=== PATIENT | male | born 1950 | race Caucasian/White ===

== ENCOUNTER → 2016-02-24 | Outpatient (CLI) | payer OTHER, MEDICARE ==
[~2016-02-24] MED LIST: AMOX500T3 PO; ATOR-22 PO; CITA10TA4 PO; CITA20TA9 PO; FLUC200T PO; GLC/500 PO; LEVO50TA PO; LVMI SC; LVMI SQ; METF500T5 PO; METR-163 PO; PIPE1INJ11 IV; PROB1TAB16 PO; SULF800T23 PO; VANC5CAP PO
[2016-02-24 13:21] LABS: HEMATOCRIT 28.7 % (42-52); MEAN CELL VOLUME 76.7 fL (80-100); MEAN CORPUSCULAR HEMOGLOBIN 24.9 pg (25-34); MEAN CORPUSCULAR HGB CONC 32.4 g/dl (32-36); MEAN PLATELET VOLUME 10.1 fL (7.4-10.4); PLATELET COUNT 347 K/uL (130-400); RED BLOOD COUNT 3.74 M/uL (4.7-6.1); WHITE BLOOD COUNT 8.27 K/uL (4.8-10.8)
[2016-02-24 13:32] LABS: ALT/SGPT 38 U/L (12-78); AST/SGOT 21 U/L (15-37); BLOOD UREA NITROGEN 15 mg/dl (7-18); BUN/CREATININE RATIO 14.6 (10-20); CALCIUM 8.5 mg/dl (8.5-10.1); CARBON DIOXIDE 28 mmol/L (21-32); CHLORIDE 103 mmol/L (98-107); GLUCOSE 215 mg/dl (70-99); POTASSIUM 4.1 mmol/L (3.5-5.1); SODIUM 137 mmol/L (136-145)
[2016-02-24 13:35] LABS: ALB/GLOB RATIO 0.6 (0.9-2); ALKALINE PHOSPHATASE 85 U/L (45-117); C-REACTIVE PROTEIN 0.83 mg/dl (0-0.29)
== END | disposition home or self-care (01) ==
LOC: C.LABSPEC 11:15
PROVIDERS: ATTEND Internal Medicine Infectious Disease
DX: L03.90 Cellulitis, unspecified (principal)

== ENCOUNTER → 2016-03-04 | Outpatient (CLI) | payer OTHER ==
[2016-03-04 20:02] LABS: HEMATOCRIT 31.3 % (42-52); MEAN CELL VOLUME 77.3 fL (80-100); MEAN CORPUSCULAR HEMOGLOBIN 24.9 pg (25-34); MEAN CORPUSCULAR HGB CONC 32.3 g/dl (32-36); MEAN PLATELET VOLUME 10.2 fL (7.4-10.4); PLATELET COUNT 357 K/uL (130-400); RED BLOOD COUNT 4.05 M/uL (4.7-6.1); WHITE BLOOD COUNT 7.49 K/uL (4.8-10.8)
[2016-03-04 20:19] LABS: ALT/SGPT 25 U/L (12-78); BLOOD UREA NITROGEN 24 mg/dl (7-18); BUN/CREATININE RATIO 27.6 (10-20); C-REACTIVE PROTEIN < 0.29 mg/dl (0-0.29); CALCIUM 9.1 mg/dl (8.5-10.1); CARBON DIOXIDE 27 mmol/L (21-32); CHLORIDE 102 mmol/L (98-107); CREATININE 0.86 mg/dl (0.60-1.40); GLUCOSE 161 mg/dl (70-99); POTASSIUM 3.9 mmol/L (3.5-5.1); SODIUM 140 mmol/L (136-145)
[2016-03-04 20:22] LABS: ALB/GLOB RATIO 0.7 (0.9-2); ALKALINE PHOSPHATASE 88 U/L (45-117); AST/SGOT 19 U/L (15-37)
== END | disposition home or self-care (01) ==
LOC: C.LABSPEC 10:50
PROVIDERS: ATTEND Internal Medicine Infectious Disease
DX: Z51.81 Encounter for therapeutic drug level monitoring (principal); Z79.2 Long term (current) use of antibiotics

== ENCOUNTER → 2016-03-12 | Outpatient (CLI) | payer OTHER ==
[~2016-03-12] MED LIST changes: -FLUC200T PO; -METR-163 PO; -PIPE1INJ11 IV
== END | disposition home or self-care (01) ==
LOC: C.LABSPEC 09:13
PROVIDERS: ATTEND Internal Medicine
DX: B96.89 Other specified bacterial agents as the cause of diseases classified elsewhere (principal)

== ENCOUNTER 2016-03-20 12:35 | Day surgery (SDC) | payer OTHER, MEDICARE ==
[~2016-03-20] VITALS: Ht 177.8 cm; Wt 81.0 kg
[~2016-03-20 12:35] MED LIST changes: -AMOX500T3 PO; -CITA20TA9 PO; -LEVO50TA PO; -METF500T5 PO; -VANC5CAP PO
[2016-03-20 12:58] VITALS: BP 122/82; PULSE 95; TEMP 36.8; O2SAT 96; Ht 177.8 cm; Wt 81.0 kg
[2016-03-20] MEDS ORDERED: VANC5CAP PO (12:58)
[2016-04-09] MEDS ORDERED: VANC5CAP PO (14:50)
[2016-05-14] MEDS ORDERED: LEVO50TA PO (15:06)
== END 2016-03-30 13:51 | disposition home or self-care (01) ==
LOC: C.MTU 12:35
PROVIDERS: ATTEND Internal Medicine Infectious Disease
DX: L89.153 Pressure ulcer of sacral region, stage 3 (principal); B96.89 Other specified bacterial agents as the cause of diseases classified elsewhere; E11.9 Type 2 diabetes mellitus without complications; L89.612 Pressure ulcer of right heel, stage 2; L89.152 Pressure ulcer of sacral region, stage 2; L89.620 Pressure ulcer of left heel, unstageable; B96.5 Pseudomonas (aeruginosa) (mallei) (pseudomallei) as the cause of diseases classified elsewhere; B95.62 Methicillin resistant Staphylococcus aureus infection as the cause of diseases classified elsewhere; Z79.4 Long term (current) use of insulin

== ENCOUNTER → 2016-04-24 | Outpatient (CLI) | payer OTHER, MEDICARE ==
[~2016-04-24] MED LIST changes: +AMOX500T PO; +AMOX500T3 PO; +CITA20TA9 PO; +LEVO50TA PO; +METF500T5 PO; +VANC5CAP PO
[2016-04-24 17:07] LABS: ALT/SGPT 213 U/L (12-78); AST/SGOT 96 U/L (15-37); BLOOD UREA NITROGEN 28 mg/dl (7-18); CALCIUM 8.9 mg/dl (8.5-10.1); CARBON DIOXIDE 28 mmol/L (21-32); CHLORIDE 101 mmol/L (98-107); CREATININE 0.99 mg/dl (0.60-1.40); GLUCOSE 186 mg/dl (70-99); POTASSIUM 4.3 mmol/L (3.5-5.1); SODIUM 138 mmol/L (136-145)
[2016-04-24 17:10] LABS: HEMATOCRIT 35.6 % (42-52); MEAN CELL VOLUME 79.3 fL (80-100); MEAN CORPUSCULAR HEMOGLOBIN 26.3 pg (25-34); MEAN CORPUSCULAR HGB CONC 33.1 g/dl (32-36); MEAN PLATELET VOLUME 10.6 fL (7.4-10.4); PLATELET COUNT 313 K/uL (130-400); RED BLOOD COUNT 4.49 M/uL (4.7-6.1); WHITE BLOOD COUNT 8.24 K/uL (4.8-10.8)
[2016-04-24 17:18] LABS: ALB/GLOB RATIO 0.7 (0.9-2); ALKALINE PHOSPHATASE 188 U/L (45-117); CHOLESTEROL 110 mg/dl (0-200); CHOLESTEROL/HDL RATIO 3.8; HDL CHOLESTEROL 29 mg/dl; LDL CHOLESTEROL CALCULATED 59 mg/dl; TRIGLYCERIDES 109 mg/dl (0-150); VERY LOW DENSITY LIPOPROT CALC 22 mg/dl
[2016-04-25 06:03] LABS: ESTIMATED AVERAGE GLUCOSE 134 mg/dl; HA1C FLAG Normal (Normal)
== END | disposition home or self-care (01) ==
LOC: C.LABBFT 13:34
PROVIDERS: ATTEND Internal Medicine
DX: E11.65 Type 2 diabetes mellitus with hyperglycemia (principal)

== ENCOUNTER → 2016-04-27 | Outpatient (CLI) | payer OTHER, MEDICARE ==
[~2016-04-27] MED LIST changes: -AMOX500T PO
== END | disposition home or self-care (01) ==
LOC: C.LABSPEC 10:46
PROVIDERS: ATTEND Internal Medicine
DX: B96.89 Other specified bacterial agents as the cause of diseases classified elsewhere (principal)

== ENCOUNTER → 2016-05-14 | Outpatient (CLI) | payer OTHER, MEDICARE ==
[~2016-05-14] MED LIST changes: +AMOX500T PO
[2016-05-14 17:43] LABS: ALKALINE PHOSPHATASE 188 U/L (45-117); ALT/SGPT 71 U/L (12-78); AST/SGOT 24 U/L (15-37)
== END | disposition home or self-care (01) ==
LOC: C.LABBFT 13:45
PROVIDERS: ATTEND Internal Medicine
DX: R74.8 Abnormal levels of other serum enzymes (principal)

== ENCOUNTER → 2016-05-18 | Outpatient (CLI) | payer OTHER, MEDICARE ==
[~2016-05-18] MED LIST changes: -AMOX500T PO; -ATOR-22 PO
[2016-05-18 18:57] LABS: URINE APPEARANCE CLOUDY (CLEAR); URINE BILIRUBIN NEG (NEG); URINE COLOR YELLOW; URINE EPITHELIAL CELL AUTO >30 /lpf (0-5); URINE NITRITE NEG (NEG); URINE SPECIFIC GRAVITY 1.017 (1.000-1.030); UROBILINOGEN NEG (NEG)
[2016-05-18 18:59] LABS: MANUAL MICROSCOPIC REQUIRED? NO; REVIEW REQ? YES
== END | disposition home or self-care (01) ==
LOC: C.LABSPEC 17:23
PROVIDERS: ATTEND Urology
DX: R31.9 Hematuria, unspecified (principal)

== ENCOUNTER 2016-05-20 09:19 | Emergency (ER) | payer OTHER, MEDICARE ==
[~2016-05-20 09:19] MED LIST changes: -AMOX500T3 PO; -CITA20TA9 PO; -METF500T5 PO
[2016-05-20 09:26] VITALS: Ht 177.8 cm
[2016-05-20] MEDS ORDERED: CITA20TA9 PO (09:44)
[2016-05-20] MEDS ORDERED: METF500T5 PO (09:44)
[2016-05-20] MEDS ORDERED: VANC5CAP PO (09:44)
[2016-05-20] MEDS ORDERED: SULF800T23 PO (09:44)
[2016-05-20] MEDS ORDERED: CEFTRIAXONE SOD INJ 1 GM ADDVIAL IV STA (09:55)
[2016-05-20] MEDS ORDERED: SODIUM CHLORIDE 0.9% 1000ML 1,000 ML IV STA (09:55)
[2016-05-20] MEDS ORDERED: CEFAZOLIN SOD 1000MG/55 ML D5W IV STA (10:07)
[2016-05-20 10:19] LABS: MANUAL MICROSCOPIC REQUIRED? NO; REVIEW REQ? YES; URINE APPEARANCE TURBID (CLEAR); URINE BILIRUBIN NEG (NEG); URINE COLOR DK YELLOW; URINE EPITHELIAL CELL AUTO 20-30 /lpf (0-5); URINE NITRITE NEG (NEG); URINE SPECIFIC GRAVITY 1.017 (1.000-1.030); UROBILINOGEN NEG (NEG); ZZURINE CULT IF INDIC CATH YES
[2016-05-20 10:44] LABS: URINE PATH CASTS 1-5 GRANULAR CASTS /lpf (0)
[2016-05-20 10:51] LABS: BASO % 0.1 %; BASO ABS # 0.01 K/uL (0-0.2); EOS % 0.2 %; HEMATOCRIT 29.2 % (42-52); IG% 0.2 %; LYMPH % 3.1 %; LYMPH ABS # 0.37 K/uL (1.2-3.4); MEAN CELL VOLUME 80.9 fL (80-100); MEAN CORPUSCULAR HEMOGLOBIN 27.4 pg (25-34); MEAN CORPUSCULAR HGB CONC 33.9 g/dl (32-36); MEAN PLATELET VOLUME 10.9 fL (7.4-10.4); MONO % 3.7 %; NEUT % 92.7 %; PLATELET COUNT 256 K/uL (130-400); RED BLOOD COUNT 3.61 M/uL (4.7-6.1); WHITE BLOOD COUNT 12.01 K/uL (4.8-10.8)
[2016-05-20] MEDS ORDERED: AMPICILLIN IV 1 GM in SODIUM CHLOR 0.9% AD-VAN 50ML 50 ML IV ONE (11:15)
[2016-05-20 11:21] LABS: ANISOCYTOSIS PRESENT; COMPLETE YES
[2016-05-20 11:25] LABS: ALT/SGPT 79 U/L (12-78); BLOOD UREA NITROGEN 39 mg/dl (7-18); CALCIUM 8.9 mg/dl (8.5-10.1); CARBON DIOXIDE 24 mmol/L (21-32); CHLORIDE 99 mmol/L (98-107); GLUCOSE 68 mg/dl (70-99); POTASSIUM 4.3 mmol/L (3.5-5.1); SODIUM 133 mmol/L (136-145)
[2016-05-20 11:28] LABS: ALB/GLOB RATIO 0.7 (0.9-2); ALKALINE PHOSPHATASE 220 U/L (45-117); AST/SGOT 59 U/L (15-37)
[2016-05-20] MEDS ORDERED: AMOX500T3 PO (12:17)
--- NOTE | 2016-05-20 12:19 | EMERGENCY ROOM VISIT NOTE ---
History Report prepared by Rubio: Emilie Lux Under the Supervision of: Dr. Jatinder Alejandro D.O. First contact with patient: 09:49 Chief Complaint: URINARY SYMPTOMS Stated Complaint: UTI History of Present Illness The patient is a paraplegic 66 year old male who presents to the Emergency Room with complaints of a persistent fever since this morning. 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 3 days ago, the patient's suspects that his catheter became clogged because the following day his abdomen was very distended. The home nurse came 2 days ago in the morning to change his catheter. His states that he drained a large volume of urine at that time. His urine was dark and malodorous with sediment, so it was sent to the lab for testing. They have not heard back with results. Yesterday, his notes that the patient was not acting himself and did not want to eat. This morning, his took his temperature as she does every morning, and it was elevated. His blood sugar was 62 so she gave him some orange juice to drink. His has noticed that his testicles appear red and swollen compared to baseline. Currently, the patient does not have any specific complaints and states that he is feeling alright. He had blood work a week ago and was informed that his liver enzymes were elevated so he needs a liver scan. Denies cold symptoms, sore throat, runny nose, cough, shortness of breath, chest pain, nausea, or other complaints. The patient is chronically on Bactrim and is also on Vancomycin to prevent C. diff. He does not have a history of MRSA. Source of History: patient, spouse/significant other Onset: this morning Position: other (global) Quality: other (fever) Timing: other (persistent) Associated Symptoms: + urinary symptoms (dark, malodorous urine with sediment), No SOB, No chest pain, No cough, No nausea, No sorethroat Review of Systems See HPI for pertinent positives & negatives. A total of 10 systems reviewed and were otherwise negative. Past Medical & Surgical Medical Problems: (1) Diabetes (2) Paraplegia (3) Pneumonia Family History Cancer Social History Smoking Status: Never Smoker Alcohol Use: occasionally Drug Use: none Marital Status: Occupation Status: disabled Current/Historical Medications Scheduled Citalopram Hydrobromide (Celexa), 20 MG PO DAILY Insulin Detemir (Levemir), 10 UNITS SC DAILY Insulin Detemir (Levemir), 15 UNITS SQ QPM Metformin Hcl Er (Glucophage Er), 500 MG PO QPM Probiotic Product (Probiotic), 1 TAB PO QPM Sulfa/Trimethoprim (Bactrim Ds 800MG/160MG), 1 TAB PO BID Vancomycin Hcl (Vancomycin), 125 MG PO DAILY Allergies Coded Allergies: No Known Allergies (Unverified , 05/20/16) Physical Exam Vital Signs Date Time Temp Pulse Resp B/P Pulse Ox O2 Delivery O2 Flow Rate FiO2 05/20/16 11:15 85 18 122/67 05/20/16 09:26 38.2 86 20 116/70 95 Room Air Physical Exam CONSTITUTIONAL/VITAL SIGNS: Reviewed / noted above. GENERAL: Non-toxic in appearance. INTEGUMENTARY: Warm, dry, and [place]. HEAD: Normocephalic. EYES: without scleral icterus or trauma. ENT/OROPHARYNX: clear and moist. LYMPHADENOPATHY/NECK: Is supple without lymphadenopathy or meningismus. RESPIRATORY: Lungs clear and equal. CARDIOVASCULAR: Regular rate and rhythm. GI/ABDOMEN: Soft and nontender. No organomegaly or pulsatile mass. No rebound or guarding. Normal bowel sounds. EXTREMITIES: Warm and well perfused. BACK: No CVA tenderness. NEUROLOGICAL: Chronic quadriplegia. PSYCHIATRIC: normal affect. MUSCULOSKELETAL: Normally developed with good muscle tone. Medical Decision & Procedures Laboratory Results 05/20/16 10:20 Red Blood Count 3.61, Mean Corpuscular Volume 80.9, Mean Corpuscular Hemoglobin 27.4, Mean Corpuscular Hemoglobin Concent 33.9, Mean Platelet Volume 10.9, Neutrophils (%) (Auto) 92.7, Lymphocytes (%) (Auto) 3.1, Monocytes (%) (Auto) 3.7, Eosinophils (%) (Auto) 0.2, Basophils (%) (Auto) 0.1, Neutrophils # (Auto) 11.14, Lymphocytes # (Auto) 0.37, Monocytes # (Auto) 0.45, Eosinophils # (Auto) 0.02, Basophils # (Auto) 0.01 05/20/16 10:20 Test 05/20/16 00:00 05/20/16 10:20 Urine Color DK YELLOW Urine Appearance TURBID (CLEAR) Urine pH 5.0 (4.5-7.5) Urine Specific [place] 1.017 (1.000-1.030) Urine Protein 1+ (NEG) Urine Glucose (UA) NEG (NEG) Urine Ketones NEG (NEG) Urine Occult Blood 2+ (NEG) Urine Nitrite NEG (NEG) Urine Bilirubin NEG (NEG) Urine Urobilinogen NEG (NEG) Urine Leukocyte Esterase LARGE (NEG) Urine WBC (Auto) >30 /hpf (0-5) Urine RBC (Auto) >30 /hpf (0-4) Urine Hyaline Casts (Auto) 1-5 /lpf (0-5) Urine Epithelial Cells (Auto) 20-30 /lpf (0-5) Urine Bacteria (Auto) NEG (NEG) Urine Crystals URIC ACID (NONE PRSENT) Urine Pathogenic Casts 1-5 GRANULAR CASTS /lpf (0) Urine Yeast (Auto) BUD W/ HYPHAE (NONE PRSENT) White Blood Count 12.01 K/uL (4.8-10.8) Red Blood Count 3.61 M/uL (4.7-6.1) Hemoglobin 9.9 g/dL (14.0-18.0) Hematocrit 29.2 % (42-52) Mean Corpuscular Volume 80.9 fL (80-100) Mean Corpuscular Hemoglobin 27.4 pg (25-34) Mean Corpuscular Hemoglobin Concent 33.9 g/dl (32-36) Platelet Count 256 K/uL (130-400) Mean Platelet Volume 10.9 fL (7.4-10.4) Neutrophils (%) (Auto) 92.7 % Lymphocytes (%) (Auto) 3.1 % Monocytes (%) (Auto) 3.7 % Eosinophils (%) (Auto) 0.2 % Basophils (%) (Auto) 0.1 % Neutrophils # (Auto) 11.14 K/uL (1.4-6.5) Lymphocytes # (Auto) 0.37 K/uL (1.2-3.4) Monocytes # (Auto) 0.45 K/uL (0.11-0.59) Eosinophils # (Auto) 0.02 K/uL (0-0.5) Basophils # (Auto) 0.01 K/uL (0-0.2) RDW Standard Deviation 64.1 fL (36.4-46.3) RDW Coefficient of Variation 21.8 % (11.5-14.5) Immature Granulocyte % (Auto) 0.2 % Immature Granulocyte # (Auto) 0.02 K/uL (0.00-0.02) Anisocytosis PRESENT Anion Gap 10.0 mmol/L (3-11) Estimated GFR () 55.8 Estimated GFR (Non- 48.2 BUN/Creatinine Ratio 26.0 (10-20) Calcium Level 8.9 mg/dl (8.5-10.1) Total Bilirubin 0.7 mg/dl (0.2-1) Aspartate Amino Transf (AST/SGOT) 59 U/L (15-37) Alanine Aminotransferase (ALT/SGPT) 79 U/L (12-78) Alkaline Phosphatase 220 U/L (45-117) Total Protein 6.6 gm/dl (6.4-8.2) Albumin 2.7 gm/dl (3.4-5.0) Globulin 3.9 gm/dl (2.5-4.0) Albumin/Globulin Ratio 0.7 (0.9-2) Laboratory results as stated above per my review. Medications Administered Medications (Trade) Dose Ordered Sig/Abby Route Start Time Stop Time Status Last Admin Dose Admin Ceftriaxone Sodium 1 gm 1 gm NOW STAT IV 05/20/16 09:55 05/20/16 09:58 DC 05/20/16 10:41 1 GM Sodium Chloride (Nss 1000ml) 1,000 ml @ 999 mls/hr Q1H1M STAT IV 05/20/16 09:55 05/20/16 10:55 DC 05/20/16 10:40 999 MLS/HR Cefazolin Sodium 1000 mg 1,000 mg NOW STAT IV 05/20/16 10:07 05/20/16 10:10 DC 05/20/16 11:02 1,000 MG Ampicillin Sodium/ Sodium Chloride (Ampicillin Iv/ Nss Ad-Van 50ml) 50 ml @ 100 mls/hr ONE ONCE IV 05/20/16 11:15 05/20/16 11:44 DC 05/20/16 11:46 100 MLS/HR ED Course 0951: Previous medical records were reviewed. The patient was evaluated in room B7. A complete history and physical examination was performed. 0955: Ordered NSS 1000 ml @ 999 mls/hr IV, Rocephin Inj 1 gm IV. 1007: Ordered Cefazolin Sodium 1000 mg IV. 1115: Ordered Ampicillin Sodium 1 gm/NSS 50 ml @ 100 mls/hr IV. 1205: On reevaluation, the patient is resting comfortably. I discussed the results and findings with the patient and his family. They verbalized agreement of the treatment plan. The patient was discharged home. Medical Decision Differential includes viral illness, influenza, streptococcal pharyngitis, meningitis, pneumonia, sinusitis, UTI, pyelonephritis, otitis media. . This is a 66-year-old male who presents to the ED with a chief complaint of urinary symptoms and fever. The patient had a urinalysis a few days ago after his Brown catheter was clogged. This was changed by the home health nurse. A urine culture initially was not back when he came in but then returned during his ED evaluation. Reveals enterococcus faecalis with sensitivities. The patient's exam was relatively unremarkable. He denies any specific complaints. White blood count was 12. Hemoglobin is 9.9. Urine suggest UTI. Urine culture was sensitive to ampicillin. The patient was initially given some Rocephin and Ancef as well as a liter of IV fluids. He was then given ampicillin IV. The BUN was 39 and creatinine was 1.5. AST and ALT are slightly elevated. The patient is comfortable going home. He was felt to be stable for discharge. He was discharged on amoxicillin. Impression Primary Impression: Urinary tract infection Scribe Attestation The scribe's documentation has been prepared under my direction and personally reviewed by me in its entirety. I confirm that the note above accurately reflects all work, treatment, procedures, and medical decision making performed by me. Departure Information Dispostion Home / Self-Care Prescriptions Amoxicillin (AMOXIL) 500 Mg Tab 1 TAB PO BID for 7 Days, #14 TAB Prov: Jatinder Alejandro D.O. 05/20/16 Referrals Luis Enrique Weinstein M.D. (PCP) Patient Instructions My [facility], UTI, UTI Catheter Associated Additional Instructions Amoxicillin as prescribed. Follow-up with your doctor for further care and evaluation in 1-2 days. Return to the emergency department for worsening or new symptoms or any concerns. You have been examined and treated today on an emergency basis only. This is not a substitute for, or an effort to provide, complete comprehensive medical care. It is impossible to recognize and treat all injuries or illnesses in a single emergency department visit. It is therefore important that you follow up closely with your doctor. Call as soon as possible for an appointment.
[2016-05-20 12:25] VITALS: BP 129/62; PULSE 82; TEMP 37.7; O2SAT 96
== END 2016-05-20 12:26 | disposition home or self-care (01) ==
LOC: C.EDB 09:20
DX: N39.0 Urinary tract infection, site not specified (principal); G82.20 Paraplegia, unspecified; E11.9 Type 2 diabetes mellitus without complications; Z96.0 Presence of urogenital implants; Z79.2 Long term (current) use of antibiotics; Z79.4 Long term (current) use of insulin

== ENCOUNTER → 2016-05-27 | Outpatient (CLI) | payer OTHER, MEDICARE ==
[~2016-05-27] MED LIST changes: +AMOX500T PO; +AMOX500T3 PO; -CITA10TA4 PO; +CITA20TA9 PO; -GLC/500 PO; -LEVO50TA PO; +METF500T5 PO
--- NOTE | 2016-05-27 09:38 | DIAGNOSTIC IMAGING REPORT ---
ABDOMINAL ULTRASOUND, RIGHT UPPER QUADRANT HISTORY: R74.8 Elevated liver enzymes Nothing to eat or drink after midnig. COMPARISON: None. FINDINGS: Pancreas: The pancreatic head and tail are obscured by overlying bowel gas. The remaining portions of the pancreas are within normal limits. Liver: Unremarkable. Gallbladder: No gallbladder wall thickening. No gallstones. CBD: 4 mm. Right kidney: Not well visualized due to overlying bowel gas. However, there appears to be mild right hydronephrosis. IMPRESSION: 1. The right kidney is partially obscured by overlying bowel gas. However, there appears to be mild right hydronephrosis. 2. Normal gallbladder. No gallstones. Electronically signed by: Chay Mancini M.D. 05/27/2016 9:37 AM Dictated Date/Time: 05/27/2016 9:35 AM
== END | disposition home or self-care (01) ==
LOC: C.ULTR 08:57
PROVIDERS: ATTEND Internal Medicine
DX: R74.8 Abnormal levels of other serum enzymes (principal)

== ENCOUNTER → 2016-09-03 | Outpatient (CLI) | payer OTHER, MEDICARE ==
[~2016-09-03] MED LIST changes: -AMOX500T PO; -AMOX500T3 PO; -SULF800T23 PO
[2016-09-03 17:20] LABS: BASO % 0.6 %; BASO ABS # 0.05 K/uL (0-0.2); COMPLETE YES; EOS % 11.6 %; HEMATOCRIT 35.2 % (42-52); IG% 0.2 %; LYMPH % 21.3 %; LYMPH ABS # 1.89 K/uL (1.2-3.4); MEAN CELL VOLUME 84.4 fL (80-100); MEAN CORPUSCULAR HEMOGLOBIN 28.8 pg (25-34); MEAN CORPUSCULAR HGB CONC 34.1 g/dl (32-36); MEAN PLATELET VOLUME 10.4 fL (7.4-10.4); MONO % 7.6 %; NEUT % 58.7 %; PLATELET COUNT 329 K/uL (130-400); RED BLOOD COUNT 4.17 M/uL (4.7-6.1); WHITE BLOOD COUNT 8.89 K/uL (4.8-10.8)
[2016-09-03 17:38] LABS: ALT/SGPT 32 U/L (12-78); AST/SGOT 10 U/L (15-37); BLOOD UREA NITROGEN 26 mg/dl (7-18); BUN/CREATININE RATIO 29.3 (10-20); CALCIUM 9.3 mg/dl (8.5-10.1); CARBON DIOXIDE 27 mmol/L (21-32); CHLORIDE 103 mmol/L (98-107); GLUCOSE 179 mg/dl (70-99); POTASSIUM 4.1 mmol/L (3.5-5.1); SODIUM 138 mmol/L (136-145)
[2016-09-03 17:49] LABS: ALB/GLOB RATIO 0.8 (0.9-2); ALKALINE PHOSPHATASE 121 U/L (45-117); CHOLESTEROL 204 mg/dl (0-200); CHOLESTEROL/HDL RATIO 6.8; HDL CHOLESTEROL 30 mg/dl; LDL CHOLESTEROL CALCULATED 136 mg/dl; TRIGLYCERIDES 188 mg/dl (0-150); VERY LOW DENSITY LIPOPROT CALC 38 mg/dl
[2016-09-03 18:48] LABS: ESTIMATED AVERAGE GLUCOSE 123 mg/dl; HA1C FLAG Normal (Normal)
== END | disposition home or self-care (01) ==
LOC: C.LABBFT 10:02
PROVIDERS: ATTEND Internal Medicine
DX: E03.9 Hypothyroidism, unspecified (principal); E11.9 Type 2 diabetes mellitus without complications

== ENCOUNTER → 2017-04-16 | Outpatient (CLI) | payer OTHER, MEDICARE ==
[~2017-04-16] MED LIST changes: -VANC5CAP PO
[2017-04-16 16:46] LABS: BASO % 0.2 %; BASO ABS # 0.03 K/uL (0-0.2); EOS % 6.5 %; EOS ABS # 0.78 K/uL (0-0.5); HEMATOCRIT 35.5 % (42-52); HEMOGLOBIN 11.8 g/dL (14.0-18.0); IG# 0.07 K/uL (0.00-0.02); LYMPH % 17.9 %; LYMPH ABS # 2.17 K/uL (1.2-3.4); MEAN CORPUSCULAR HEMOGLOBIN 27.3 pg (25-34); MEAN CORPUSCULAR HGB CONC 33.2 g/dl (32-36); MEAN PLATELET VOLUME 10.5 fL (7.4-10.4); MONO ABS # 0.85 K/uL (0.11-0.59); NEUT % 67.8 %; NEUT ABS # 8.19 K/uL (1.4-6.5); PLATELET COUNT 474 K/uL (130-400); RED CELL DISTRIBUTION WIDTH SD 60.4 fL (36.4-46.3); WHITE BLOOD COUNT 12.09 K/uL (4.8-10.8)
[2017-04-16 17:00] LABS: ALBUMIN 3.1 gm/dl (3.4-5.0); ALT/SGPT 23 U/L (12-78); BLOOD UREA NITROGEN 25 mg/dl (7-18); CALCIUM 9.3 mg/dl (8.5-10.1); CARBON DIOXIDE 26 mmol/L (21-32); CHOLESTEROL 196 mg/dl (0-200); CREATININE 0.98 mg/dl (0.60-1.40); GLUCOSE 188 mg/dl (70-99); POTASSIUM 4.1 mmol/L (3.5-5.1); SODIUM 135 mmol/L (136-145)
[2017-04-16 17:10] LABS: ALKALINE PHOSPHATASE 100 U/L (45-117); AST/SGOT 11 U/L (15-37); LDL CHOLESTEROL CALCULATED 131 mg/dl; TOTAL PROTEIN 7.8 gm/dl (6.4-8.2)
[2017-04-17 06:58] LABS: HEMOGLOBIN A1C 7.5 % (4.5-5.6)
== END | disposition home or self-care (01) ==
LOC: C.LABBFT 13:39
PROVIDERS: ATTEND Internal Medicine
DX: E78.00 Pure hypercholesterolemia, unspecified (principal); E03.9 Hypothyroidism, unspecified; E11.9 Type 2 diabetes mellitus without complications; Z12.5 Encounter for screening for malignant neoplasm of prostate

== ENCOUNTER → 2017-04-30 | Outpatient (CLI) | payer OTHER, MEDICARE ==
[~2017-04-30] MED LIST changes: +NITR1CAP32 PO; +SULF800T23 PO
== END | disposition home or self-care (01) ==
LOC: C.LABSPEC 10:03
PROVIDERS: ATTEND Internal Medicine
DX: R82.90 Unspecified abnormal findings in urine (principal)

== ENCOUNTER → 2017-07-07 | Outpatient (CLI) | payer OTHER, MEDICARE ==
[~2017-07-07] MED LIST changes: +LEVO50TA PO
== END | disposition home or self-care (01) ==
LOC: C.LABSPEC 11:02
PROVIDERS: ATTEND Nurse Practitioner
DX: R39.9 Unspecified symptoms and signs involving the genitourinary system (principal)

== ENCOUNTER → 2017-07-26 | Outpatient (CLI) | payer OTHER, MEDICARE ==
[~2017-07-26] MED LIST changes: +AMX500 PO; +CEFE1INJ3 IV; +CEFE2INJ2 IV; +CLS1 PO; +CMD3 PO; +DFC200 PO; +LVMIPEN SQ; +MCTP EXT; -METF500T5 PO; +NVLGIPEN SC; +SODI650T8 PO; -SULF800T23 PO; +TRMCR180 EXT; +VANC1CAP19 PO
[2017-07-26 12:18] LABS: HEMATOCRIT 24.9 % (42-52); HEMOGLOBIN 8.2 g/dL (14.0-18.0); MEAN CELL VOLUME 84.4 fL (80-100); MEAN CORPUSCULAR HEMOGLOBIN 27.8 pg (25-34); MEAN CORPUSCULAR HGB CONC 32.9 g/dl (32-36); MEAN PLATELET VOLUME 10.7 fL (7.4-10.4); PLATELET COUNT 246 K/uL (130-400); RED CELL DISTRIBUTION WIDTH CV 21.2 % (11.5-14.5); WHITE BLOOD COUNT 26.69 K/uL (4.8-10.8)
[2017-07-26 12:47] LABS: ALBUMIN 1.9 gm/dl (3.4-5.0); ALKALINE PHOSPHATASE 124 U/L (45-117); ALT/SGPT 16 U/L (12-78); AST/SGOT 10 U/L (15-37); BLOOD UREA NITROGEN 43 mg/dl (7-18); CALCIUM 8.6 mg/dl (8.5-10.1); CARBON DIOXIDE 18 mmol/L (21-32); CREATININE 2.74 mg/dl (0.60-1.40); GLUCOSE 239 mg/dl (70-99); POTASSIUM 3.8 mmol/L (3.5-5.1); SODIUM 133 mmol/L (136-145); TOTAL PROTEIN 6.7 gm/dl (6.4-8.2)
== END | disposition home or self-care (01) ==
LOC: C.LABSPEC 10:00
PROVIDERS: ATTEND Internal Medicine Infectious Disease
DX: Z01.89 Encounter for other specified special examinations (principal)

== ENCOUNTER → 2017-09-06 | Outpatient (CLI) | payer OTHER, MEDICARE ==
[~2017-09-06] MED LIST changes: -CEFE2INJ2 IV; -LVMI SC; -LVMI SQ; -NITR1CAP32 PO; -PROB1TAB16 PO
[2017-09-06 12:25] LABS: BASO % 0.2 %; BASO ABS # 0.03 K/uL (0-0.2); EOS % 10.8 %; EOS ABS # 1.56 K/uL (0-0.5); HEMATOCRIT 25.6 % (42-52); IG# 0.14 K/uL (0.00-0.02); LYMPH % 15.8 %; LYMPH ABS # 2.27 K/uL (1.2-3.4); MEAN CELL VOLUME 86.2 fL (80-100); MEAN CORPUSCULAR HEMOGLOBIN 26.9 pg (25-34); MEAN CORPUSCULAR HGB CONC 31.3 g/dl (32-36); MEAN PLATELET VOLUME 10.7 fL (7.4-10.4); MONO ABS # 1.01 K/uL (0.11-0.59); NEUT % 65.2 %; NEUT ABS # 9.39 K/uL (1.4-6.5); PLATELET COUNT 354 K/uL (130-400); RED CELL DISTRIBUTION WIDTH CV 20.4 % (11.5-14.5); RED CELL DISTRIBUTION WIDTH SD 65.1 fL (36.4-46.3)
[2017-09-06 12:32] LABS: INR 1.2 (0.9-1.1)
[2017-09-06 17:32] LABS: ALKALINE PHOSPHATASE 80 U/L (45-117); ALT/SGPT 25 U/L (12-78); AST/SGOT 17 U/L (15-37); BLOOD UREA NITROGEN 57 mg/dl (7-18); CALCIUM 8.4 mg/dl (8.5-10.1); CARBON DIOXIDE 23 mmol/L (21-32); CREATININE 3.07 mg/dl (0.60-1.40); GLUCOSE 164 mg/dl (70-99); POTASSIUM 4.5 mmol/L (3.5-5.1); SODIUM 139 mmol/L (136-145); TOTAL PROTEIN 6.6 gm/dl (6.4-8.2)
== END | disposition home or self-care (01) ==
LOC: C.LABSPEC 17:18
PROVIDERS: ATTEND Internal Medicine
DX: N39.0 Urinary tract infection, site not specified (principal); I82.409 Acute embolism and thrombosis of unspecified deep veins of unspecified lower extremity; Z79.2 Long term (current) use of antibiotics

== ENCOUNTER → 2017-09-10 | Outpatient (CLI) | payer OTHER, MEDICARE ==
[2017-09-10 17:38] LABS: BASO % 0.1 %; BASO ABS # 0.02 K/uL (0-0.2); EOS % 13.7 %; EOS ABS # 2.06 K/uL (0-0.5); HEMATOCRIT 24.5 % (42-52); HEMOGLOBIN 7.8 g/dL (14.0-18.0); IG# 0.07 K/uL (0.00-0.02); MEAN CELL VOLUME 85.4 fL (80-100); MEAN CORPUSCULAR HEMOGLOBIN 27.2 pg (25-34); MEAN CORPUSCULAR HGB CONC 31.8 g/dl (32-36); MEAN PLATELET VOLUME 10.6 fL (7.4-10.4); MONO % 7.7 %; MONO ABS # 1.15 K/uL (0.11-0.59); NEUT ABS # 9.03 K/uL (1.4-6.5); PLATELET COUNT 346 K/uL (130-400); RED CELL DISTRIBUTION WIDTH CV 19.8 % (11.5-14.5); RED CELL DISTRIBUTION WIDTH SD 63.1 fL (36.4-46.3); WHITE BLOOD COUNT 15.03 K/uL (4.8-10.8)
[2017-09-10 18:01] LABS: ALBUMIN 2.1 gm/dl (3.4-5.0); ALKALINE PHOSPHATASE 87 U/L (45-117); ALT/SGPT 21 U/L (12-78); AST/SGOT 17 U/L (15-37); BLOOD UREA NITROGEN 51 mg/dl (7-18); CALCIUM 8.5 mg/dl (8.5-10.1); CARBON DIOXIDE 28 mmol/L (21-32); CREATININE 3.31 mg/dl (0.60-1.40); GLUCOSE 160 mg/dl (70-99); POTASSIUM 4.5 mmol/L (3.5-5.1); SODIUM 137 mmol/L (136-145); TOTAL PROTEIN 6.7 gm/dl (6.4-8.2)
== END | disposition home or self-care (01) ==
LOC: C.LABSPEC 15:50
PROVIDERS: ATTEND Internal Medicine Infectious Disease
DX: N39.0 Urinary tract infection, site not specified (principal)

== ENCOUNTER → 2017-09-13 | Outpatient (CLI) | payer OTHER, MEDICARE ==
[2017-09-13 12:28] LABS: BASO % 0.3 %; BASO ABS # 0.04 K/uL (0-0.2); EOS % 11.2 %; EOS ABS # 1.48 K/uL (0-0.5); IG# 0.05 K/uL (0.00-0.02); LYMPH % 17.2 %; LYMPH ABS # 2.27 K/uL (1.2-3.4); MEAN CELL VOLUME 86.7 fL (80-100); MEAN CORPUSCULAR HEMOGLOBIN 26.7 pg (25-34); MEAN CORPUSCULAR HGB CONC 30.8 g/dl (32-36); MEAN PLATELET VOLUME 10.6 fL (7.4-10.4); MONO % 9.1 %; NEUT % 61.8 %; NEUT ABS # 8.14 K/uL (1.4-6.5); PLATELET COUNT 400 K/uL (130-400); RED CELL DISTRIBUTION WIDTH SD 64.9 fL (36.4-46.3); WHITE BLOOD COUNT 13.18 K/uL (4.8-10.8)
[2017-09-13 18:02] LABS: ALBUMIN 2.2 gm/dl (3.4-5.0); ALKALINE PHOSPHATASE 90 U/L (45-117); ALT/SGPT 23 U/L (12-78); AST/SGOT 17 U/L (15-37); BLOOD UREA NITROGEN 50 mg/dl (7-18); CALCIUM 8.4 mg/dl (8.5-10.1); CARBON DIOXIDE 27 mmol/L (21-32); CREATININE 3.23 mg/dl (0.60-1.40); GLUCOSE 67 mg/dl (70-99); POTASSIUM 5.2 mmol/L (3.5-5.1); SODIUM 137 mmol/L (136-145); TOTAL PROTEIN 7.1 gm/dl (6.4-8.2)
== END | disposition home or self-care (01) ==
LOC: C.LABSPEC 08:55
PROVIDERS: ATTEND Internal Medicine
DX: N39.0 Urinary tract infection, site not specified (principal)

== ENCOUNTER → 2017-09-20 | Outpatient (CLI) | payer OTHER, MEDICARE ==
[2017-09-20 13:16] LABS: BLOOD UREA NITROGEN 56 mg/dl (7-18); CREATININE 3.21 mg/dl (0.60-1.40); GLUCOSE 73 mg/dl (70-99)
[2017-09-20 13:17] LABS: ALBUMIN 2.4 gm/dl (3.4-5.0); ALKALINE PHOSPHATASE 111 U/L (45-117); ALT/SGPT 25 U/L (12-78); AST/SGOT 14 U/L (15-37); CALCIUM 8.4 mg/dl (8.5-10.1); CARBON DIOXIDE 24 mmol/L (21-32); POTASSIUM 5.4 mmol/L (3.5-5.1); SODIUM 137 mmol/L (136-145); TOTAL PROTEIN 7.3 gm/dl (6.4-8.2)
[2017-09-20 13:51] LABS: HEMATOCRIT 20.4 % (42-52); HEMOGLOBIN 6.4 g/dL (14.0-18.0); MEAN CELL VOLUME 86.4 fL (80-100); MEAN CORPUSCULAR HEMOGLOBIN 27.1 pg (25-34); MEAN CORPUSCULAR HGB CONC 31.4 g/dl (32-36); PLATELET COUNT 435 K/uL (130-400); RED CELL DISTRIBUTION WIDTH CV 19.7 % (11.5-14.5); RED CELL DISTRIBUTION WIDTH SD 62.8 fL (36.4-46.3); WHITE BLOOD COUNT 13.61 K/uL (4.8-10.8)
== END | disposition home or self-care (01) ==
LOC: C.LABSPEC 09:05
PROVIDERS: ATTEND Internal Medicine Infectious Disease
DX: Z01.89 Encounter for other specified special examinations (principal)

== ENCOUNTER → 2017-09-27 | Outpatient (CLI) | payer OTHER, MEDICARE ==
[2017-09-27 12:33] LABS: HEMATOCRIT 22.7 % (42-52); HEMOGLOBIN 7.2 g/dL (14.0-18.0); MEAN CELL VOLUME 85.3 fL (80-100); MEAN CORPUSCULAR HEMOGLOBIN 27.1 pg (25-34); MEAN CORPUSCULAR HGB CONC 31.7 g/dl (32-36); MEAN PLATELET VOLUME 10.4 fL (7.4-10.4); PLATELET COUNT 327 K/uL (130-400); RED CELL DISTRIBUTION WIDTH CV 20.3 % (11.5-14.5); RED CELL DISTRIBUTION WIDTH SD 64.2 fL (36.4-46.3); WHITE BLOOD COUNT 15.26 K/uL (4.8-10.8)
[2017-09-27 12:56] LABS: ALBUMIN 2.3 gm/dl (3.4-5.0); ALKALINE PHOSPHATASE 97 U/L (45-117); ALT/SGPT 21 U/L (12-78); AST/SGOT 13 U/L (15-37); BLOOD UREA NITROGEN 59 mg/dl (7-18); CALCIUM 8.5 mg/dl (8.5-10.1); CARBON DIOXIDE 27 mmol/L (21-32); CREATININE 3.36 mg/dl (0.60-1.40); GLUCOSE 189 mg/dl (70-99); POTASSIUM 4.2 mmol/L (3.5-5.1); SODIUM 135 mmol/L (136-145); TOTAL PROTEIN 6.8 gm/dl (6.4-8.2)
== END | disposition home or self-care (01) ==
LOC: C.LABSPEC 10:15
PROVIDERS: ATTEND Internal Medicine Infectious Disease
DX: Z01.89 Encounter for other specified special examinations (principal)

== ENCOUNTER → 2017-10-13 | Outpatient (CLI) | payer OTHER, MEDICARE ==
[2017-10-13 17:12] LABS: HEMATOCRIT 24.5 % (42-52); HEMOGLOBIN 7.7 g/dL (14.0-18.0); MEAN CELL VOLUME 86.6 fL (80-100); MEAN CORPUSCULAR HEMOGLOBIN 27.2 pg (25-34); MEAN CORPUSCULAR HGB CONC 31.4 g/dl (32-36); MEAN PLATELET VOLUME 10.4 fL (7.4-10.4); PLATELET COUNT 310 K/uL (130-400); RED CELL DISTRIBUTION WIDTH CV 20.9 % (11.5-14.5); WHITE BLOOD COUNT 9.62 K/uL (4.8-10.8)
== END | disposition home or self-care (01) ==
LOC: C.LABBFT 13:34
PROVIDERS: ATTEND Internal Medicine Nephrology
DX: D64.9 Anemia, unspecified (principal)

== ENCOUNTER 2018-09-07 15:38 | Inpatient (IN) ==
[2018-09-07] MEDS ORDERED: PHYTONADIONE 10 MG in SODIUM CHLORIDE 0.9% 50 ML IV ONE (15:49)
[2018-09-07] MEDS ORDERED: SODIUM CHLORIDE 0.9% 250 ML IV PRN ×2 (15:49→21:26)
[2018-09-07] MEDS ORDERED: SODIUM CHLORIDE 0.9% 500 ML IV SCH (16:00)
--- NOTE | 2018-09-07 17:33 | Emergency Department Note ---
Entered by Opal Rodas acting as a scribe for Susan Rios MD History of Present Illness General Chief complaint: Abnormal Labs/Diagnostic Testing Stated complaint: ABNORMAL BLOOD WORK Time Seen by Provider: 09/07/18 15:45 Source: patient History of Present Illness Provider complaint: doctor referral Onset (ago): hour(s) (today) Location: left and right Pain Consistency: + constant Quality: + other (abnormal labs) Associated symptoms: no chest pain and no shortness of breath The patient is a 68 year old male who presents to the Emergency Department with complaints of a doctor referral today. He states that his hemoglobin was 5.4 and his INR was greater than 10. The patient states that he had this blood work done as he had a nosebleed this weekend that lasted for over 6 hours. Per family, the patient also has wounds on his legs that bleed every time his dressing is changed. The patient states that he has been having normal bowel movements. He states that he has had a blood transfusion in the past. The patient denies having chest pain and shortness of breath. The patient reports a history of a spinal injury and is a paraplegic. He also reports a history of diabetes and CKD. He states that he is on Coumadin for a history of DVTs. Home Medications Home Medications Medication Instructions Recorded Confirmed Type citalopram 40 mg tablet 40 mg PO DAILY tab 07/26/18 09/07/18 History collagenase clostridium 1 applic TOP DAILY 30 Days #90 gm 07/26/18 09/07/18 Rx histolyticum 250 unit/gram topical ointment darbepoetin lupe 60 mcg/mL in 60 mcg SUBCUT .q 3 months ml 07/26/18 09/07/18 History polysorbate injection ferrous gluconate 240 mg (27 mg 240 mg PO DAILY tab 07/26/18 09/07/18 History iron) tablet insulin detemir (U- 100) 100 10 units SQ QAM ml 07/26/18 09/07/18 History unit/mL subcutaneous solution insulin detemir (U- 100) 100 25 units SQ QPM 07/26/18 09/07/18 History unit/mL subcutaneous solution lactobacillus combination no.8 3 3,000 mmu cells PO DAILY 07/26/18 09/07/18 History billion cell capsule levothyroxine 50 mcg capsule 50 mcg PO DAILY 07/26/18 09/07/18 History multivitamin capsule 1 cap PO DAILY 07/26/18 09/07/18 History sodium bicarbonate 650 mg tablet 650 mg PO QID tab 07/26/18 09/07/18 History warfarin 6 mg tablet 3 mg PO DAILY 07/26/18 09/07/18 History miscellaneous medical supply misc #1 ea 08/03/18 08/03/18 Rx miscellaneous medical supply misc #1 ea 08/03/18 08/03/18 Rx doxycycline hyclate 100 mg capsule 100 mg PO BID 08/08/18 09/07/18 History levofloxacin 500 mg tablet 500 mg PO .qod tab 08/08/18 09/07/18 History Allergies Allergy/AdvReac Type Severity Reaction Status Date / Time No Known Allergies Allergy Unverified 08/12/18 08:33 Past Med/Surg History Medical History Acute complete quadriplegia (Chronic) Chronic kidney disease (Chronic) Diabetes (Chronic) H/O deep venous thrombosis (Chronic) H/O renal calculi (Chronic) Hypothyroidism (Chronic) History of stent insertion of renal artery (Resolved) Surgical History H/O Spinal surgery (Resolved) S/P appendectomy (Resolved) Social History Preferred Language: [place] Communication Ability: Effective Visual Impairment: No Limitations Hearing Ability: Normal 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 and A total of 10 systems reviewed and were otherwise negative Physical Exam Vital Signs Vital Signs - 24 hr 09/07/18 15:42 09/07/18 16:51 09/07/18 17:00 Temperature 36.5 C Temperature Source Oral Sepsis Recent Fever Within 48 Hours No Sepsis New/Unexplained Change in Mental Status No Sepsis Action Taken by Nursing No Action Required Pulse Rate 92 H 85 Pulse Rate [Apical] 82 Pulse Rhythm Regular Pulse Strength Normal Respiratory Rate 20 22 21 Respiratory Effort / Characteristics Non-Labored Spontaneous Respiratory Depth Normal Respiratory Pattern Agonal Blood Pressure 117/70 122/69 Blood Pressure [Left Arm] 141/86 H Blood Pressure Mean 85 86 Blood Pressure Mean [Left Arm] 104 Blood Pressure Position Sitting Pulse Oximetry 97 100 100 Oxygen Delivery Method Room Air Room Air Room Air 09/07/18 17:30 09/07/18 18:00 09/07/18 18:30 Temperature Temperature Source Sepsis Recent Fever Within 48 Hours Sepsis New/Unexplained Change in Mental Status Sepsis Action Taken by Nursing Pulse Rate 78 86 83 Pulse Rate [Apical] Pulse Rhythm Pulse Strength Respiratory Rate 17 22 19 Respiratory Effort / Characteristics Respiratory Depth Respiratory Pattern Blood Pressure 131/65 123/66 116/67 Blood Pressure [Left Arm] Blood Pressure Mean 87 85 83 Blood Pressure Mean [Left Arm] Blood Pressure Position Pulse Oximetry Oxygen Delivery Method Vital signs reviewed. General: Chronically ill-appearing male, in no significant distress. HEENT: No scleral icterus, pale conjunctiva, PERRLA, neck supple. Atraumatic. Cardiovascular: Regular rate and rhythm, no extra sounds. Pulmonary: Clear to auscultation bilaterally, normal work of breathing. Abdomen: Soft, nontender, nondistended, positive bowel sounds. Musculoskeletal: Atraumatic. Atrophy of the bilateral lower extremities with carito ssings in place over the distal legs bilaterally. Neurologic: Patient awake alert and oriented, he answers questions appropriately. He follows commands. He has limited strength in the bilateral upper extremities and no strength in the bilateral lower extremities. Skin: Warm, dry, no rash Rectal: Guaiac positive melanotic stool. Normal mucosa. Course 1555: The patient was evaluated by Dr. Sandoval-Resident. She consented the patient for blood. 1613: The patient was evaluated in room B10. A history and physical were performed. The patient verbalized agreement and understanding of the treatment plan. 1658: Dr. Sandoval discussed the patient's case with Dr. Paul Holland who will evaluate the patient for further management. Reevaluation(s) Reevaluation #1: Dr. Paul Holland Time: 16:58 Administered Medications Citalopram Hydrobromide (Celexa) 40 mg PO DAILY [facility] Stop: 10/08/18 08:59 Last Admin: 09/08/18 08:45 Dose: 40 mg Documented by: [id number] Insulin Aspart (Novolog Flexpen) 0 units SC ACHS [facility] Stop: 10/07/18 20:59 Last Admin: 09/08/18 08:43 Dose: 1 units Documented by: [id number] Cosigned by: [id number] Admin: 09/07/18 21:32 Dose: 2 units Documented by: [id number] Cosigned by: [id number] Lactobacillus Acidophilus (Floranex) 1 tab PO DAILY [facility] Stop: 10/08/18 08:59 Last Admin: 09/08/18 08:45 Dose: 1 tab Documented by: [id number] Levothyroxine Sodium (Synthroid) 50 mcg PO DAILYBB [facility] Stop: 10/08/18 06:29 Last Admin: 09/08/18 05:45 Dose: 50 mcg Documented by: [id number] Pantoprazole Sodium (Protonix) 40 mg PO QAM [facility] Stop: 10/07/18 20:23 Last Admin: 09/08/18 08:45 Dose: 40 mg Documented by: [id number] Admin: 09/07/18 21:30 Dose: 40 mg Documented by: [id number] Polysaccharide Iron Complex (Niferex-150 W/Vit C Cap) 150 mg PO DAILY@0800 [facility] Stop: 10/08/18 07:59 Last Admin: 09/08/18 08:44 Dose: 150 mg Documented by: [id number] Sodium Bicarbonate (Sodium Bicarbonate) 650 mg PO QID [facility] Stop: 10/07/18 20:59 Last Admin: 09/08/18 08:45 Dose: 650 mg Documented by: [id number] Admin: 09/07/18 21:33 Dose: 650 mg Documented by: [id number] Discontinued Medications Acetaminophen (Tylenol) Confirm Administered Dose 650 mg .ROUTE .STK-MED ONE Stop: 09/07/18 22:35 Last Admin: 09/07/18 22:36 Dose: 650 mg Documented by: [id number] Doxycycline Hyclate (Vibramycin) 100 mg PO BID [facility] Stop: 09/17/18 20:59 Last Admin: 09/08/18 08:46 Dose: 100 mg Documented by: [id number] Admin: 09/07/18 21:33 Dose: 100 mg Documented by: [id number] Phytonadione 10 mg/ Sodium (Chloride) 51 mls @ 102 mls/hr IV ONE ONE Stop: 09/07/18 16:18 Last Infusion: 09/07/18 17:25 Dose: 0 mls/hr Documented by: [id number] Admin: 09/07/18 16:55 Dose: 102 mls/hr Documented by: [id number] Sodium Chloride (Nss) 500 mls @ 999 mls/hr IV .Q31M [facility] Stop: 09/07/18 16:30 Last Infusion: 09/07/18 17:26 Dose: 0 mls/hr Documented by: [id number] Admin: 09/07/18 16:55 Dose: 999 mls/hr Documented by: [id number] Medical Decision Making Differential Diagnosis Differential diagnosis: Etiologies such as epistaxis, supratherapeutic INR, esophagitis, variceal bleed, Boerhaaves, Abiquiu-Huang tear, gastritis, peptic ulcer disease, AVM, inflammatory bowel disease, ischemia, diverticulosis, colitis, malignancy, coagulopathy, thrombocytopenia, fissure, hemorrhoid, epistaxis , as well as others were entertained. Medical Records Attestation: I reviewed the patient's medical records. Home Medications Current Medication List: was personally reviewed by me Laboratory Data Attestation: I reviewed the patient's lab results. Result diagrams: 09/08/18 09:02 09/08/18 07:36 Lab Results 09/07/18 09/07/18 Range/Units 16:34 18:05 Urine Color Yellow Urine Appearance Cloudy A (Clear) Urine pH 6.0 (4.5-7.5) Ur Specific [place] 1.017 (1.000-1.030) Urine Protein Trace H (Negative) Urine Glucose (UA) 2+ H (Negative) Urine Ketones Negative (Negative) Urine Blood 2+ H (Negative) Urine Nitrite Positive A (Negative) Urine Bilirubin Negative (Negative) Urine Urobilinogen Negative (Negative) Ur Leukocyte Esterase 3+ H (Negative) Urine WBC (Auto) >30 H (0-5) /hpf Urine RBC (Auto) 5-10 H (0-4) /hpf U Hyaline Cast (Auto) 10-30 H (0-5) /lpf U Epithel Cells (Auto) 0-5 (0-5) /lpf Urine Bacteria (Auto) 4+ H (Negative) Blood Type A Positive Antibody Screen NEGATIVE Crossmatch See Detail ECG Data Attestation: I personally reviewed and interpreted this ECG as follows: Indication: other (abnormal labs) Rate (beats per minute): 90 Rhythm: sinus rhythm Findings: + other (low voltage, previous inferior infarct, likely previous anterior infarct) and + left axis deviation; no PAC, no PVC, no ST depression, no ST elevation, no acute ischemic change and no ectopy Blood Pressure Blood Pressure Findings: Normal blood pressure MDM Narrative This patient was evaluated and appeared to be in no significant distress. IV access was obtained and laboratory work was drawn. Patient's laboratory results were reviewed from the outpatient setting. It appears that he has an INR greater than 10 as well as significant anemia. He did have a prolonged epistaxis episode several days ago. He is guaiac positive from the rectum today. It is difficult to ascertain if this is posterior oropharyngeal blood that he has swallowed or if this is a GI bleed. Patient was given vitamin K 10 mg IV and 2 units PRBCs to be transfused. Patient is aware of the findings and plan. He will be evaluated by the hospitalist service for further management. Impression & Plan Supratherapeutic INR, Anemia, Severe epistaxis, Stool guaiac positive Critical Care Time Critical Care Time: Yes Total Critical Care Time: 35 I have personally spent 35 minutes of critical care time in the direct management of this patient. This includes bedside care, interpretation of diagnostic studies, and testing, discussion with consultants, patient, and family members, and other required patient management activities. This 35 minutes is in excess of all separately billable procedures. Discharge Plan Visit Data *Final* Discharge Date/Time: 09/07/18 20:06 Chief Complaint: Abnormal Labs/Diagnostic Testing Stated Complaint: ABNORMAL BLOOD WORK ED Provider: Susan Rios ED Midlevel Provider: Mike Sandoval Discharge Problem: Supratherapeutic INR, Anemia, Severe epistaxis, Stool guaiac positive Patient Disposition: Admitted As Inpatient Discharge Instructions Interventions: ED Discharge Assessment Last Done: 09/07/18 20:06 Discharge Problem: Anemia Qualifiers: Anemia type: unspecified type Qualified Code(s): D64.9 - Anemia, unspecified The scribe's documentation has been prepared under my direction and personally reviewed by me in its entirety. I confirm that the note above accurately reflects all work, treatment, procedures, and medical decision making performed by me.
--- NOTE | 2018-09-07 17:39 | Emergency Department Note ---
ED Visit Note I saw and assisted in the care of this patient with Dr. Rios. Please see her note for further details. . Resident Activity Tracking Resident Involvement: Resident Care Provided Care Provided: Adult ED : Anemia Qualifiers: Anemia type: unspecified type Qualified Code(s): D64.9 - Anemia, unspecified
--- NOTE | 2018-09-07 18:51 | History & Physical Report ---
Date of Service September 07, 2018 Assessment & Plan (1) Severe epistaxis: Luis is a 68-year-old male with a past medical history of paraplegia, type 2 diabetes mellitus on insulin, diabetic foot ulcers, chronic kidney disease, left DVT, and autonomic dysreflexia who presents to the hospital with epistaxis and was found to have a hemoglobin of 5.4 with a supratherapeutic INR of 10.5. Epistaxis 2/2 supratherapeutic INR INR 10.5 and admission. Recently started Levaquin as below for grade 2 ulcer which likely contributed to rise in INR. S/P 2 units packed red blood cells. 1 unit on hold. Hemoglobin 5.4 from a baseline of approximately 9 Asymptomatic, hemodynamically stable No active bleed at time of visit, plaque adherent to Hesselbach's plexus noted Finish white blood cell transfusion then IV FM with D5/LR 100 cc/h Occult stool positive, may be due to swallowing blood (no history of ulcer/GI bleed) GI consulted, continue to follow and consult per evaluation by primary team ID consulted for antibiotic evaluation given that Levaquin likely increased his INR. His wound cultures showed MSSA with Pseudomonas, Levaquin effect on INR is related to gut caio disruption so antibiotics may still elevated INR. Levaquin held pending further evaluation by ID. Chronic anemia, normocytic Epistaxis management as above Continue iron polysaccharide tomorrow evening, held temporarily Normocytic, although with a high INR. Consider B12/folate levels Type II DM Glucose checks AC/at bedtime Insulin SSI BMP daily Pressure ulcers, diabetic toe ulcer Clean, well-dressed Routine wound care Continue doxycycline twice daily, Levaquin held. Antibiotic adjustment per ID recommendations, consulted as above. CKD Creatinine elevated from baseline of approximately 2.4-2.7 Renally adjust medications as appropriate BMP daily Hypothyroidism Synthroid 50 mcg Depression Continue citalopram 40 mg daily Paraplegia Chronic, At risk for autonomic dysreflexia, which he has developed once before. No signs of dysreflexia at time of admission. CODE STATUS: DNR/DNI DVT prophylaxis: Pharmacologic prophylaxis contraindicated in the setting of bleeding with supratherapeutic INR. Mechanical prophylaxis contraindicated in the setting of known DVT and pressure ulcers. Diet: N.p.o. plus meds. IVF M D5/LR 100 cc/h (2) Pressure ulcer of left leg, stage 2: (3) Pressure ulcer of both heels, unstageable: (4) Pressure ulcer of right leg, stage 2: (5) Supratherapeutic INR: (6) Anemia: (7) Stool guaiac positive: (8) On anticoagulant therapy: (9) Diabetic ulcer of right great toe: History of Present Illness Chief Complaint: Nosebleed Primary Care Provider: Luis Enrique Weinstein MD Luis is a 68-year-old male with a past medical history of paraplegia, type 2 diabetes mellitus on insulin, diabetic foot ulcers, chronic kidney disease, left DVT, and autonomic dysreflexia who presents to the hospital with epistaxis and was found to have a hemoglobin of 5.4 with a supratherapeutic INR of 10.5. Luis is seen at the bedside with his family. They report that his nosebleed began around 7 PM Wednesday night and was going down the back of his throat. Luis is paraplegic and lays on his back in bed, the nosebleed was going to his throat but he had minimal drainage through his nose. When he was rolled over to his side his family noted that he would cough up some blood and have some anterior epistaxis. He is no proceed continued intermittently until time of admission. He reports he can feel it going down the back of his throat, but cannot cough well due to his paraplegia. Luis denies any lightheadedness, dizziness, chest pain, chest pressure, shortness of breath, nausea, vomiting (cannot vomited baseline), diarrhea, constipation, abdominal pain, or headache. Reports he has a history of type 2 diabetes mellitus on insulin detemir 25 units every afternoon and 10 units every morning, he no longer take short acting insulin. He has bilateral lower extremity poorly healing ulcers for which she is seeing Dr. Mchugh. He has been placed on daily doxycycline 100 mg twice a day and every other day levofloxacin for these ulcers. They continue to heal very slowly, evaluation of his vasculature has showed decreased but present flow. His ulcers were cultured and show MSSA with Pseudomonas. He endorses intermittent darker bowel movements but without blood or black appearance. He had an occult positive test on admission to the ED. He reports he was evaluated for bleeding 1 year ago in the emergency department at the same time that he had a kidney stone, but denies any endoscopy procedure despite receiving a unit of blood. He reports that one year ago he had kidney stone removal with stent placement, and developed autonomic dysreflexia due to the stones. He DVT in his left leg was noted about 1 year ago and he has been placed on Coumadin. Provoking factor was unknown. He has a history of paraplegia secondary to a fall from a roof in 2016. He has no sensation from T4 inferiorly. He has limited use of his arms bilaterally and intact sensation above T4. No sensation or strength in his feet/legs. Surgical history: Cystoscopy with ureteral stent placement. Appendectomy. Medications: Citalopram, doxycycline, ferrous gluconate, insulin detemir, levofloxacin, warfarin, Synthroid. PMHx: As above Family history: Endorses primary biliary cirrhosis in his mother. Denies other family history including heart disease, cancer, stroke, bleeding disorder, cancer, hypertension, and diabetes. Social: He lives in [place] with his . No tobacco use. No alcohol use. No recreational drug use. CODE STATUS: DNR/DNI Allergies Allergy/AdvReac Type Severity Reaction Status Date / Time No Known Allergies Allergy Unverified 08/12/18 08:33 Home Medications Home Medications Medication Instructions Recorded Confirmed Type citalopram 40 mg tablet 40 mg PO DAILY tab 07/26/18 09/07/18 History collagenase clostridium 1 applic TOP DAILY 30 Days #90 gm 07/26/18 09/07/18 Rx histolyticum 250 unit/gram topical ointment darbepoetin lupe 60 mcg/mL in 60 mcg SUBCUT .q 3 months ml 07/26/18 09/07/18 History polysorbate injection ferrous gluconate 240 mg (27 mg 240 mg PO DAILY tab 07/26/18 09/07/18 History iron) tablet insulin detemir (U- 100) 100 10 units SQ QAM ml 07/26/18 09/07/18 History unit/mL subcutaneous solution insulin detemir (U- 100) 100 25 units SQ QPM 07/26/18 09/07/18 History unit/mL subcutaneous solution lactobacillus combination no.8 3 3,000 mmu cells PO DAILY 07/26/18 09/07/18 History billion cell capsule levothyroxine 50 mcg capsule 50 mcg PO DAILY 07/26/18 09/07/18 History multivitamin capsule 1 cap PO DAILY 07/26/18 09/07/18 History sodium bicarbonate 650 mg tablet 650 mg PO QID tab 07/26/18 09/07/18 History warfarin 6 mg tablet 3 mg PO DAILY 07/26/18 09/07/18 History miscellaneous medical supply misc #1 ea 08/03/18 08/03/18 Rx miscellaneous medical supply misc #1 ea 08/03/18 08/03/18 Rx doxycycline hyclate 100 mg capsule 100 mg PO BID 08/08/18 09/07/18 History levofloxacin 500 mg tablet 500 mg PO .qod tab 08/08/18 09/07/18 History Past Med/Surg History Medical History Acute complete quadriplegia (Chronic) Chronic kidney disease (Chronic) Diabetes (Chronic) H/O deep venous thrombosis (Chronic) H/O renal calculi (Chronic) Hypothyroidism (Chronic) History of stent insertion of renal artery (Resolved) Surgical History H/O Spinal surgery (Resolved) S/P appendectomy (Resolved) Social History Preferred Language: Maltese Communication Ability: Effective Visual Impairment: No Limitations Hearing Ability: Normal Fourth Mate Required: No Beliefs That Will Affect Care: None marital status: Current Living Situation: Spouse current occupational status: retired Other Information That Helps Us Care for You: No Feels Safe at Home: Yes Safety Concerns: Feels Safe At This Time Smoking Status: Never smoker Hx Alcohol Use: No Hx Substance Use: No Review of Systems Review of Systems: 10 point review of systems was performed and was negative except as noted in HPI Physical Exam Physical Exam: General: A&Ox3. NAD. Cooperative. Lying in bed. Answers questions appropriately. HEENT: Atraumatic, normocephalic. No facial asymmetry. Sensation intact in all distributions. Facial strength intact. Mucous membranes pale, pallor present. Pupils equal and reactive to light and accommodation. Scab adherent to Hesselbach's plexus bilaterally. No active bleed/epistaxis at time of visit. No signs of deep posterior bleed. Posterior pharynx without erythema, blood, lesions. Pulm: CTAB A&P. -wheezes, -rales, -rhonchi. Symmetrical chest rise. No increase work of breathing. No respiratory distress. Cardiac: RRR, -mrg. Radial pulses intact and symmetrical. Abdominal: Nontender, nondistended, soft. BS present. Extremities: Lower extremities with gauze dressing covering ulcerative wounds, C/D/I without saturation or drainage. No sensation bilaterally in distal feet. 1+ edema to the midcalf. Posterior tibial pulses intact bilaterally. Moves upper arms equally, some limitation to finger flexion. Results & Data Vital Signs (Past 12 Hours) Vital Signs Temp Pulse Pulse Resp BP BP Pulse Ox 09/07/18 18:40 36.9 C 94 H 19 111/63 99 09/07/18 17:30 78 17 131/65 09/07/18 17:00 85 21 122/69 100 09/07/18 16:51 82 22 141/86 H 100 09/07/18 15:42 36.5 C 92 H 20 117/70 97 Supervising Physician Co-Signing Physician Notes Patient seen and examined, chart reviewed, case discussed with Dr. Workman and I agree with his assessment and plan as documented above. Briefly, patient is a 68yo C male with paraplegia presenting with symptomatic anemia after epistaxis and supratherapeutic INR. Patient has been on Coumadin x 1 year for LE DVT. He reports that it has been fairly stable dose for the last 6-7 months. He was recently started on Doxy and Levaquin for bilateral LE wounds. Patient with severe epistaxis, Hg of 5.4, INR > 10.4. He was administered Vitamin K in the ER and is presently being transfused with PRBCs. On exam he is afebrile, HD stable, nontoxic in appearance Skin: no rash HEENT: MMM, no lesion noted in nares, no bleeding in posterior pharynx Heart: +BS, soft, NT/ND Lungs: CTA Abd: +BS, soft, NT/ND Ext: dressings in place Labs and images reviewed Assessment/Plan: -?if quinolone + coumadin contributed to supratherapeutic INR and subsequent bleeding. Patient HD stable, does not appear to be actively bleeding. Melena most likely secondary to swallowing of blood rather than true GI bleed, doubt further workup is needed, however, will defer to GI. Hold Coumadin and monitor daily INR. Will discuss with ID if antibiotics can be changed - Psuedomonas and MSSA from LE cultures -Remainder of plan as above PG Care Time/CCT Total # of Minutes Spent Total Time Spent with Patient: Total time spent is greater than 50% in coordination of care (as documented) at patient's floor/unit and/or counseling patient: (1) Anemia Anemia type: unspecified type Qualified Code(s): D64.9 - Anemia, unspecified
[2018-09-07 19:03] LABS: Appearance Urine Cloudy (Clear); Bacteria Urine Automated 4+ (Negative); Bilirubin Urine Negative (Negative); Blood Urine 2+ (Negative); Color Urine Yellow; Epithelial Cell Urine Auto 0-5 /lpf (0-5); Glucose Urine UA 2+ (Negative); Ketones Urine Negative (Negative); Leukocyte Esterase Urine 3+ (Negative); Nitrite Urine Positive (Negative); Protein Urine Trace (Negative); Specific Gravity Urine 1.017 (1.000-1.030); Urobilinogen Urine Negative (Negative); WBC Urine Automated >30 /hpf (0-5)
[2018-09-07] MEDS ORDERED: DEXTROSE 50% 50 ML SYRINGE IV PRN (20:24)
[2018-09-07] MEDS ORDERED: GLUCOSE 10 TABS/TUBE PO PRN (20:24)
[2018-09-07] MEDS ORDERED: CARBOHYDRATES FOR HYPOGLYCEMIA PO PRN (20:24)
[2018-09-07] MEDS ORDERED: GLUCOSE 40% GEL 15 GM TUBE PO PRN (20:24)
[2018-09-07] MEDS ORDERED: GLUCAGON FOR INJ 1 MG VIAL SQ PRN (20:24)
[2018-09-07] MEDS: PANTOprazole 40 MG TAB PO SCH (21:30)
[2018-09-07] MEDS: INSULIN ASPART 100 UNITS/ML 3 ML PEN SC SCH (21:32)
[2018-09-07] MEDS: SODIUM BICARBONATE 650 MG TAB PO SCH (21:33)
[2018-09-07] MEDS: DOXYCYCLINE HYCLATE 100 MG CAP PO SCH (21:33)
[2018-09-07] MEDS ORDERED: ACETAMINOPHEN 325 MG TAB PO PRN (22:06)
[2018-09-07] MEDS ORDERED: ACETAMINOPHEN 325 MG TAB ONE (22:34)
[2018-09-08] MEDS: LEVOTHYROXINE SODIUM 50 MCG TABLET PO SCH (05:45)
[2018-09-08] MEDS: INSULIN ASPART 100 UNITS/ML 3 ML PEN SC SCH ×4 (08:43→21:06)
[2018-09-08] MEDS: IRON POLYSACCHARIDE COMPLEX 150 MG CAPSULE PO SCH (08:44)
[2018-09-08] MEDS: LACTOBACILLUS ACIDOPHILUS (FLORANEX) TAB PO SCH (08:45)
[2018-09-08] MEDS: PANTOprazole 40 MG TAB PO SCH (08:45)
[2018-09-08] MEDS: SODIUM BICARBONATE 650 MG TAB PO SCH ×4 (08:45→21:07)
[2018-09-08] MEDS: CITALOPRAM 40 MG TAB PO SCH (08:45)
[2018-09-08] MEDS: DOXYCYCLINE HYCLATE 100 MG CAP PO SCH (08:46)
[2018-09-08 09:03] LABS: BUN Creatinine Ratio 23.4 (10-20); Calcium 8.4 mg/dl (8.5-10.1); Creatinine Clr Calc Pharmacy 32.8 ml/min; Est GFR (African American) 28.3; Est GFR (Non-African American) 24.4; Potassium 3.8 mmol/L (3.5-5.1)
[2018-09-08 09:13] LABS: Basophils # (auto) 0.01 K/uL (0-0.2); Basophils % (auto) 0.1 %; Eosinophils # (auto) 0.71 K/uL (0-0.5); Eosinophils % (auto) 7.6 %; Hematocrit (blood only) 23.2 % (42-52); Hemoglobin 7.6 g/dL (14.0-18.0); Immature Granulocytes # (auto) 0.05 K/uL (0.00-0.02); Immature Granulocytes % (auto) 0.5 %; Lymphocytes # (auto) 1.84 K/uL (1.2-3.4); Lymphocytes % (auto) 19.7 %; Mean Corpuscular Volume 81.1 fL (80-100); Mean Platelet Volume 10.4 fL (7.4-10.4); Monocytes # (auto) 0.75 K/uL (0.11-0.59); Neutrophils # (auto) 5.97 K/uL (1.4-6.5); Neutrophils % (auto) 64.1 %; Platelet Count 229 K/uL (130-400); RDW Coefficient of Variation 19.2 % (11.5-14.5); RDW Standard Deviation 56.8 fL (36.4-46.3); Red Blood Count 2.86 M/uL (4.7-6.1); White Blood Count 9.33 K/uL (4.8-10.8)
[2018-09-08 09:23] LABS: Mean Corpuscular Hgb Conc 32.8 g/dL (32-36)
--- NOTE | 2018-09-08 09:24 | Infectious Disease Consult ---
Date of Consultation September 08, 2018 Assessment & Plan (1) Pressure ulcer of left leg, stage 2: will hold all abx at this point, was planning to d/c at next wound center visit. will follow in wound center post d/c from hospital nad follow off of abx in the interim. hopefully INR will improve with disconitnuation of levaquin. all other abx would need to be IV - will reassess in wound center. (2) Pressure ulcer of right leg, stage 2: History of Present Illness Attending Physician: Camelia Huertas MD pt admitted with nosebleed. has been on levo every other day and doxy for infected heel ulcer growing MSSA and pseudomonas, has been on abx for 4 weeks. was to follow in wound center this last Wednesday to discuss stopping abx but was unable to make appt. He states his ulcerations are much improved. no f/c. tolerating abx. no abd pain, no n/v/d. bleeding stopped, hbg was 5.4 in ER, received 2 units prbcs. feeling much better today. no complaints. He is also on coumadin and INR in ER was >10. He states he was having home health check INR every week or 2 weeks and INR was theraputic but new home nursing now involved in his care and he states he has not had INR checked in some time, I was unaware that INR was not being regularly followed. He remains on doxy but levaquin held due to DDI, ID consulted for alternatie abx agents. Allergies Allergy/AdvReac Type Severity Reaction Status Date / Time No Known Allergies Allergy Unverified 08/12/18 08:33 Home Medications Home Medications Medication Instructions Recorded Confirmed Type citalopram 40 mg tablet 40 mg PO DAILY tab 07/26/18 09/07/18 History collagenase clostridium 1 applic TOP DAILY 30 Days #90 gm 07/26/18 09/07/18 Rx histolyticum 250 unit/gram topical ointment darbepoetin lupe 60 mcg/mL in 60 mcg SUBCUT .q 3 months ml 07/26/18 09/07/18 History polysorbate injection ferrous gluconate 240 mg (27 mg 240 mg PO DAILY tab 07/26/18 09/07/18 History iron) tablet insulin detemir (U- 100) 100 10 units SQ QAM ml 07/26/18 09/07/18 History unit/mL subcutaneous solution insulin detemir (U- 100) 100 25 units SQ QPM 07/26/18 09/07/18 History unit/mL subcutaneous solution lactobacillus combination no.8 3 3,000 mmu cells PO DAILY 07/26/18 09/07/18 History billion cell capsule levothyroxine 50 mcg capsule 50 mcg PO DAILY 07/26/18 09/07/18 History multivitamin capsule 1 cap PO DAILY 07/26/18 09/07/18 History sodium bicarbonate 650 mg tablet 650 mg PO QID tab 07/26/18 09/07/18 History warfarin 6 mg tablet 3 mg PO DAILY 07/26/18 09/07/18 History miscellaneous medical supply misc #1 ea 08/03/18 08/03/18 Rx miscellaneous medical supply misc #1 ea 08/03/18 08/03/18 Rx doxycycline hyclate 100 mg capsule 100 mg PO BID 08/08/18 09/07/18 History levofloxacin 500 mg tablet 500 mg PO .qod tab 08/08/18 09/07/18 History Patient History Medical History Acute complete quadriplegia (Chronic) Chronic kidney disease (Chronic) Diabetes (Chronic) H/O deep venous thrombosis (Chronic) H/O renal calculi (Chronic) Hypothyroidism (Chronic) History of stent insertion of renal artery (Resolved) Surgical History H/O Spinal surgery (Resolved) S/P appendectomy (Resolved) Social History Preferred Language: Yoruba Communication Ability: Effective Visual Impairment: No Limitations Hearing Ability: Normal 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: No Beliefs That Will Affect Care: None marital status: Current Living Situation: Spouse current occupational status: retired Other Information That Helps Us Care for You: No Feels Safe at Home: Yes Safety Concerns: Feels Safe At This Time Smoking Status: Never smoker Hx Alcohol Use: No Hx Substance Use: No Review of Systems Review of Systems: All systems reviewed & are unremarkable except as noted in HPI & below Physical Exam Constitutional: WD/WN, vitals as above Eyes: PERRL, conjunctivae normal, anicteric sclerae ENMT: external ear and nose normal, oropharynx normal Neck: normal visual inspection Respiratory: normal respiratory effort, lungs clear to auscultation Cardiovascular: RRR, no murmur, no edema Gastrointestinal (Abdomen): normal bowel sounds, soft, nontender, no hepatosplenomegaly Musculoskeletal: Head/Neck/Chest: normocephalic and head atraumatic Skin: no rashes, warm and dry Psychiatric: A+Ox3, euthymic affect Results & Data Vital Signs (Past 12 Hours) Vital Signs Temp Pulse Pulse Resp BP BP Pulse Ox 09/08/18 07:36 36.9 C 74 18 122/71 96 09/08/18 00:02 37 C 70 20 129/71 98 09/07/18 23:05 37.1 C 83 20 118/69 99 09/07/18 22:17 36.6 C 81 16 120/69 98 09/07/18 22:02 36.9 C 82 18 129/71 99 09/07/18 21:45 37.3 C 91 H 18 127/72 99
[2018-09-08 09:27] LABS: INR 1.4 (0.9-1.1); Prothrombin Time 13.8 Seconds (9.0-12.0)
[2018-09-08 09:46] LABS: Anisocytosis Present; Microcytosis Present
[2018-09-08] MEDS ORDERED: SODIUM CHLORIDE 0.9% 250 ML IV PRN (10:26)
--- NOTE | 2018-09-08 19:21 | Hospitalist Progress Note ---
Date of Service September 08, 2018 Assessment & Plan (1) Severe epistaxis: Luis is a 68-year-old male with a past medical history of paraplegia, type 2 diabetes mellitus on insulin, diabetic foot ulcers, chronic kidney disease, left DVT, and autonomic dysreflexia who presents to the hospital with epistaxis and was found to have a hemoglobin of 5.4 with a supratherapeutic INR of 10.5. Epistaxis 2/2 supratherapeutic INR INR 10.5 on admission. Recently started Levaquin as below for grade 2 ulcer which likely contributed to rise in INR. Hgb 5.4 on admission, now S/P 2 units packed red blood cells. Hgb was only 7.6 this AM--> transfused 1 more unit and now hgb 8.6 -no further epistaxis (2) Anemia: Acute blood loss anemia in setting of anemia of CKD Hgb 5.4 on arrival secondary to epistaxis as above now s/p 3 units PRBCs and improved appropriately to 8.3 Chronic anemia, normocytic Continue iron tabs-restart tomorrow -follow CBC in AM (3) Pressure ulcer of left leg, stage 2: Pressure ulcers legs, diabetic toe ulcer Clean, well-dressed Routine wound care continued appreciate ID consult--> all wounds healing nicely, will dc all further abx at this time and follow clinically (4) Pressure ulcer of both heels, unstageable: (5) Pressure ulcer of right leg, stage 2: (6) Supratherapeutic INR: Coumadin induced Coagulopathy with epistaxis Was given Vit K 10mg IV on day of admission INR now down to 1.2 -ok to restart coumadin slowly (7) Stool guaiac positive: possibly from swallowing blood as he reports none of the blood from his epistaxis came down his face, but rather all dripped into his throat and he swallowed it No GI consult necessary (8) On anticoagulant therapy: For h/o extensive RLE DVT On coumadin Did not have INR checked he reports for a month since getting new visiting RNs -will need to ensure this is being done routinely after discharge (9) Diabetic ulcer of right great toe: as above (10) Paraplegia: secondary to spinal cord injury after a fall from a ladder -continue supportive care (11) Diabetes: HgbA1C 8.4% in 07/2018 Needs improved control -continue SSI here -holding home basal insulin upon admission but will restart AM dose tomorrow (12) History of DVT (deep vein thrombosis): h/o extensive DVT RLE, on chronic coumadin which is now on hold as above (13) Autonomic dysreflexia: at risk for this but no evidence so far (14) Chronic indwelling Brown catheter: for neurogenic bladder UA abnormal but no signs/symptoms of infection Discussed with ID--> no need for treatment with abx (15) Hypothyroidism: TSH normal in 11/2017 -continue home LT4 (16) Depression: stable -continue home celexa (17) CKD (chronic kidney disease) stage 4, GFR 15-29 ml/min: 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 No further epistaxis. Denies SOARES or lightheadedness, denies CP or SOB, no abd pain. Review of Systems Review of Systems: All systems reviewed & are unremarkable except as noted in HPI & below Physical Exam Constitutional: WD/WN, vitals as above Eyes: PERRL, conjunctivae normal, anicteric sclerae ENMT: external ear and nose normal, oropharynx normal (no epistaxis) Neck: trachea midline, no thyromegaly Respiratory: normal respiratory effort, lungs clear to auscultation Cardiovascular: RRR, no murmur, no edema Gastrointestinal (Abdomen): normal bowel sounds, soft, nontender, no hepatosplenomegaly Inspection/Auscultation: + abdomen distended (mild, chronic for him) Musculoskeletal: Extremities: extremities normal to inspection; no cyanosis and no clubbing Skin: + ulcer (bilateral posterior calves and right toe but dressings not removed) Neurologic: + focal motor deficit (flaccid LEs) and awake Psychiatric: A+Ox3, euthymic affect Results & Data Vital Signs (Past 12 Hours) Vital Signs Temp Pulse Pulse Resp BP BP Pulse Ox 09/08/18 16:27 36.6 C 61 18 142/78 H 99 09/08/18 14:15 36.8 C 65 14 137/77 99 09/08/18 12:15 36.8 C 70 18 127/70 99 09/08/18 11:45 36.7 C 88 19 111/63 98 09/08/18 11:30 36.6 C 67 18 112/63 99 09/08/18 11:10 36.9 C 64 16 124/63 09/08/18 07:36 36.9 C 74 18 122/71 96 Laboratory Results 09/08/18 09/08/18 09/08/18 Range/Units 20:33 19:43 19:43 WBC 11.48 H (4.8-10.8) K/uL RBC 3.16 L (4.7-6.1) M/uL Hgb 8.6 L (14.0-18.0) g/dL Hct 26.1 L (42-52) % MCV 82.6 (80-100) fL MCH 27.2 (25-34) pg MCHC 33.0 (32-36) g/dL RDW Std Deviation 55.9 H (36.4-46.3) fL RDW Coeff of Marvin 18.8 H (11.5-14.5) % Plt Count 238 (130-400) K/uL MPV 10.0 (7.4-10.4) fL Immature Gran % (Auto) 0.8 % Neut % (Auto) 64.0 % Lymph % (Auto) 19.6 % Faulkner % (Auto) 7.8 % Eos % (Auto) 7.6 % Baso % (Auto) 0.2 % Immature Gran # (Auto) 0.09 H (0.00-0.02) K/uL Neut # (Auto) 7.36 H (1.4-6.5) K/uL Lymph # (Auto) 2.25 (1.2-3.4) K/uL Faulkner # (Auto) 0.89 H (0.11-0.59) K/uL Eos # (Auto) 0.87 H (0-0.5) K/uL Baso # (Auto) 0.02 (0-0.2) K/uL Anisocytosis Microcytosis PT 12.2 H (9.0-12.0) Seconds INR 1.2 H (0.9-1.1) Sodium (136-145) mmol/L Potassium (3.5-5.1) mmol/L Chloride (98-107) mmol/L Carbon Dioxide (21-32) mmol/L Anion Gap (3-11) BUN (7-18) mg/dl Creatinine (0.6-1.4) mg/dl Est Cr Clr Drug Dosing ml/min Est GFR ( Amer) Est GFR (Non-Af Amer) BUN/Creatinine Ratio (10-20) Glucose (70-99) mg/dl POC Glucose 161 H (70-99) Calcium (8.5-10.1) mg/dl Blood Type Antibody Screen Crossmatch 09/08/18 09/08/18 09/08/18 Range/Units 17:04 11:50 09:02 WBC (4.8-10.8) K/uL RBC (4.7-6.1) M/uL Hgb (14.0-18.0) g/dL Hct (42-52) % MCV (80-100) fL MCH (25-34) pg MCHC (32-36) g/dL RDW Std Deviation (36.4-46.3) fL RDW Coeff of Marvin (11.5-14.5) % Plt Count (130-400) K/uL MPV (7.4-10.4) fL Immature Gran % (Auto) % Neut % (Auto) % Lymph % (Auto) % Faulkner % (Auto) % Eos % (Auto) % Baso % (Auto) % Immature Gran # (Auto) (0.00-0.02) K/uL Neut # (Auto) (1.4-6.5) K/uL Lymph # (Auto) (1.2-3.4) K/uL Faulkner # (Auto) (0.11-0.59) K/uL Eos # (Auto) (0-0.5) K/uL Baso # (Auto) (0-0.2) K/uL Anisocytosis Microcytosis PT 13.8 H (9.0-12.0) Seconds INR 1.4 H (0.9-1.1) Sodium (136-145) mmol/L Potassium (3.5-5.1) mmol/L Chloride (98-107) mmol/L Carbon Dioxide (21-32) mmol/L Anion Gap (3-11) BUN (7-18) mg/dl Creatinine (0.6-1.4) mg/dl Est Cr Clr Drug Dosing ml/min Est GFR ( Amer) Est GFR (Non-Af Amer) BUN/Creatinine Ratio (10-20) Glucose (70-99) mg/dl POC Glucose 130 H 136 H (70-99) Calcium (8.5-10.1) mg/dl Blood Type Antibody Screen Crossmatch 09/08/18 09/08/18 09/08/18 Range/Units 09:02 07:36 05:56 WBC 9.33 (4.8-10.8) K/uL RBC 2.86 L (4.7-6.1) M/uL Hgb 7.6 L (14.0-18.0) g/dL Hct 23.2 L (42-52) % MCV 81.1 (80-100) fL MCH 26.6 (25-34) pg MCHC 32.8 (32-36) g/dL RDW Std Deviation 56.8 H (36.4-46.3) fL RDW Coeff of Marvin 19.2 H (11.5-14.5) % Plt Count 229 (130-400) K/uL MPV 10.4 (7.4-10.4) fL Immature Gran % (Auto) 0.5 % Neut % (Auto) 64.1 % Lymph % (Auto) 19.7 % Faulkner % (Auto) 8.0 % Eos % (Auto) 7.6 % Baso % (Auto) 0.1 % Immature Gran # (Auto) 0.05 H (0.00-0.02) K/uL Neut # (Auto) 5.97 (1.4-6.5) K/uL Lymph # (Auto) 1.84 (1.2-3.4) K/uL Faulkner # (Auto) 0.75 H (0.11-0.59) K/uL Eos # (Auto) 0.71 H (0-0.5) K/uL Baso # (Auto) 0.01 (0-0.2) K/uL Anisocytosis Present Microcytosis Present PT (9.0-12.0) Seconds INR (0.9-1.1) Sodium 138 (136-145) mmol/L Potassium 3.8 (3.5-5.1) mmol/L Chloride 109 H (98-107) mmol/L Carbon Dioxide 23 (21-32) mmol/L Anion Gap 6.0 (3-11) BUN 61 H (7-18) mg/dl Creatinine 2.60 H (0.6-1.4) mg/dl Est Cr Clr Drug Dosing 32.8 ml/min Est GFR ( Amer) 28.3 Est GFR (Non-Af Amer) 24.4 BUN/Creatinine Ratio 23.4 H (10-20) Glucose 143 H (70-99) mg/dl POC Glucose 169 H (70-99) Calcium 8.4 L (8.5-10.1) mg/dl Blood Type Antibody Screen Crossmatch 09/08/18 09/07/18 Range/Units 00:01 16:34 WBC (4.8-10.8) K/uL RBC (4.7-6.1) M/uL Hgb (14.0-18.0) g/dL Hct (42-52) % MCV (80-100) fL MCH (25-34) pg MCHC (32-36) g/dL RDW Std Deviation (36.4-46.3) fL RDW Coeff of Marvin (11.5-14.5) % Plt Count (130-400) K/uL MPV (7.4-10.4) fL Immature Gran % (Auto) % Neut % (Auto) % Lymph % (Auto) % Faulkner % (Auto) % Eos % (Auto) % Baso % (Auto) % Immature Gran # (Auto) (0.00-0.02) K/uL Neut # (Auto) (1.4-6.5) K/uL Lymph # (Auto) (1.2-3.4) K/uL Faulkner # (Auto) (0.11-0.59) K/uL Eos # (Auto) (0-0.5) K/uL Baso # (Auto) (0-0.2) K/uL Anisocytosis Microcytosis PT (9.0-12.0) Seconds INR (0.9-1.1) Sodium (136-145) mmol/L Potassium (3.5-5.1) mmol/L Chloride (98-107) mmol/L Carbon Dioxide (21-32) mmol/L Anion Gap (3-11) BUN (7-18) mg/dl Creatinine (0.6-1.4) mg/dl Est Cr Clr Drug Dosing ml/min Est GFR ( Amer) Est GFR (Non-Af Amer) BUN/Creatinine Ratio (10-20) Glucose (70-99) mg/dl POC Glucose 174 H (70-99) Calcium (8.5-10.1) mg/dl Blood Type A Positive Antibody Screen NEGATIVE Crossmatch See Detail PG Care Time/CCT Total # of Minutes Spent Total Time Spent with Patient: Total time spent is greater than 50% in co ordination of care (as documented) at patient's floor/unit and/or counseling patient: (1) Anemia Anemia type: unspecified type Qualified Code(s): D64.9 - Anemia, unspecified
[2018-09-08 19:55] LABS: Basophils # (auto) 0.02 K/uL (0-0.2); Basophils % (auto) 0.2 %; Eosinophils # (auto) 0.87 K/uL (0-0.5); Eosinophils % (auto) 7.6 %; Hematocrit (blood only) 26.1 % (42-52); Hemoglobin 8.6 g/dL (14.0-18.0); Immature Granulocytes # (auto) 0.09 K/uL (0.00-0.02); Immature Granulocytes % (auto) 0.8 %; Lymphocytes # (auto) 2.25 K/uL (1.2-3.4); Lymphocytes % (auto) 19.6 %; Mean Corpuscular Volume 82.6 fL (80-100); Monocytes # (auto) 0.89 K/uL (0.11-0.59); Monocytes % (auto) 7.8 %; Neutrophils # (auto) 7.36 K/uL (1.4-6.5); Platelet Count 238 K/uL (130-400); RDW Coefficient of Variation 18.8 % (11.5-14.5); RDW Standard Deviation 55.9 fL (36.4-46.3); Red Blood Count 3.16 M/uL (4.7-6.1); White Blood Count 11.48 K/uL (4.8-10.8)
[2018-09-08 20:04] LABS: INR 1.2 (0.9-1.1); Prothrombin Time 12.2 Seconds (9.0-12.0)
[2018-09-08] MEDS: HEPARIN SOD 5,000 UNIT/0.5 ML VIAL SQ SCH (21:06)
[2018-09-09] MEDS: LEVOTHYROXINE SODIUM 50 MCG TABLET PO SCH (06:08)
[2018-09-09 07:52] LABS: Basophils # (auto) 0.02 K/uL (0-0.2); Basophils % (auto) 0.2 %; Eosinophils # (auto) 0.77 K/uL (0-0.5); Eosinophils % (auto) 8.1 %; Hematocrit (blood only) 27.1 % (42-52); Hemoglobin 8.7 g/dL (14.0-18.0); Immature Granulocytes # (auto) 0.05 K/uL (0.00-0.02); Immature Granulocytes % (auto) 0.5 %; Lymphocytes # (auto) 1.64 K/uL (1.2-3.4); Lymphocytes % (auto) 17.2 %; Mean Corpuscular Hgb Conc 32.1 g/dL (32-36); Mean Corpuscular Volume 82.9 fL (80-100); Mean Platelet Volume 9.4 fL (7.4-10.4); Monocytes # (auto) 0.87 K/uL (0.11-0.59); Monocytes % (auto) 9.1 %; Neutrophils # (auto) 6.21 K/uL (1.4-6.5); Neutrophils % (auto) 64.9 %; Platelet Count 239 K/uL (130-400); RDW Coefficient of Variation 19.1 % (11.5-14.5); RDW Standard Deviation 57.4 fL (36.4-46.3); Red Blood Count 3.27 M/uL (4.7-6.1); White Blood Count 9.56 K/uL (4.8-10.8)
[2018-09-09 07:58] LABS: INR 1.1 (0.9-1.1); Prothrombin Time 11.4 Seconds (9.0-12.0)
[2018-09-09] MEDS: INSULIN ASPART 100 UNITS/ML 3 ML PEN SC SCH ×2 (08:04→13:46)
[2018-09-09] MEDS: CITALOPRAM 40 MG TAB PO SCH (08:06)
[2018-09-09] MEDS: LACTOBACILLUS ACIDOPHILUS (FLORANEX) TAB PO SCH (08:07)
[2018-09-09] MEDS: PANTOprazole 40 MG TAB PO SCH (08:07)
[2018-09-09] MEDS: IRON POLYSACCHARIDE COMPLEX 150 MG CAPSULE PO SCH (08:07)
[2018-09-09] MEDS: SODIUM BICARBONATE 650 MG TAB PO SCH ×2 (08:07→13:47)
[2018-09-09] MEDS: HEPARIN SOD 5,000 UNIT/0.5 ML VIAL SQ SCH (08:08)
[2018-09-09 08:17] LABS: BUN Creatinine Ratio 17.8 (10-20); Calcium 8.6 mg/dl (8.5-10.1); Est GFR (African American) 24.4; Est GFR (Non-African American) 21.1; Potassium 3.9 mmol/L (3.5-5.1)
[2018-09-09] MEDS ORDERED: FERROUS GLUCONATE 324 MG TAB PO SCH (09:00)
[2018-09-09] MEDS ORDERED: INSULIN DETEMIR FLEXPEN/FLEX TOUCH 100 UNITS/ML 3ML SC SCH (09:00)
--- NOTE | 2018-09-09 14:18 | Discharge Summary ---
Date of Service September 09, 2018 Admission HPI Per Admitting Provider Luis is a 68-year-old male with a past medical history of paraplegia, type 2 diabetes mellitus on insulin, diabetic foot ulcers, chronic kidney disease, left DVT, and autonomic dysreflexia who presents to the hospital with epistaxis and was found to have a hemoglobin of 5.4 with a supratherapeutic INR of 10.5. Luis is seen at the bedside with his family. They report that his nosebleed began around 7 PM Wednesday and was going down the back of his throat. Luis is paraplegic and lays on his back in bed, the nosebleed was going to his throat but he had minimal drainage through his nose. When he was rolled over to his side his family noted that he would cough up some blood and have some anterior epistaxis. He is no proceed continued intermittently until time of admission. He reports he can feel it going down the back of his throat, but cannot cough well due to his paraplegia. Luis denies any lightheadedness, dizziness, chest pain, chest pressure, shortness of breath, nausea, vomiting (cannot vomited baseline), diarrhea, constipation, abdominal pain, or headache. Reports he has a history of type 2 diabetes mellitus on insulin detemir 25 units every afternoon and 10 units every morning, he no longer take short acting insulin. He has bilateral lower extremity poorly healing ulcers for which she is seeing Dr. Mchugh. He has been placed on daily doxycycline 100 mg twice a day and every other day levofloxacin for these ulcers. They continue to heal very slowly, evaluation of his vasculature has showed decreased but present flow. His ulcers were cultured and show MSSA with Pseudomonas. He endorses intermittent darker bowel movements but without blood or black appearance. He had an occult positive test on admission to the ED. He reports he was evaluated for bleeding 1 year ago in the emergency department at the same time that he had a kidney stone, but denies any endoscopy procedure despite receiving a unit of blood. He reports that one year ago he had kidney stone removal with stent placement, and developed autonomic dysreflexia due to the stones. He DVT in his left leg was noted about 1 year ago and he has been placed on Coumadin. Provoking factor was unknown. He has a history of paraplegia secondary to a fall from a roof in 2016. He has no sensation from T4 inferiorly. He has limited use of his arms bilaterally and intact sensation above T4. No sensation or strength in his feet/legs. Surgical history: Cystoscopy with ureteral stent placement. Appendectomy. Medications: Citalopram, doxycycline, ferrous gluconate, insulin detemir, levofloxacin, warfarin, Synthroid. PMHx: As above Family history: Endorses primary biliary cirrhosis in his mother. Denies other family history including heart disease, cancer, stroke, bleeding disorder, cancer, hypertension, and diabetes. Social: He lives in [place] with his . No tobacco use. No alcohol use. No recreational drug use. CODE STATUS: DNR/DNI Principal Diagnosis Acute blood loss anemia, Epistaxis Discharge Exam Constitutional WD/WN, vitals as above Eyes PERRL, conjunctivae normal, anicteric sclerae ENMT external ear and nose normal, oropharynx normal (no epistaxis) Neck trachea midline, no thyromegaly Respiratory normal respiratory effort, lungs clear to auscultation Cardiovascular RRR, no murmur, no edema Gastrointestinal (Abdomen) normal bowel sounds, soft, nontender, no hepatosplenomegaly Inspection/Auscultation: + abdomen distended (mild, chronic for him) Musculoskeletal Extremities: extremities normal to inspection; no cyanosis and no clubbing Skin + ulcer (bilateral posterior calves and right toe but dressings not removed) Neurologic + focal motor deficit (flaccid LEs) and awake Psychiatric A+Ox3, euthymic affect Discharge Data Allergies Allergy/AdvReac Type Severity Reaction Status Date / Time No Known Allergies Allergy Unverified 09/12/18 16:06 Consultations 09/07/18 18:38 Consult Infectious Diseases Routine Hospital Course (1) Severe epistaxis: Luis is a 68-year-old male with a past medical history of paraplegia, type 2 diabetes mellitus on insulin, diabetic foot ulcers, chronic kidney disease, left DVT, and autonomic dysreflexia who presents to the hospital with epistaxis and was found to have a hemoglobin of 5.4 with a supratherapeutic INR of 10.5. Epistaxis 2/2 supratherapeutic INR-resolved INR 10.5 on admission. Recently started Levaquin as below for grade 2 ulcer which likely contributed to rise in INR. Hgb 5.4 on admission, now S/P 2 units packed red blood cells. Hgb was then only 7.6 --> transfused 1 more unit and now hgb 8.7 -no further epistaxis (2) Anemia: Acute blood loss anemia in setting of anemia of CKD Hgb 5.4 on arrival secondary to epistaxis as above now s/p 3 units PRBCs and improved appropriately to 8.7 Chronic anemia, normocytic Continue iron tabs -follow CBC as outpt with home RN (3) Pressure ulcer of left leg, stage 2: Pressure ulcers legs, diabetic toe ulcer Clean, well-dressed Routine wound care continued appreciate ID consult--> all wounds healing nicely, will dc all further abx at this time and follow clinically (4) Pressure ulcer of both heels, unstageable: continue wound care, pressure offloading (5) Pressure ulcer of right leg, stage 2: (6) Supratherapeutic INR: Coumadin induced Coagulopathy with epistaxis Was given Vit K 10mg IV on day of admission INR now down to 1.1 on day of dc - restarted coumadin slowly, follow INR as outpt (7) Stool guaiac positive: possibly from swallowing blood as he reports none of the blood from his epistaxis came down his face, but rather all dripped into his throat and he swallowed it No GI consult necessary (8) On anticoagulant therapy: For h/o extensive RLE DVT On coumadin Did not have INR checked he reports for a month since getting new visiting RNs -will need to ensure this is being done routinely after discharge (9) Diabetic ulcer of right great toe: as above (10) Paraplegia: secondary to spinal cord injury after a fall from a ladder -continue supportive care (11) Diabetes: HgbA1C 8.4% in 07/2018 Needs improved control -continue insulin -f/u with PCP (12) History of DVT (deep vein thrombosis): h/o extensive DVT RLE, on chronic coumadin as above (13) Autonomic dysreflexia: at risk for this but no evidence so far (14) Chronic indwelling Brown catheter: for neurogenic bladder UA abnormal but no signs/symptoms of infection Ur cx with Pseudomonas, FQ resistant--> no need for abx Discussed with ID--> no need for treatment with abx (15) Hypothyroidism: TSH normal in 11/2017 -continue home LT4 (16) Depression: stable -continue home celexa (17) CKD (chronic kidney disease) stage 4, GFR 15-29 ml/min: 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 -follow BMP -avoid nephrotoxins -renally dose meds when appropriate (18) GERD (gastroesophageal reflux disease): continue PPI (19) DVT prophylaxis: Heparin SQ provided Dispo-stable for dc to home with home health Total Time Total Time Spent Total Time Spent (In Minutes): >30 min Total Time Includes: Examination of the Patient, Discharge Planning and Medication Reconciliation Discharge Plan Discharge Items Patient Disposition: Home - Home Health Services Reason For Visit: EPISTAXIS,ANEMIA Discharge Diagnosis: Epistaxis, acute blood loss anemia Condition: Good Discharge Goals: Diagnostic testing, Improve disease control and Therapeutic intervention Activity: Resume your previous activity Exercise/Sports: As tolerated Non-emergency contact: Primary Care Provider and Clinic Office Assistant Call non-emergency contact if: you have any medication questions and your symptoms worsen Follow-up/Referrals: [facility] [facility] [Provider Group] - 09/19/18 2:00 pm (Please, follow up at [facility] on WednesdaySeptember 19 at 2:00 pm. *If you need to change this appointment, call the office at [phone].) Luis Enrique Weinstein III, MD [Primary Care Provider] - 09/20/18 11:00 am (Please, follow up at Dr. Weinstein's office with Natalia Bowens PA-C on Wednesday at 11:00 am. *If you need to change this appointment, call their office at [phone].) Diet: Carb Consistent or DM2 Addtl Provider Instructions: You were admitted for bleeding from the nose causing you severe anemia which required blood transfusion. Your INR from your Coumadin was extremely high. You were given vitamin K to reverse your INR and it was 1.1 on the day of discharge. You can restart your Coumadin at the same dosing as before at 6 mg daily. Please have the home visiting nurse check your INR on Wednesday. Please have the home visiting nurse also check your blood count and kidney function on Wednesday. You were taken off of all antibiotics for your leg wounds as they are healing. You did grow bacteria from your urine but because you are not having any signs of infection, this will not be treated with antibiotics at this time. Please follow-up with the wound care center as scheduled. Please follow-up with your primary care physician as scheduled for you. Prescriptions: Continued levothyroxine 50 mcg capsule 50 mcg PO DAILY RF: 0 multivitamin capsule 1 cap PO DAILY RF: 0 Adult Probiotic 3 billion cell capsule 3,000 mmu cells PO DAILY RF: 0 sodium bicarbonate 650 mg tablet 650 mg PO QID RF: 0 citalopram [Celexa] 40 mg tablet 40 mg PO DAILY RF: 0 Aranesp (in polysorbate) 60 mcg/mL solution 60 mcg subcut .q 3 months RF: 0 ferrous gluconate [Ferate] 240 mg (27 mg iron) tablet 240 mg PO DAILY RF: 0 Levemir U-100 Insulin 100 unit/mL solution 10 units SQ QAM RF: 0 Levemir U-100 Insulin 100 unit/mL solution 25 units SQ QPM RF: 0 Santyl 250 unit/gram ointment 1 applic TOP DAILY 30 Days Qty: 90 RF: 1 miscellaneous medical supply mis .ROUTE .MEDSUPPLY Qty: 1 RF: 0 miscellaneous medical supply [facility] [place] [id number] .MEDSUPPLY Qty: 1 RF: 0 warfarin 2 mg tablet 6 mg PO DAILY RF: 0 Discontinued doxycycline hyclate 100 mg capsule 100 mg PO BID RF: 0 levofloxacin [Levaquin] 500 mg tablet 500 mg PO .qod RF: 0 Stand-Alone Forms: [facility] Discharge Orders: Discharge Order (Routine); Ordered 09/09/18 Ordered By: Camelia Huertas Admission Data Admit Date/Time: 09/07/18 18:38 Attending Provider: Camelia Huertas Admit Provider: Telly Workman Primary Care Provider: Luis Enrique Weinstein III Other Providers: Asad Patrick Service: Medical Other Interventions: Discharge Summary Assessment (RN) Last Done: 09/09/18 15:16 Pending Studies at Discharge: No DC Date/Time DO NOT enter until pt leaves facility: 09/09/18 16:24
[2018-09-09] MEDS ORDERED: WARFARIN SOD 2 MG TAB PO SCH (16:00)
== END 2018-09-09 16:24 | disposition home health service (06) | DRG 813 ==
LOC: ED 15:38 → SUATTDRO 18:38 → 2W 18:38
DX: F32.9 Major depressive disorder, single episode, unspecified; S24.102S Unspecified injury at T2-T6 level of thoracic spinal cord, sequela; T36.8X5A Adverse effect of other systemic antibiotics, initial encounter; R79.1 Abnormal coagulation profile; Z79.4 Long term (current) use of insulin; E11.22 Type 2 diabetes mellitus with diabetic chronic kidney disease; R19.5 Other fecal abnormalities; L89.892 Pressure ulcer of other site, stage 2; Z79.2 Long term (current) use of antibiotics; L97.509 Non-pressure chronic ulcer of other part of unspecified foot with unspecified severity; D63.1 Anemia in chronic kidney disease; B95.61 Methicillin susceptible Staphylococcus aureus infection as the cause of diseases classified elsewhere; Z66 Do not resuscitate; G82.20 Paraplegia, unspecified; R82.90 Unspecified abnormal findings in urine; Z79.01 Long term (current) use of anticoagulants; L89.620 Pressure ulcer of left heel, unstageable; Z96.0 Presence of urogenital implants; K21.9 Gastro-esophageal reflux disease without esophagitis; Z79.899 Other long term (current) drug therapy; W13.2XXS Fall from, out of or through roof, sequela; N31.9 Neuromuscular dysfunction of bladder, unspecified; N18.4 Chronic kidney disease, stage 4 (severe); L89.610 Pressure ulcer of right heel, unstageable; D68.32 Hemorrhagic disorder due to extrinsic circulating anticoagulants; E03.9 Hypothyroidism, unspecified; D62 Acute posthemorrhagic anemia; Z86.718 Personal history of other venous thrombosis and embolism; R04.0 Epistaxis; E11.621 Type 2 diabetes mellitus with foot ulcer

== ENCOUNTER 2019-04-11 13:02 | Inpatient (IN) ==
[2019-04-11] MEDS ORDERED: GLUCOSE 40% GEL 15 GM TUBE PO PRN (15:08)
[2019-04-11] MEDS ORDERED: DEXTROSE 50% 50 ML SYRINGE IV PRN (15:08)
[2019-04-11] MEDS ORDERED: ACETAMINOPHEN 325 MG TAB PO PRN (15:08)
[2019-04-11] MEDS ORDERED: GLUCOSE 10 TABS/TUBE PO PRN (15:08)
[2019-04-11] MEDS ORDERED: PHYTONADIONE 5 MG TAB PO STA (15:08)
[2019-04-11] MEDS ORDERED: GLUCAGON FOR INJ 1 MG VIAL SQ PRN (15:08)
[2019-04-11] MEDS ORDERED: CARBOHYDRATES FOR HYPOGLYCEMIA PO PRN (15:08)
[2019-04-11] MEDS ORDERED: ONDANSETRON INJ 2 MG/ML 2 ML VIAL IV PRN (15:08)
[2019-04-11] MEDS ORDERED: PIPERACILL/TAZOBAC CONSULT ACTIVE PRN (15:14)
[2019-04-11] MEDS ORDERED: DOCUSATE SODIUM 100 MG CAP PO PRN (15:17)
--- NOTE | 2019-04-11 15:23 | History & Physical Report ---
Date of Service April 11, 2019 Assessment & Plan (1) UTI (urinary tract infection): Patient with chronic indwelling Brown presenting with acute UTI. Culture from 04/06/19 +Klebsiella PNA and Pseudomonas aeruginosa. Patient previously being treated with Bactrim. He is afebrile, HD stable, non-toxic in appearance. Klebsiella jurado-sensitive, Psuedomonas resistant to Cipro/Levaquin. Outpatient team attempts to arrange outpatient Cefepime unsuccessful. -Zosyn 3.375gm IV q 8 hours -Follow cultures -Patient may need to have Brown changed -Tylenol as needed Present on Admission?: Yes (2) Elevated INR: INR = 9.5, repeat 7.9. Slight bleeding from a skin tear on his back. Possibly secondary to effects of Bactrim. Last dose of Coumadin was Sunday 04/09 -Vitamin K 5mg po x 1 dose -Repeat INR daily -Continue to hold Coumadin Present on Admission?: Yes (3) CKD (chronic kidney disease) stage 4, GFR 15-29 ml/min: CKD with baseline Cr of 2.78, Cr today = 4.98. Possibly secondary to volume contraction, medication effects from Bactrim. Patient with adequate UOP. K=4.9 -Check urine Na/Cr for FeNa -Check urine eosinophils for possible AIN with recent Bactrim -IVF -Monitor BUN/Cr/Electrolytes and UOP -Avoid nephrotoxic agents -Renal dosing where needed -Continue sodium bicarbonate 650mg po BID -Continue PO iron and Aranesp for AOCD Present on Admission?: Yes (4) Depression: Chronic. Stable -Continue Celexa 40mg po daily Present on Admission?: Yes (5) Hypothyroidism: Chronic -Continue Synthroid 50mcg po daily Present on Admission?: Yes (6) Chronic indwelling Brown catheter: UTI management as above -May need Brown changed Present on Admission?: Yes (7) History of DVT (deep vein thrombosis): Patient on coumadin anticoagulation - see above -Continue to hold Coumadin -INR q AM Present on Admission?: Yes (8) Diabetes: Chronic. -Continue Levemir 10u qM and 20u qPM -ISS Present on Admission?: Yes (9) Paraplegia: Noted -Frequent turning and wound care F/E/N- NSS at 100mL/hr x 2 liters, monitor electrolytes and replete as needed, CC diet as tolerated Ppx - Holding Coumadin, monitor INR Code - DNR/DNI per discussion with patient Dispo - Admit to medical floor History of Present Illness Chief Complaint: UTI, elevated INR, bleeding wound Primary Care Provider: Luis Enrique Weinstein MD Luis Woods is a 69yo C male, T4 paraplegic from fall, CKD IV, DM and anemia. Patient was recently diagnosed with a UTI and started on Bactrim. PCP was notified yesterday by home nursing that the patient's INR was elevated to 8. He was instructed to hold his Coumadin yesterday and today which he did. Patient has an indwelling Brown catheter and has had dark urine output over the last few days. also states that he has a lot of mucus and sediment in his urine which is typical of his UTIs. He has a wound on his back which has been bleeding significantly since yesterday. His reports he soaked through the bed. +subjective fevers and chills +nausea and dry heaves and dizziness en route to hospital Allergies Allergy/AdvReac Type Severity Reaction Status Date / Time No Known Allergies Allergy Unverified 03/13/19 12:55 Home Medications Home Medications Medication Instructions Recorded Confirmed Type lactobacillus combination no.8 3 3,000 mmu cells PO DAILY 07/26/18 04/11/19 His tory billion cell capsule multivitamin 1 cap PO DAILY 07/26/18 04/11/19 History blood sugar diagnostic #10 ea 10/17/18 03/13/19 History lancets 30 gauge #25 ea 10/17/18 03/13/19 History pen needle, diabetic 31 gauge x #30 ea 10/17/18 03/13/19 History 3/16" pen needle, diabetic 32 gauge x #10 ea 10/17/18 03/13/19 History 5/32" insulin detemir U-100 100 unit/mL 10 units SQ .COMPLEX #15 ml 11/17/18 04/11/19 Rx (3 mL) subcutaneous pen sodium bicarbonate 650 mg tablet 650 mg PO BID tab 02/09/19 04/11/19 History citalopram 40 mg tablet 40 mg PO DAILY #90 tab 03/13/19 04/11/19 Rx levothyroxine 50 mcg tablet 50 mcg PO DAILY #90 tab 03/13/19 04/11/19 Rx warfarin 2 mg tablet 6 mg PO .COMPLEX #270 tab 03/13/19 04/11/19 Rx sulfamethoxazole 800 1 tab PO BID 7 Days #14 tab 04/06/19 Rx mg-trimethoprim 160 mg tablet epoetin lupe-epbx 10,000 unit/mL 20,000 units SQ .every 14 days 360 04/11/19 Rx injection solution Days #4 ml ferrous gluconate [Ferate] 240 mg PO BID 04/11/19 04/11/19 History Past Med/Surg History Medical History (Updated 04/11/19 @ 20:28 by Amira Lamas DO) Anemia Chronic kidney disease (Chronic) Diabetes (Chronic) H/O deep venous thrombosis (Chronic) H/O renal calculi (Chronic) History of stent insertion of renal artery (Resolved) Hypothyroidism (Chronic) Paraplegia (Chronic) T4 Severe epistaxis Surgical History H/O Spinal surgery (Resolved) S/P appendectomy (Resolved) Social History Preferred Language: [place] Communication Ability: Effective Visual Impairment: No Limitations Hearing Ability: Normal Internet Project Manager Required: No Beliefs That Will Affect Care: None marital status: Current Living Situation: Spouse current occupational status: retired Other Information That Helps Us Care for You: No Feels Safe at Home: Yes Safety Concerns: Feels Safe At This Time Smoking Status: Never smoker Hx Alcohol Use: No Hx Substance Use: No Review of Systems Review of Systems: All systems reviewed & are unremarkable except as noted in HPI & below Physical Exam Physical Exam: General: patient somnolent, arousable, resting comfortably, NAD, non-toxic in appearance, AA&O x 4 Skin: warm, dry, skin tear on back with active bleeding, bandage applied, BL LE dressed, no bleeding/drainage HEENT: NC/AT, PERRL, EOMI, anicteric sclera, conjunctiva without injection, external ear normal to inspection and nontender, nares patent, moist mucus membranes, dentition intact, no oropharyngeal lesions, neck supple, trachea midline, no LAD, no thyromegaly, no JVD Heart: +S1/S2, regular, no m/r/g Lungs: equal air entry bilaterally, no rales/rhonchi/wheezes Abd: +BS, soft, NT/ND, no masses/organomegaly/ascites, Brown in place with dark, cloudy urine Ext: warm, 2+ pulses in UE/LE bilaterally, no clubbing/cyanosis or edema Neuro: AA&O x 4, T4 paraplegia Results & Data Vital Signs (Past 12 Hours) Lab Results 04/11/19 04/11/19 04/11/19 Range/Units 15:50 15:50 15:50 WBC 14.20 H (4.8-10.8) K/uL RBC 3.33 L (4.7-6.1) M/uL Hgb 8.8 L (14.0-18.0) g/dL Hct 27.3 L (42-52) % MCV 82.0 (80-100) fL MCH 26.4 (25-34) pg MCHC 32.2 (32-36) g/dL RDW Std Deviation 64.4 H (36.4-46.3) fL RDW Coeff of Marvin 21.4 H (11.5-14.5) % Plt Count 457 H (130-400) K/uL MPV 10.2 (7.4-10.4) fL Immature Gran % (Auto) 2.8 % Neut % (Auto) 82.2 % Lymph % (Auto) 8.4 % [place] % (Auto) 3.2 % Eos % (Auto) 3.1 % Baso % (Auto) 0.3 % Immature Gran # (Auto) 0.40 H (0.00-0.02) K/uL Neut # (Auto) 11.67 H (1.4-6.5) K/uL Lymph # (Auto) 1.19 L (1.2-3.4) K/uL [place] # (Auto) 0.46 (0.11-0.59) K/uL Eos # (Auto) 0.44 (0-0.5) K/uL Baso # (Auto) 0.04 (0-0.2) K/uL Anisocytosis Present Ovalocytes 1+ PT 69.7 H (9.0-12.0) Seconds INR 7.9 H* (0.9-1.1) Sodium 135 L (136-145) mmol/L Potassium 4.9 (3.5-5.1) mmol/L Chloride 103 (98-107) mmol/L Carbon Dioxide 23 (21-32) mmol/L Anion Gap 8.0 (3-11) BUN 71 H (7-18) mg/dl Creatinine 4.98 H* (0.6-1.4) mg/dl Est Cr Clr Drug Dosing 16.3 ml/min Est GFR ( Amer) 12.8 Est GFR (Non-Af Amer) 11.1 BUN/Creatinine Ratio 14.3 (10-20) Glucose 124 H (70-99) mg/dl Calcium 9.3 (8.5-10.1) mg/dl Phosphorus 4.6 (2.5-4.9) mg/dl Magnesium 2.5 H (1.8-2.4) mg/dl Total Bilirubin 0.2 (0.2-1) mg/dl Direct Bilirubin < 0.1 (0-0.2) mg/dl AST 13 L (15-37) U/L ALT 34 (12-78) U/L Alkaline Phosphatase 108 (45-117) U/L Total Protein 7.9 (6.4-8.2) gm/dl Albumin 2.7 L (3.4-5.0) gm/dl Ur Random Creatinine mg/dl Ur Random Sodium mmol/L Hepatitis C Ab Screen (Neg) 04/11/19 04/11/19 Range/Units 15:50 Unknown WBC (4.8-10.8) K/uL RBC (4.7-6.1) M/uL Hgb (14.0-18.0) g/dL Hct (42-52) % MCV (80-100) fL MCH (25-34) pg MCHC (32-36) g/dL RDW Std Deviation (36.4-46.3) fL RDW Coeff of Marvin (11.5-14.5) % Plt Count (130-400) K/uL MPV (7.4-10.4) fL Immature Gran % (Auto) % Neut % (Auto) % Lymph % (Auto) % [place] % (Auto) % Eos % (Auto) % Baso % (Auto) % Immature Gran # (Auto) (0.00-0.02) K/uL Neut # (Auto) (1.4-6.5) K/uL Lymph # (Auto) (1.2-3.4) K/uL [place] # (Auto) (0.11-0.59) K/uL Eos # (Auto) (0-0.5) K/uL Baso # (Auto) (0-0.2) K/uL Anisocytosis Ovalocytes PT (9.0-12.0) Seconds INR (0.9-1.1) Sodium (136-145) mmol/L Potassium (3.5-5.1) mmol/L Chloride (98-107) mmol/L Carbon Dioxide (21-32) mmol/L Anion Gap (3-11) BUN (7-18) mg/dl Creatinine (0.6-1.4) mg/dl Est Cr Clr Drug Dosing ml/min Est GFR ( Amer) Est GFR (Non-Af Amer) BUN/Creatinine Ratio (10-20) Glucose (70-99) mg/dl Calcium (8.5-10.1) mg/dl Phosphorus (2.5-4.9) mg/dl Magnesium (1.8-2.4) mg/dl Total Bilirubin (0.2-1) mg/dl Direct Bilirubin (0-0.2) mg/dl AST (15-37) U/L ALT (12-78) U/L Alkaline Phosphatase (45-117) U/L Total Protein (6.4-8.2) gm/dl Albumin (3.4-5.0) gm/dl Ur Random Creatinine 44.0 mg/dl Ur Random Sodium 66 mmol/L Hepatitis C Ab Screen Neg (Neg) Code Status & VTE Plan Code Status DNR VTE Prophylaxis Plan VTE Prophylaxis will be ordered: Yes PG Care Time/CCT Total # of Minutes Spent Total Time Spent with Patient: Total time spent is greater than 50% in coordination of care (as documented) at patient's floor/unit and/or counseling patient: Coding Level of Care Code 03154 OBS Care - Level 3 Diagnoses UTI (urinary tract infection) N30.00 Urinary tract infection type: acute cystitis Hematuria presence: without hematuria Elevated INR R79.1 CKD (chronic kidney disease) stage 4, GFR 15-29 ml/min N18.4 Depression F32.9 Depression Type: major depressive disorder Major depression recurrence: single episode Active/Remission status: remission status unspecified Hypothyroidism E03.9 Hypothyroidism type: unspecified Chronic indwelling Brown catheter Z96.0 History of DVT (deep vein thrombosis) Z86.718 Diabetes E11.9; Z79.4 Diabetes mellitus type: type 2 Diabetes mellitus long term care administrator insulin use: with group home use Diabetes mellitus complication status: without complication Paraplegia G82.20 (1) Depression Depression Type: major depressive disorder Major depression recurrence: single episode Active/Remission status: remission status unspecified Qualified Code(s): F32.9 - Major depressive disorder, single episode, unspecified (2) Hypothyroidism Hypothyroidism type: unspecified Qualified Code(s): E03.9 - Hypothyroidism, unspecified (3) Diabetes Diabetes mellitus type: type 2 Diabetes mellitus long term care administrator insulin use: with long term care administrator use Diabetes mellitus complication status: without complication Qualified Code(s): E11.9 - Type 2 diabetes mellitus without complications; Z79.4 - USP (current) use of insulin (4) UTI (urinary tract infection) Urinary tract infection type: acute cystitis Hematuria presence: without misty turia Qualified Code(s): N30.00 - Acute cystitis without hematuria
[2019-04-11] MEDS ORDERED: PATIENT'S HEIGHT AND/OR WEIGHT NEEDED SCH (15:30)
[2019-04-11 16:00] LABS: Hematocrit (blood only) 27.3 % (42-52); Hemoglobin 8.8 g/dL (14.0-18.0); Mean Corpuscular Hemoglobin 26.4 pg (25-34); Mean Corpuscular Hgb Conc 32.2 g/dL (32-36); Mean Platelet Volume 10.2 fL (7.4-10.4); Platelet Count 457 K/uL (130-400); RDW Coefficient of Variation 21.4 % (11.5-14.5); RDW Standard Deviation 64.4 fL (36.4-46.3); Red Blood Count 3.33 M/uL (4.7-6.1)
[2019-04-11] MEDS ORDERED: PIPERACILLIN/TAZOBACTAM 3.375 GM in DEXTROSE 5% 100 ML IV ONE (16:00)
[2019-04-11] MEDS: SODIUM CHLORIDE 0.9% 1000ML 1,000 ML IV SCH (16:04)
[2019-04-11 16:20] LABS: Anisocytosis Present; Basophils # (auto) 0.04 K/uL (0-0.2); Basophils % (auto) 0.3 %; Eosinophils # (auto) 0.44 K/uL (0-0.5); Eosinophils % (auto) 3.1 %; Immature Granulocytes % (auto) 2.8 %; Lymphocytes # (auto) 1.19 K/uL (1.2-3.4); Lymphocytes % (auto) 8.4 %; Monocytes # (auto) 0.46 K/uL (0.11-0.59); Monocytes % (auto) 3.2 %; Neutrophils # (auto) 11.67 K/uL (1.4-6.5); Neutrophils % (auto) 82.2 %; Ovalocytes 1+
[2019-04-11 16:21] LABS: Prothrombin Time 69.7 Seconds (9.0-12.0)
[2019-04-11 16:28] LABS: INR 7.9 (0.9-1.1)
[2019-04-11 16:35] LABS: Alanine Aminotransferase 34 U/L (12-78); Albumin Level 2.7 gm/dl (3.4-5.0); Alkaline Phosphatase 108 U/L (45-117); Aspartate Aminotransferase 13 U/L (15-37); BUN Creatinine Ratio 14.3 (10-20); Bilirubin Direct < 0.1 mg/dl (0-0.2); Bilirubin,Total 0.2 mg/dl (0.2-1); Blood Urea Nitrogen 71 mg/dl (7-18); Calcium 9.3 mg/dl (8.5-10.1); Carbon Dioxide 23 mmol/L (21-32); Chloride 103 mmol/L (98-107); Creatinine Clr Calc Pharmacy 16.3 ml/min; Est GFR (African American) 12.8; Est GFR (Non-African American) 11.1; Glucose 124 mg/dl (70-99); Magnesium 2.5 mg/dl (1.8-2.4); Phosphorus 4.6 mg/dl (2.5-4.9); Potassium 4.9 mmol/L (3.5-5.1); Sodium 135 mmol/L (136-145); Total Protein 7.9 gm/dl (6.4-8.2)
[2019-04-11] MEDS: INSULIN DETEMIR FLEXPEN/FLEX TOUCH 100 UNITS/ML 3ML SQ SCH (20:57)
[2019-04-11] MEDS: FERROUS GLUCONATE 324 MG TAB PO SCH (20:57)
[2019-04-11] MEDS: SODIUM BICARBONATE 650 MG TAB PO SCH (20:57)
[2019-04-12] MEDS: PIPERACILLIN/TAZOBACTAM 3.375 GM in DEXTROSE 5% 100 ML IV SCH ×3 (00:17→23:33)
[2019-04-12] MEDS: SODIUM CHLORIDE 0.9% 1000ML 1,000 ML IV SCH (02:04)
[2019-04-12] MEDS: LEVOTHYROXINE SODIUM 50 MCG TABLET PO SCH (05:30)
[2019-04-12 06:02] LABS: Hematocrit (blood only) 28.4 % (42-52); Hemoglobin 9.1 g/dL (14.0-18.0); Mean Corpuscular Hemoglobin 26.4 pg (25-34); Mean Corpuscular Volume 82.3 fL (80-100); Mean Platelet Volume 10.1 fL (7.4-10.4); Platelet Count 493 K/uL (130-400); RDW Coefficient of Variation 21.7 % (11.5-14.5); RDW Standard Deviation 64.9 fL (36.4-46.3); Red Blood Count 3.45 M/uL (4.7-6.1); White Blood Count 22.17 K/uL (4.8-10.8)
[2019-04-12 06:11] LABS: Prothrombin Time 45.6 Seconds (9.0-12.0)
[2019-04-12 06:19] LABS: Anisocytosis Present; Basophils # (auto) 0.05 K/uL (0-0.2); Basophils % (auto) 0.2 %; Eosinophils % (auto) 2.7 %; Immature Granulocytes # (auto) 0.33 K/uL (0.00-0.02); Immature Granulocytes % (auto) 1.5 %; Lymphocytes # (auto) 2.04 K/uL (1.2-3.4); Lymphocytes % (auto) 9.2 %; Monocytes # (auto) 1.08 K/uL (0.11-0.59); Monocytes % (auto) 4.9 %; Neutrophils # (auto) 18.07 K/uL (1.4-6.5); Neutrophils % (auto) 81.5 %; Polychromasia 1+; Tear Drop Cells Occasional; Toxic Granulation Occasional
[2019-04-12 06:32] LABS: BUN Creatinine Ratio 14.8 (10-20); Creatinine Clr Calc Pharmacy 15.8 ml/min; Est GFR (African American) 12.3; Est GFR (Non-African American) 10.6; Potassium 4.6 mmol/L (3.5-5.1); Thyroid Stimulating Hormone 1.68 uIu/ml (0.300-4.500)
[2019-04-12] MEDS: LACTOBACILLUS ACIDOPHILUS (FLORANEX) TAB PO SCH (07:46)
[2019-04-12] MEDS: INSULIN DETEMIR FLEXPEN/FLEX TOUCH 100 UNITS/ML 3ML SQ SCH ×2 (07:46→21:28)
[2019-04-12] MEDS: MULTIVITAMIN TAB PO SCH (07:46)
[2019-04-12] MEDS: FERROUS GLUCONATE 324 MG TAB PO SCH ×2 (07:46→21:27)
[2019-04-12] MEDS: SODIUM BICARBONATE 650 MG TAB PO SCH ×2 (07:46→21:31)
[2019-04-12] MEDS: CITALOPRAM 40 MG TAB PO SCH (07:46)
--- NOTE | 2019-04-12 10:01 | Nephrology Consultation ---
Date of Consultation April 12, 2019 Assessment & Plan (1) Acute kidney injury: Luis has stage 4 chronic kidney disease with baseline creatinine around 3.0, in the setting of obstructive uropathy. Admitted to the hospital with UTI requiring IV antibiotic. On admission use found to have acute kidney injury creatinine 5.0, electrolyte acceptable. Renal function relatively stable. Currently on IV antibiotic and IV fluid. He is otherwise asymptomatic and hemodynamically stable. No uremic symptom. Has been having decent urine output. Blood pressure well controlled. --okay to continue on IV fluids for now however if p.o. intake remains adequate, blood pressure controlled, IV fluid can be discontinued. --monitor renal function with daily renal panel, electrolyte currently acceptable, no indication for renal replacement therapy. Considering advanced CKD patient does have risk for progressive worsening of renal function and eventual need for renal replacement therapy in future. Discussed in detail with the patient about that possibility. Patient understands and previously thought about it and discussed with his family and considering his underlying other health issues including paraplegic state he decided not to consider renal replacement therapy in future. --will give Epogen 19427 units x1 dose today and continue on oral iron as he has been taking at home --continue on sodium bicarbonate 650 mg twice a day --dose medications for GFR less than 30 Will follow Thank you for allowing me to participate in your patient's care. It was a pleasure to see Luis (2) Chronic kidney disease, stage 4 (severe): (3) UTI (urinary tract infection): (4) Elevated INR: (5) Anemia: (6) Paraplegia: History of Present Illness Reason for Consultation: Acute kidney injury with history of advanced CKD, anemia and metabolic acidosis. Attending Physician: Javier Dorman DO History of Present Illness Luis Woods is a 69-year-old gentlemen with past medical history significant for stage IV CKD, history of obstructive uropathy, paraplegia admitted to the hospital with urinary tract infection with failed outpatient antibiotic, coagulopathy and acute kidney injury. Nephrology consult was requested to manage LATOYA with advanced CKD. Electronic medical records including labs and imaging are reviewed in detail during patient's visit. Luis was admitted yesterday with your UTI requiring intravenous antibiotic. He has chronic indwelling Brown catheter and history of recurrent urinary tract in fection. Culture showed Pseudomonas and Klebsiella, started on Zosyn. Hemodynamically stable and has been otherwise asymptomatic. History of paraplegia after fall from roof and spinal injury, has indwelling Brown catheter. Also has history of recurrent obstructive uropathy with nephrolithiasis. Has stage IV CKD, baseline creatinine lately has been around 3, thought to be secondary to obstructive uropathy. On admission yesterday creatinine was 5.0, has been stable. Was started on IV fluid which currently continued at 100 mL/hour. Has other stigmata of advanced CKD including anemia and metabolic acidosis. Prior PTH has been normal. He has been on Aranesp monthly, on sodium bicarbonate orally. Urine output has been normal. Currently he is otherwise feeling well and denies any specific symptoms. Allergies Allergy/AdvReac Type Severity Reaction Status Date / Time No Known Allergies Allergy Unverified 03/13/19 12:55 Home Medications Home Medications Medication Instructions Recorded Confirmed Type lactobacillus combination no.8 3 3,000 mmu cells PO DAILY 07/26/18 04/11/19 History billion cell capsule multivitamin 1 cap PO DAILY 07/26/18 04/11/19 History blood sugar diagnostic #10 ea 10/17/18 03/13/19 History lancets 30 gauge #25 ea 10/17/18 03/13/19 History pen needle, diabetic 31 gauge x #30 ea 10/17/18 03/13/19 History 3/16" pen needle, diabetic 32 gauge x #10 ea 10/17/18 03/13/19 History 5/32" insulin detemir U-100 100 unit/mL 10 units SQ .COMPLEX #15 ml 11/17/18 04/11/19 Rx (3 mL) subcutaneous pen sodium bicarbonate 650 mg tablet 650 mg PO BID tab 02/09/19 04/11/19 History citalopram 40 mg tablet 40 mg PO DAILY #90 tab 03/13/19 04/11/19 Rx levothyroxine 50 mcg tablet 50 mcg PO DAILY #90 tab 03/13/19 04/11/19 Rx warfarin 2 mg tablet 6 mg PO .COMPLEX #270 tab 03/13/19 04/11/19 Rx sulfamethoxazole 800 1 tab PO BID 7 Days #14 tab 04/06/19 Rx mg-trimethoprim 160 mg tablet epoetin lupe-epbx 10,000 unit/mL 20,000 units SQ .every 14 days 360 04/11/19 Rx injection solution Days #4 ml ferrous gluconate [Ferate] 240 mg PO BID 04/11/19 04/11/19 History Patient History Medical History (Updated 04/12/19 @ 10:02 by Jaci Moreno MD) Acute kidney injury Anemia Chronic kidney disease (Chronic) Chronic kidney disease, stage 4 (severe) Diabetes (Chronic) H/O deep venous thrombosis (Chronic) H/O renal calculi (Chronic) History of stent insertion of renal artery (Resolved) Hypothyroidism (Chronic) Paraplegia (Chronic) T4 Severe epistaxis Surgical History H/O Spinal surgery (Resolved) S/P appendectomy (Resolved) Social History Preferred Language: Sudanese Communication Ability: Effective Visual Impairment: No Limitations Hearing Ability: Normal Primary Care Nurse Practitioner Required: No Beliefs That Will Affect Care: None marital status: Current Living Situation: Spouse current occupational status: retired Other Information That Helps Us Care for You: No Feels Safe at Home: Yes Safety Concerns: Feels Safe At This Time Smoking Status: Never smoker Hx Alcohol Use: No Hx Substance Use: No Review of Systems Review of Systems: All systems reviewed & are unremarkable except as noted in HPI & below Physical Exam Constitutional: WD/WN, vitals as above well developed and well nourished; no acute distress Eyes: PERRL, conjunctivae normal, anicteric sclerae ENMT: external ear and nose normal, oropharynx normal Ears: no hearing im pairment Neck: trachea midline Respiratory: normal respiratory effort, lungs clear to auscultation no cough Auscultation: no crackles, no rales and no wheezes Cardiovascular: RRR, no murmur, no edema Gastrointestinal (Abdomen): normal bowel sounds, soft, nontender, no hepatosplenomegaly Percussion/Palpation: abdomen nontender, no guarding and abdomen not rigid Musculoskeletal: Extremities: extremities normal to inspection Gait: normal gait Skin: no rashes, warm and dry Neurologic: not confused Psychiatric: A+Ox3, euthymic affect Results & Data Vital Signs (Past 12 Hours) Vital Signs Temp Pulse Resp BP Pulse Ox 04/12/19 06:46 36.7 C 75 20 134/73 97 04/12/19 00:15 36.7 C 74 16 120/71 98 PG Care Time/CCT Total # of Minutes Spent Total Time Spent with Patient: Total time spent is greater than 50% in coordination of care (as documented) at patient's floor/unit and/or counseling patient: Coding Level of Care Code 37169 Inpt Consult Level 5 Diagnoses Acute kidney injury N17.9 Chronic kidney disease, stage 4 (severe) N18.4 UTI (urinary tract infection) N30.00 Urinary tract infection type: acute cystitis Hematuria presence: without hematuria Elevated INR R79.1 Anemia D64.9 Anemia type: unspecified type Paraplegia G82.20 (1) UTI (urinary tract infection) Urinary tract infection type: acute cystitis Hematuria presence: without hematuria Qualified Code(s): N30.00 - Acute cystitis without hematuria (2) Anemia Anemia type: unspecified type Qualified Code(s): D64.9 - Anemia, unspecified
[2019-04-12] MEDS ORDERED: EPOETIN ALFA 20,000 UNITS/ML VIAL SQ ONE (10:09)
--- NOTE | 2019-04-12 12:13 | Hospitalist Progress Note ---
Date of Service April 12, 2019 Assessment & Plan (1) UTI (urinary tract infection): Patient with chronic indwelling Ch presenting with acute UTI. Culture from 04/06/19 +Klebsiella PNA and Pseudomonas aeruginosa. Patient previously being treated with Bactrim continue Zosyn, WBC is up slightly at 22k, repeat tomorrow, no fever, vitals stable (2) Elevated INR: INR = 9.5, repeat 7.9. Slight bleeding from a skin tear on his back. Possibly secondary to effects of Bactrim. Last dose of Coumadin was Sunday 04/09 -Vitamin K 5mg po x 1 dose -Repeat INR today is 5.0, no further need for vitamin K, follow INR daily (3) CKD (chronic kidney disease) stage 4, GFR 15-29 ml/min: CKD with baseline Cr of 2.78, Cr up to 4.98 at time of admission. Possibly secondary to volume contraction, medication effects from Bactrim. Patient with adequate UOP. K stable represents LATOYA on CKD stage IV Cr is up to 5 today, consulted nephrology for their recommendations patient is drinking well, making adequate urine, no need for IV fluids repeat BMP in the morning -Continue sodium bicarbonate 650mg po BID -Continue PO iron and Aranesp for AOCD (4) Depression: Chronic. Stable -Continue Celexa 40mg po daily (5) Hypothyroidism: Chronic -Continue Synthroid 50mcg po daily (6) Chronic indwelling Ch catheter: UTI management as above (7) History of DVT (deep vein thrombosis): Patient on coumadin anticoagulation - see above -Continue to hold Coumadin -INR is 5.0 today (8) Diabetes: Chronic. -Continue Levemir 10u qM and 20u qPM -ISS monitor for hypoglycemia, no episodes (9) Paraplegia: Noted -Frequent turning and wound care (10) Acute kidney injury: LATOYA on CKD stage IV associated with CA UTI see above, continue to encourage PO intake, monitor UO K is stable repeat BMP in the morning (11) Catheter-associated urinary tract infection: continue Zosyn for time being will need 2 week course due to ch catheter Admission and Anticipated Discharge Date Admission Date: April 11, 2019 Anticipated date of discharge: 04/15/19 Subjective patient feeling fine, no acute issues eating well, no fever/chills, no sweats, no chest pain, no dyspnea, no cough he has been moving his bowels consistently has chronic ch catheter reviewed labs, Cr elevated at 5.14, up from 4.98 K is stable WBC up to 22k asked Dr. Moreno to see patient due to rise in Cr, appreciate her recommendations she asked patient to think about HD in the future given his stage IV disease, no immediate needs for COUNTY DIRECTOR at this time Review of Systems Review of Systems: All systems reviewed & are unremarkable except as noted in HPI & below Constitutional: + fatigue and + weakness; no fever, no chills and no sweats Respiratory: no cough and no dyspnea Cardiovascular: no chest pain, no palpitations and no edema Gastrointestinal: no abdominal pain, no nausea, no vomiting, no constipation and no diarrhea/loose stools Physical Exam Constitutional: WD/WN, vitals as above Eyes: PERRL, conjunctivae normal, anicteric sclerae ENMT: external ear and nose normal, oropharynx normal Neck: trachea midline, no thyromegaly Respiratory: normal respiratory effort, lungs clear to auscultation Cardiovascular: RRR, no murmur, no edema Gastrointestinal (Abdomen): normal bowel sounds, soft, nontender, no hepatosplenomegaly Musculoskeletal: Head/Neck/Chest: normocephalic and head atraumatic Extremities: strength 5/5 throughout (upper extremities, lower extremities paralyzed) and + muscle atrophy (lower extremities); no cyanosis, no clubbing and no petechiae Skin: no rashes, warm and dry Neurologic: CN's II-XI intact bilaterally and awake; + does not move all extremities (lower extremity paralysis) Psychiatric: A+Ox3, euthymic affect Lymphatic: no cervical or axillary lymphadenopathy Results & Data ([facility]) Vital Signs (Past 12 Hours) Vital Signs Temp Pulse Resp BP Pulse Ox 04/12/19 06:46 36.7 C 75 20 134/73 97 04/12/19 00:15 36.7 C 74 16 120/71 98 Laboratory Results Laboratory Results - last 24 hr 04/11/19 04/12/19 04/12/19 20:23 05:21 05:21 WBC 22.17 H RBC 3.45 L Hgb 9.1 L Hct 28.4 L MCV 82.3 MCH 26.4 MCHC 32.0 RDW Std Deviation 64.9 H RDW Coeff of Marvin 21.7 H Plt Count 493 H MPV 10.1 Immature Gran % (Auto) 1.5 Neut % (Auto) 81.5 Lymph % (Auto) 9.2 [place] % (Auto) 4.9 Eos % (Auto) 2.7 Baso % (Auto) 0.2 Immature Gran # (Auto) 0.33 H Neut # (Auto) 18.07 H Lymph # (Auto) 2.04 [place] # (Auto) 1.08 H Eos # (Auto) 0.60 H Baso # (Auto) 0.05 Toxic Granulation Occasional Polychromasia 1+ Anisocytosis Present Tear Drop Cells Occasional PT 45.6 H INR 5.0 H Sodium Potassium Chloride Carbon Dioxide Anion Gap BUN Creatinine Est Cr Clr Drug Dosing Est GFR ( Amer) Est GFR (Non-Af Amer) BUN/Creatinine Ratio Glucose POC Glucose 163 H Calcium TSH 04/12/19 04/12/19 04/12/19 05:21 07:54 12:01 WBC RBC Hgb Hct MCV MCH MCHC RDW Std Deviation RDW Coeff of Marvin Plt Count MPV Immature Gran % (Auto) Neut % (Auto) Lymph % (Auto) [place] % (Auto) Eos % (Auto) Baso % (Auto) Immature Gran # (Auto) Neut # (Auto) Lymph # (Auto) [place] # (Auto) Eos # (Auto) Baso # (Auto) Toxic Granulation Polychromasia Anisocytosis Tear Drop Cells PT INR Sodium 136 Potassium 4.6 Chloride 106 Carbon Dioxide 22 Anion Gap 8.0 BUN 75 H Creatinine 5.14 H* Est Cr Clr Drug Dosing 15.8 Est GFR ( Amer) 12.3 Est GFR (Non-Af Amer) 10.6 BUN/Creatinine Ratio 14.8 Glucose 76 POC Glucose 81 124 H Calcium 9.0 TSH 1.680 04/12/19 17:00 WBC RBC Hgb Hct MCV MCH MCHC RDW Std Deviation RDW Coeff of Marvin Plt Count MPV Immature Gran % (Auto) Neut % (Auto) Lymph % (Auto) [place] % (Auto) Eos % (Auto) Baso % (Auto) Immature Gran # (Auto) Neut # (Auto) Lymph # (Auto) [place] # (Auto) Eos # (Auto) Baso # (Auto) Toxic Granulation Polychromasia Anisocytosis Tear Drop Cells PT INR Sodium Potassium Chloride Carbon Dioxide Anion Gap BUN Creatinine Est Cr Clr Drug Dosing Est GFR ( Amer) Est GFR (Non-Af Amer) BUN/Creatinine Ratio Glucose POC Glucose 109 H Calcium TSH Medications Administered Current Inpatient Medications Acetaminophen (Tylenol) 650 mg PO Q4H PRN PRN Reason: pain/fever Stop: 05/11/19 15:07 Citalopram Hydrobromide (Celexa) 40 mg PO DAILY [facility] Stop: 05/12/19 08:59 Last Admin: 04/12/19 07:46 Dose: 40 mg Documented by: Dextrose (Dextrose 50%) 25 - 50 ml IV UD PRN; Protocol PRN Reason: Hypoglycemia Protocol Stop: 05/11/19 15:07 Docusate Sodium (Colace) 100 mg PO BID PRN PRN Reason: Constipation Stop: 05/11/19 15:16 Ferrous Gluconate (Ferrous Gluconate) 324 mg PO BID [facility] Stop: 05/11/19 20:59 Last Admin: 04/12/19 07:46 Dose: 324 mg Documented by: Glucagon (Glucagen) 1 mg SQ UD PRN; Protocol PRN Reason: Hypoglycemia Protocol Stop: 05/11/19 15:07 Glucose (Dex4 Glucose) 4 - 8 tabs PO UD PRN; Protocol PRN Reason: Hypoglycemia Protocol Stop: 05/11/19 15:07 Glucose (Glucose 40%) 15 - 30 gm PO UD PRN; Protocol PRN Reason: Hypoglycemia Protocol Stop: 05/11/19 15:07 Piperacillin Sod/Tazobactam (Sod 3.375 gm/ Dextrose) 115 mls @ 28.75 mls/hr IV Q12H [facility]; Protocol Stop: 04/22/19 00:00 Last Infusion: 04/12/19 15:30 Dose: Infused Documented by: Insulin Detemir (Levemir Flextouch) 20 units SQ QPM [facility] Stop: 05/11/19 20:59 Last Admin: 04/11/19 20:57 Dose: 20 units Documented by: Insulin Detemir (Levemir Flextouch) 10 units SQ QAM [facility] Stop: 05/12/19 08:59 Last Admin: 04/12/19 07:46 Dose: 10 units Documented by: Lactobacillus Acidophilus (Floranex) 4 tab PO DAILY [facility] Stop: 05/12/19 08:59 Last Admin: 04/12/19 07:46 Dose: 4 tab Documented by: Levothyroxine Sodium (Synthroid) 50 mcg PO DAILYBB [facility] Stop: 05/12/19 06:29 Last Admin: 04/12/19 05:30 Dose: 50 mcg Documented by: Miscellaneous (Carbohydrates For Hypoglycemia) 15 - 30 gm PO UD PRN PRN Reason: Hypoglycemia Protocol Stop: 05/11/19 15:07 Miscellaneous Information (Consult) 1 ea N/A UD PRN PRN Reason: Consult Stop: 05/11/19 15:13 Multivitamins (Multivitamin Tab) 1 tab PO QAM [facility] Stop: 05/12/19 08:59 Last Admin: 04/12/19 07:46 Dose: 1 tab Documented by: Ondansetron HCl (Zofran) 4 mg IV Q6H PRN PRN Reason: Nausea Stop: 05/11/19 15:07 Sodium Bicarbonate (Sodium Bicarbonate) 650 mg PO BID [facility] Stop: 05/11/19 20:59 Last Admin: 04/12/19 07:46 Dose: 650 mg Documented by: PG Care Time/CCT Total # of Minutes Spent Total Time Spent with Patient: Total time spent is greater than 50% in coordination of care (as documented) at patient's floor/unit and/or counseling patient: Coding Level of Care Code 81260 Subseq Hosp Care Lvl 3 Diagnoses UTI (urinary tract infection) N30.00 Hematuria presence: without hematuria Urinary tract infection type: acute cystitis Elevated INR R79.1 CKD (chronic kidney disease) stage 4, GFR 15-29 ml/min N18.4 Depression F32.9 Active/Remission status: remission status unspecified Depression Type: major depressive disorder Major depression recurrence: single episode Hypothyroidism E03.9 Hypothyroidism type: unspecified Chronic indwelling Ch catheter Z96.0 History of DVT (deep vein thrombosis) Z86.718 Diabetes E11.9; Z79.4 Diabetes mellitus complication status: without complication Diabetes mellitus residential insulin use: with residential use Diabetes mellitus type: type 2 Paraplegia G82.20 Acute kidney injury N17.9 Catheter-associated urinary tract infection T83.511A; N39.0 (1) UTI (urinary tract infection) Hematuria presence: without hematuria Urinary tract infection type: acute cystitis Qualified Code(s): N30.00 - Acute cystitis without hematuria (2) Diabetes Diabetes mellitus complication status: without complication Diabetes mellitus residential insulin use: with intermediate project manager use Diabetes mellitus type: type 2 Qualified Code(s): E11.9 - Type 2 diabetes mellitus without complications; Z79.4 - correction (current) use of insulin (3) Depression Active/Remission status: remission status unspecified Depression Type: major depressive disorder Major depression recurrence: single episode Qualified Code(s): F32.9 - Major depressive disorder, single episode, unspecified (4) Hypothyroidism Hypothyroidism type: unspecified Qualified Code(s): E03.9 - Hypothyroidism, unspecified
[2019-04-13] MEDS: LEVOTHYROXINE SODIUM 50 MCG TABLET PO SCH (06:19)
[2019-04-13 07:04] LABS: Basophils # (auto) 0.04 K/uL (0-0.2); Basophils % (auto) 0.2 %; Eosinophils % (auto) 4.7 %; Hematocrit (blood only) 26.2 % (42-52); Hemoglobin 8.4 g/dL (14.0-18.0); Immature Granulocytes # (auto) 0.33 K/uL (0.00-0.02); Immature Granulocytes % (auto) 1.9 %; Lymphocytes % (auto) 11.7 %; Mean Corpuscular Hemoglobin 26.4 pg (25-34); Mean Corpuscular Hgb Conc 32.1 g/dL (32-36); Mean Corpuscular Volume 82.4 fL (80-100); Mean Platelet Volume 9.7 fL (7.4-10.4); Monocytes % (auto) 5.9 %; Neutrophils # (auto) 12.92 K/uL (1.4-6.5); Neutrophils % (auto) 75.6 %; Platelet Count 414 K/uL (130-400); RDW Coefficient of Variation 21.6 % (11.5-14.5); RDW Standard Deviation 64.9 fL (36.4-46.3); Red Blood Count 3.18 M/uL (4.7-6.1); White Blood Count 17.09 K/uL (4.8-10.8)
[2019-04-13 07:16] LABS: INR 1.7 (0.9-1.1); Prothrombin Time 16.9 Seconds (9.0-12.0)
[2019-04-13 07:34] LABS: Anisocytosis Present; Hypochromasia Present; Tear Drop Cells 1+; Toxic Granulation 1+
[2019-04-13] MEDS: INSULIN DETEMIR FLEXPEN/FLEX TOUCH 100 UNITS/ML 3ML SQ SCH ×2 (07:37→20:56)
[2019-04-13] MEDS: FERROUS GLUCONATE 324 MG TAB PO SCH ×2 (07:38→20:56)
[2019-04-13] MEDS: SODIUM BICARBONATE 650 MG TAB PO SCH ×2 (07:38→20:57)
[2019-04-13] MEDS: CITALOPRAM 40 MG TAB PO SCH (07:38)
[2019-04-13] MEDS: LACTOBACILLUS ACIDOPHILUS (FLORANEX) TAB PO SCH (07:38)
[2019-04-13] MEDS: MULTIVITAMIN TAB PO SCH (07:38)
[2019-04-13 07:52] LABS: Albumin Level 2.3 gm/dl (3.4-5.0); Calcium 8.4 mg/dl (8.5-10.1); Creatinine Clr Calc Pharmacy 16.4 ml/min; Est GFR (African American) 12.9; Est GFR (Non-African American) 11.1; Phosphorus 5.1 mg/dl (2.5-4.9); Potassium 4.4 mmol/L (3.5-5.1)
--- NOTE | 2019-04-13 10:10 | Nephrology Progress Note ---
Date of Service April 13, 2019 Assessment & Plan (1) Acute kidney injury: Luis has stage 4 chronic kidney disease with baseline creatinine around 3.0, in the setting of obstructive uropathy. Admitted to the hospital with UTI requiring IV antibiotic. On admission use found to have acute kidney injury creatinine 5.0, electrolyte acceptable. Renal function relatively stable. Currently on IV antibiotic and IV fluid. He is overall feeling well, otherwise asymptomatic and hemodynamically stable. No uremic symptom. Has been having decent urine output. Blood pressure well controlled. Renal function and electrolyte acceptable. Phos high --start on Tums 1 tab TIDM --monitor renal function with daily renal panel, electrolyte currently acceptable, no indication for renal replacement therapy. --received Epogen 30757 units x1 dose on 04/12/19 and continue on oral iron --continue on sodium bicarbonate 650 mg twice a day --dose medications for GFR less than 30 Will follow (2) Chronic kidney disease, stage 4 (severe): (3) UTI (urinary tract infection): (4) Elevated INR: (5) Anemia: (6) Paraplegia: Terri Smith was seen and examined this morning. Awake alert, feeling well and denies any specific symptoms. Appetite decent.. BP stable. UO decent. Renal function and electrolyte stable. Review of Systems Review of Systems: All systems reviewed & are unremarkable except as noted in HPI & below Physical Exam Constitutional: WD/WN, vitals as above no acute distress Respiratory: normal respiratory effort, lungs clear to auscultation Cardiovascular: Rate/Rhythm: regular rate and regular rhythm Heart Sounds: normal S1 and normal S2 Extremities: + edema Skin: + nails dystrophic; no rashes Neurologic: not confused paraplegic. Psychiatric: A+Ox3, euthymic affect Results & Data Vital Signs (Past 12 Hours) Vital Signs Temp Pulse Resp BP Pulse Ox 04/13/19 07:17 36.4 C L 59 L 16 130/71 95 04/12/19 23:00 36.5 C 70 18 136/70 98 PG Care Time/CCT Total # of Minutes Spent Total Time Spent with Patient: Total time spent is greater than 50% in coordination of care (as documented) at patient's floor/unit and/or counseling patient: Coding Level of Care Code 04714 Subseq Hosp Care Lvl 3 Diagnoses Acute kidney injury N17.9 Chronic kidney disease, stage 4 (severe) N18.4 UTI (urinary tract infection) N30.00 Urinary tract infection type: acute cystitis Hematuria presence: without hematuria Elevated INR R79.1 Anemia D64.9 Anemia type: unspecified type Paraplegia G82.20 (1) UTI (urinary tract infection) Urinary tract infection type: acute cystitis Hematuria presence: without hematuria Qualified Code(s): N30.00 - Acute cystitis without hematuria (2) Anemia Anemia type: unspecified type Qualified Code(s): D64.9 - Anemia, unspecified
[2019-04-13] MEDS: PIPERACILLIN/TAZOBACTAM 3.375 GM in DEXTROSE 5% 100 ML IV SCH ×2 (11:33→23:53)
[2019-04-13] MEDS: CALCIUM CARBONATE 500 MG CHEWABLE TAB PO SCH ×2 (11:33→17:37)
[2019-04-13] MEDS ORDERED: WARFARIN SOD 4 MG TAB PO SCH (16:00)
--- NOTE | 2019-04-13 22:52 | Hospitalist Progress Note ---
Date of Service April 13, 2019 Assessment & Plan (1) UTI (urinary tract infection): Patient with chronic indwelling Ch presenting with acute UTI. Culture from 04/06/19 +Klebsiella PNA and Pseudomonas aeruginosa. Patient previously being treated with Bactrim continue Zosyn, WBC down to 17k, repeat tomorrow, no fever, vitals stable (2) Elevated INR: INR = 9.5, repeat 7.9. Slight bleeding from a skin tear on his back. Possibly secondary to effects of Bactrim. Last dose of Coumadin was Sunday 04/09 -Vitamin K 5mg po x 1 dose on admission -Repeat INR down to 1.7 discussed using Xarelto with the patient, would depend on renal recovery cost would be $47/month, he will consider it (3) CKD (chronic kidney disease) stage 4, GFR 15-29 ml/min: CKD with baseline Cr of 2.78, Cr up to 4.98 at time of admission. Possibly secondary to volume contraction, medication effects from Bactrim. Patient with adequate UOP. K stable represents LATOYA on CKD stage IV Cr still elevated at 4.9, basically no change patient is drinking well, making adequate urine, no need for IV fluids repeat BMP in the morning -Continue sodium bicarbonate 650mg po BID -Continue PO iron and Aranesp for AOCD Dr. Moreno following patient would not be interested in HD if it would be needed (4) Depression: Chronic. Stable -Continue Celexa 40mg po daily (5) Hypothyroidism: Chronic -Continue Synthroid 50mcg po daily (6) Chronic indwelling Ch catheter: UTI management as above (7) History of DVT (deep vein thrombosis): Patient on coumadin anticoagulation - see above -Continue to hold Coumadin -INR is 1.7 today again, discussed changing to NOAC since he gets supratherapeutic INR (8) Diabetes: Chronic. -Continue Levemir 10u qM and 20u qPM -ISS monitor for hypoglycemia, no episodes today (9) Paraplegia: Noted -Frequent turning and wound care (10) Acute kidney injury: LATOYA on CKD stage IV associated with CA UTI see above, continue to encourage PO intake, monitor UO K is stable repeat BMP in the morning (11) Catheter-associated urinary tract infection: continue Zosyn for time being will need 2 week course due to ch catheter plan for PICC, likely change to Cefepime for ease of dosing Admission and Anticipated Discharge Date Admission Date: April 11, 2019 Anticipated date of discharge: 04/15/19 Subjective patient doing well today, no new issues Cr down very slightly, continues to make adequate urine d/w Dr. Moreno, appreciate her input updated at the bedside we discussed using Xarelto as alternative, his INR has been high a few times cost of Xarelto would be $47/month d/w , patient will be set up for home health, home IV, family comfortable with this will plan for PICC tomorrow Review of Systems Review of Systems: All systems reviewed & are unremarkable except as noted in HPI & below Physical Exam Constitutional: WD/WN, vitals as above Eyes: PERRL, conjunctivae normal, anicteric sclerae ENMT: external ear and nose normal, oropharynx normal Neck: trachea midline, no thyromegaly Respiratory: normal respiratory effort, lungs clear to auscultation Cardiovascular: RRR, no murmur, no edema Gastrointestinal (Abdomen): normal bowel sounds, soft, nontender, no hepatosplenomegaly Musculoskeletal: Head/Neck/Chest: normocephalic and head atraumatic Extremities: strength 5/5 throughout (upper extremities, lower extremities paralyzed) and + muscle atrophy (lower extremities); no cyanosis, no clubbing and no petechiae Skin: no rashes, warm and dry Neurologic: CN's II-XI intact bilaterally and awake; + does not move all extremities (lower extremity paralysis) Psychiatric: A+Ox3, euthymic affect Lymphatic: no cervical or axillary lymphadenopathy Results & Data ([facility]) Vital Signs (Past 12 Hours) Vital Signs Temp Pulse BP 04/13/19 14:28 36.4 C L 74 128/75 Laboratory Results Laboratory Results - last 24 hr 04/13/19 04/13/19 04/13/19 06:39 06:39 06:39 WBC 17.09 H RBC 3.18 L Hgb 8.4 L Hct 26.2 L MCV 82.4 MCH 26.4 MCHC 32.1 RDW Std Deviation 64.9 H RDW Coeff of Marvin 21.6 H Plt Count 414 H MPV 9.7 Immature Gran % (Auto) 1.9 Neut % (Auto) 75.6 Lymph % (Auto) 11.7 [place] % (Auto) 5.9 Eos % (Auto) 4.7 Baso % (Auto) 0.2 Immature Gran # (Auto) 0.33 H Neut # (Auto) 12.92 H Lymph # (Auto) 2.00 [place] # (Auto) 1.00 H Eos # (Auto) 0.80 H Baso # (Auto) 0.04 Toxic Granulation 1+ Hypochromasia Present Anisocytosis Present Tear Drop Cells 1+ PT 16.9 H INR 1.7 H Sodium 133 L Potassium 4.4 Chloride 104 Carbon Dioxide 22 Anion Gap 7.0 BUN 65 H Creatinine 4.95 H* Est Cr Clr Drug Dosing 16.4 Est GFR ( Amer) 12.9 Est GFR (Non-Af Amer) 11.1 BUN/Creatinine Ratio 13.0 Glucose 67 L POC Glucose Calcium 8.4 L Phosphorus 5.1 H Albumin 2.3 L 04/13/19 04/13/19 04/13/19 07:30 11:30 16:35 WBC RBC Hgb Hct MCV MCH MCHC RDW Std Deviation RDW Coeff of Marvin Plt Count MPV Immature Gran % (Auto) Neut % (Auto) Lymph % (Auto) [place] % (Auto) Eos % (Auto) Baso % (Auto) Immature Gran # (Auto) Neut # (Auto) Lymph # (Auto) [place] # (Auto) Eos # (Auto) Baso # (Auto) Toxic Granulation Hypochromasia Anisocytosis Tear Drop Cells PT INR Sodium Potassium Chloride Carbon Dioxide Anion Gap BUN Creatinine Est Cr Clr Drug Dosing Est GFR ( Amer) Est GFR (Non-Af Amer) BUN/Creatinine Ratio Glucose POC Glucose 79 208 H 237 H Calcium Phosphorus Albumin 04/13/19 20:20 WBC RBC Hgb Hct MCV MCH MCHC RDW Std Deviation RDW Coeff of Marvin Plt Count MPV Immature Gran % (Auto) Neut % (Auto) Lymph % (Auto) [place] % (Auto) Eos % (Auto) Baso % (Auto) Immature Gran # (Auto) Neut # (Auto) Lymph # (Auto) [place] # (Auto) Eos # (Auto) Baso # (Auto) Toxic Granulation Hypochromasia Anisocytosis Tear Drop Cells PT INR Sodium Potassium Chloride Carbon Dioxide Anion Gap BUN Creatinine Est Cr Clr Drug Dosing Est GFR ( Amer) Est GFR (Non-Af Amer) BUN/Creatinine Ratio Glucose POC Glucose 291 H Calcium Phosphorus Albumin Medications Administered Current Inpatient Medications Acetaminophen (Tylenol) 650 mg PO Q4H PRN PRN Reason: pain/fever Stop: 05/11/19 15:07 Calcium Carbonate (Tums) 500 mg PO TIDM [facility] Stop: 05/13/19 11:59 Last Admin: 04/13/19 17:37 Dose: 500 mg Documented by: Citalopram Hydrobromide (Celexa) 40 mg PO DAILY [facility] Stop: 05/12/19 08:59 Last Admin: 04/13/19 07:38 Dose: 40 mg Documented by: Dextrose (Dextrose 50%) 25 - 50 ml IV UD PRN; Protocol PRN Reason: Hypoglycemia Protocol Stop: 05/11/19 15:07 Docusate Sodium (Colace) 100 mg PO BID PRN PRN Reason: Constipation Stop: 05/11/19 15:16 Ferrous Gluconate (Ferrous Gluconate) 324 mg PO BID [facility] Stop: 05/11/19 20:59 Last Admin: 04/13/19 20:56 Dose: 324 mg Documented by: Glucagon (Glucagen) 1 mg SQ UD PRN; Protocol PRN Reason: Hypoglycemia Protocol Stop: 05/11/19 15:07 Glucose (Dex4 Glucose) 4 - 8 tabs PO UD PRN; Protocol PRN Reason: Hypoglycemia Protocol Stop: 05/11/19 15:07 Glucose (Glucose 40%) 15 - 30 gm PO UD PRN; Protocol PRN Reason: Hypoglycemia Protocol Stop: 05/11/19 15:07 Piperacillin Sod/Tazobactam (Sod 3.375 gm/ Dextrose) 115 mls @ 28.75 mls/hr IV Q12H [facility]; Protocol Stop: 04/22/19 00:00 Last Infusion: 04/13/19 15:35 Dose: Infused Documented by: Insulin Detemir (Levemir Flextouch) 20 units SQ QPM [facility] Stop: 05/11/19 20:59 Last Admin: 04/13/19 20:56 Dose: 20 units Documented by: Insulin Detemir (Levemir Flextouch) 10 units SQ QAM [facility] Stop: 05/12/19 08:59 Last Admin: 04/13/19 07:37 Dose: 10 units Documented by: Lactobacillus Acidophilus (Floranex) 4 tab PO DAILY [facility] Stop: 05/12/19 08:59 Last Admin: 04/13/19 07:38 Dose: 4 tab Documented by: Levothyroxine Sodium (Synthroid) 50 mcg PO DAILYBB [facility] Stop: 05/12/19 06:29 Last Admin: 04/13/19 06:19 Dose: 50 mcg Documented by: Miscellaneous (Carbohydrates For Hypoglycemia) 15 - 30 gm PO UD PRN PRN Reason: Hypoglycemia Protocol Stop: 05/11/19 15:07 Miscellaneous Information (Consult) 1 ea N/A UD PRN PRN Reason: Consult Stop: 05/11/19 15:13 Multivitamins (Multivitamin Tab) 1 tab PO QAM [facility] Stop: 05/12/19 08:59 Last Admin: 04/13/19 07:38 Dose: 1 tab Documented by: Ondansetron HCl (Zofran) 4 mg IV Q6H PRN PRN Reason: Nausea Stop: 05/11/19 15:07 Sodium Bicarbonate (Sodium Bicarbonate) 650 mg PO BID [facility] Stop: 05/11/19 20:59 Last Admin: 04/13/19 20:57 Dose: 650 mg Documented by: Warfarin Sodium (Coumadin) 6 mg PO SuMoWeFrSa@1600 [facility] Stop: 05/14/19 15:59 Warfarin Sodium (Coumadin) 4 mg PO TuTh@1600 [facility] Stop: 05/13/19 15:59 Last Admin: 04/13/19 16:46 Dose: 4 mg Documented by: PG Care Time/CCT Total # of Minutes Spent Total Time Spent: 38 Total Time Spent with Patient: Total time spent is greater than 50% in coordination of care (as documented) at patient's floor/unit and/or counseling patient: Coding Level of Care Code 51308 Subseq Hosp Care Lvl 3 Diagnoses UTI (urinary tract infection) N30.00 Hematuria presence: without hematuria Urinary tract infection type: acute cystitis Elevated INR R79.1 CKD (chronic kidney disease) stage 4, GFR 15-29 ml/min N18.4 Depression F32.9 Active/Remission status: remission status unspecified Depression Type: major depressive disorder Major depression recurrence: single episode Hypothyroidism E03.9 Hypothyroidism type: unspecified Chronic indwelling Ch catheter Z96.0 History of DVT (deep vein thrombosis) Z86.718 Diabetes E11.9; Z79.4 Diabetes mellitus complication status: without complication Diabetes mellitus usp insulin use: with inspector automatic typewriter use Diabetes mellitus type: type 2 Paraplegia G82.20 Acute kidney injury N17.9 Catheter-associated urinary tract infection T83.511A; N39.0 (1) UTI (urinary tract infection) Hematuria presence: without hematuria Urinary tract infection type: acute cystitis Qualified Code(s): N30.00 - Acute cystitis without hematuria (2) Diabetes Diabetes mellitus complication status: without complication Diabetes mellitus usp insulin use: with inspector automatic typewriter use Diabetes mellitus type: type 2 Qualified Code(s): E11.9 - Type 2 diabetes mellitus without complications; Z79.4 - custodial (current) use of insulin (3) Depression Active/Remission status: remission status unspecified Depression Type: major depressive disorder Major depression recurrence: single episode Qualified Code(s): F32.9 - Major depressive disorder, single episode, unspecified (4) Hypothyroidism Hypothyroidism type: unspecified Qualified Code(s): E03.9 - Hypothyroidism, unspecified
[2019-04-14] MEDS: LEVOTHYROXINE SODIUM 50 MCG TABLET PO SCH (05:59)
[2019-04-14 06:14] LABS: Hematocrit (blood only) 26.4 % (42-52); Hemoglobin 8.5 g/dL (14.0-18.0); Mean Corpuscular Hemoglobin 26.6 pg (25-34); Mean Corpuscular Hgb Conc 32.2 g/dL (32-36); Mean Corpuscular Volume 82.5 fL (80-100); Platelet Count 408 K/uL (130-400); RDW Coefficient of Variation 21.5 % (11.5-14.5); RDW Standard Deviation 65.2 fL (36.4-46.3); White Blood Count 15.64 K/uL (4.8-10.8)
[2019-04-14 06:25] LABS: INR 1.4 (0.9-1.1)
[2019-04-14 06:58] LABS: Albumin Level 2.4 gm/dl (3.4-5.0); BUN Creatinine Ratio 12.1 (10-20); Calcium 8.7 mg/dl (8.5-10.1); Creatinine Clr Calc Pharmacy 15.9 ml/min; Est GFR (African American) 12.5; Est GFR (Non-African American) 10.8; Potassium 4.1 mmol/L (3.5-5.1)
[2019-04-14] MEDS: FERROUS GLUCONATE 324 MG TAB PO SCH ×2 (07:59→20:54)
[2019-04-14] MEDS: CITALOPRAM 40 MG TAB PO SCH (07:59)
[2019-04-14] MEDS: SODIUM BICARBONATE 650 MG TAB PO SCH ×2 (07:59→20:54)
[2019-04-14] MEDS: INSULIN DETEMIR FLEXPEN/FLEX TOUCH 100 UNITS/ML 3ML SQ SCH ×2 (07:59→20:53)
[2019-04-14] MEDS: MULTIVITAMIN TAB PO SCH (07:59)
[2019-04-14] MEDS: LACTOBACILLUS ACIDOPHILUS (FLORANEX) TAB PO SCH (07:59)
[2019-04-14] MEDS: CALCIUM CARBONATE 500 MG CHEWABLE TAB PO SCH ×3 (07:59→17:33)
--- NOTE | 2019-04-14 10:49 | Nephrology Progress Note ---
Date of Service April 14, 2019 Assessment & Plan (1) Acute kidney injury: Luis has stage 4 chronic kidney disease with baseline creatinine around 3.0, in the setting of obstructive uropathy. Admitted to the hospital with UTI requiring IV antibiotic. On admission use found to have acute kidney injury creatinine 5.0, electrolyte acceptable. Renal function relatively stable. Currently on IV antibiotic and IV fluid. He is overall feeling well, otherwise asymptomatic and hemodynamically stable. No uremic symptom. Has been having decent urine output. Blood pressure well controlled. Renal function and electrolyte acceptable. Phos high --continue on Tums 1 tab TIDM, sodium bicarbonate 650 mg twice a day --monitor renal function with daily renal panel, electrolyte currently acceptable, no indication for renal replacement therapy. --received Epogen 20178 units x1 dose on 04/12/19 and continue on oral iron --dose medications for GFR less than 30 --OK to be DC when medically stable, please schedule out pt lab monitoring and f/u with Dr. Wallis in CKD clinic in 2-4 weeks after DC. Will follow (2) Chronic kidney disease, stage 4 (severe): (3) UTI (urinary tract infection): (4) Elevated INR: (5) Anemia: (6) Paraplegia: Terri Smith was seen and examined this morning. Awake alert, feeling well and denies any specific symptoms. Appetite decent.. BP stable. UO decent. Renal function and electrolyte stable. Review of Systems Review of Systems: All systems reviewed & are unremarkable except as noted in HPI & below Physical Exam Constitutional: well developed and well nourished; no acute distress Respiratory: normal respiratory effort, lungs clear to auscultation Cardiovascular: RRR, no murmur, no edema Neurologic: awake; not confused paraplegic. Psychiatric: A+Ox3, euthymic affect Results & Data Vital Signs (Past 12 Hours) Vital Signs Temp Pulse Resp BP Pulse Ox 04/14/19 07:13 36.4 C L 63 18 171/82 H 98 04/13/19 23:00 36.7 C 89 18 148/80 H 98 PG Care Time/CCT Total # of Minutes Spent Total Time Spent with Patient: Total time spent is greater than 50% in coordination of care (as documented) at patient's floor/unit and/or counseling patient: Coding Level of Care Code 08941 Subseq Hosp Care Lvl 3 Diagnoses Acute kidney injury N17.9 Chronic kidney disease, stage 4 (severe) N18.4 UTI (urinary tract infection) N30.00 Urinary tract infection type: acute cystitis Hematuria presence: without hematuria Elevated INR R79.1 Anemia D64.9 Anemia type: unspecified type Paraplegia G82.20 (1) UTI (urinary tract infection) Urinary tract infection type: acute cystitis Hematuria presence: without hematuria Qualified Code(s): N30.00 - Acute cystitis without hematuria (2) Anemia Anemia type: unspecified type Qualified Code(s): D64.9 - Anemia, unspecified
[2019-04-14] MEDS: PIPERACILLIN/TAZOBACTAM 3.375 GM in DEXTROSE 5% 100 ML IV SCH (11:32)
--- NOTE | 2019-04-14 14:03 | Hospitalist Progress Note ---
Date of Service April 14, 2019 Assessment & Plan (1) UTI (urinary tract infection): Patient with chronic indwelling Ch presenting with acute UTI. Culture from 04/06/19 +Klebsiella PNA and Pseudomonas aeruginosa. Patient previously being treated with Bactrim WBC down to 15k, no fever, vitals stable will change to Cefepime to plan for home IV treatment (2) Elevated INR: INR = 9.5, repeat 7.9. Slight bleeding from a skin tear on his back. Possibly secondary to effects of Bactrim. Last dose of Coumadin was Sunday 04/09 -Vitamin K 5mg po x 1 dose on admission -Repeat INR down to 1.4 discussed using Xarelto with the patient, would depend on renal recovery cost would be $47/month, he will consider it (3) CKD (chronic kidney disease) stage 4, GFR 15-29 ml/min: CKD with baseline Cr of 2.78, Cr up to 4.98 at time of admission. Possibly secondary to volume contraction, medication effects from Bactrim. Patient with adequate UOP. K stable represents LATOYA on CKD stage IV Cr still elevated at 5.0, basically no change patient is drinking well, continues to make a lot of urine, no need for IV fluids repeat BMP in the morning -Continue sodium bicarbonate 650mg po BID -Continue PO iron and Aranesp for AOCD Dr. Moreno following patient would not be interested in HD if it would be needed (4) Depression: Chronic. Stable -Continue Celexa 40mg po daily (5) Hypothyroidism: Chronic -Continue Synthroid 50mcg po daily (6) Chronic indwelling Ch catheter: UTI management as above exchanged ch on 04/14 (7) History of DVT (deep vein thrombosis): Patient on coumadin anticoagulation - see above -Continue to hold Coumadin -INR is 1.7 today again, discussed changing to NOAC since he gets supratherapeutic INR (8) Diabetes: Chronic. -Continue Levemir 10u qM and 20u qPM -ISS monitor for hypoglycemia, no episodes today (9) Paraplegia: Noted -Frequent turning and wound care (10) Acute kidney injury: LATOYA on CKD stage IV associated with CA UTI see above, continue to encourage PO intake, monitor UO K is stable repeat BMP in the morning (11) Catheter-associated urinary tract infection: change to Cefepime will need 2 week course due to ch catheter plan for US guided IV since it will be short time frame Admission and Anticipated Discharge Date Admission Date: April 11, 2019 Anticipated date of discharge: 04/15/19 Subjective patient doing well, no issues over night eating well, making adequate urine from ch no nausea, no fever WBC down slighty to 15k, Cr is up to 5.0 from 4.9 INR is 1.4 discussed getting US guided IV for home IV antibiotics he signed consent for PICC if needed will exchange ch catheter today Review of Systems Review of Systems: All systems reviewed & are unremarkable except as noted in HPI & below Physical Exam Constitutional: WD/WN, vitals as above Eyes: PERRL, conjunctivae normal, anicteric sclerae ENMT: external ear and nose normal, oropharynx normal Neck: trachea midline, no thyromegaly Respiratory: normal respiratory effort, lungs clear to auscultation Cardiovascular: RRR, no murmur, no edema Gastrointestinal (Abdomen): normal bowel sounds, soft, nontender, no hepatosplenomegaly Musculoskeletal: Head/Neck/Chest: normocephalic and head atraumatic Extremities: strength 5/5 throughout (upper extremities, lower extremities paralyzed) and + muscle atrophy (lower extremities); no cyanosis, no clubbing and no petechiae Skin: no rashes, warm and dry Neurologic: CN's II-XI intact bilaterally and awake; + does not move all extremities (lower extremity paralysis) Psychiatric: A+Ox3, euthymic affect Lymphatic: no cervical or axillary lymphadenopathy Results & Data ([facility]) Vital Signs (Past 12 Hours) Vital Signs Temp Pulse Resp BP Pulse Ox 04/14/19 07:13 36.4 C L 63 18 171/82 H 98 Laboratory Results Laboratory Results - last 24 hr 04/13/19 04/13/19 04/14/19 16:35 20:20 05:31 WBC RBC Hgb Hct MCV MCH MCHC RDW Std Deviation RDW Coeff of Marvin Plt Count MPV PT INR Sodium 136 Potassium 4.1 Chloride 106 Carbon Dioxide 21 Anion Gap 9.0 BUN 61 H Creatinine 5.09 H* Est Cr Clr Drug Dosing 15.9 Est GFR ( Amer) 12.5 Est GFR (Non-Af Amer) 10.8 BUN/Creatinine Ratio 12.1 Glucose 146 H POC Glucose 237 H 291 H Calcium 8.7 Phosphorus 5.0 H Albumin 2.4 L 04/14/19 04/14/19 04/14/19 05:31 05:31 07:44 WBC 15.64 H RBC 3.20 L Hgb 8.5 L Hct 26.4 L MCV 82.5 MCH 26.6 MCHC 32.2 RDW Std Deviation 65.2 H RDW Coeff of Marvin 21.5 H Plt Count 408 H MPV 10.0 PT 14.0 H INR 1.4 H Sodium Potassium Chloride Carbon Dioxide Anion Gap BUN Creatinine Est Cr Clr Drug Dosing Est GFR ( Amer) Est GFR (Non-Af Amer) BUN/Creatinine Ratio Glucose POC Glucose 149 H Calcium Phosphorus Albumin 04/14/19 11:30 WBC RBC Hgb Hct MCV MCH MCHC RDW Std Deviation RDW Coeff of Marvin Plt Count MPV PT INR Sodium Potassium Chloride Carbon Dioxide Anion Gap BUN Creatinine Est Cr Clr Drug Dosing Est GFR ( Amer) Est GFR (Non-Af Amer) BUN/Creatinine Ratio Glucose POC Glucose 254 H Calcium Phosphorus Albumin Medications Administered Current Inpatient Medications Acetaminophen (Tylenol) 650 mg PO Q4H PRN PRN Reason: pain/fever Stop: 05/11/19 15:07 Calcium Carbonate (Tums) 500 mg PO TIDM [facility] Stop: 05/13/19 11:59 Last Admin: 04/14/19 11:32 Dose: 500 mg Documented by: Citalopram Hydrobromide (Celexa) 40 mg PO DAILY [facility] Stop: 05/12/19 08:59 Last Admin: 04/14/19 07:59 Dose: 40 mg Documented by: Dextrose (Dextrose 50%) 25 - 50 ml IV UD PRN; Protocol PRN Reason: Hypoglycemia Protocol Stop: 05/11/19 15:07 Docusate Sodium (Colace) 100 mg PO BID PRN PRN Reason: Constipation Stop: 05/11/19 15:16 Ferrous Gluconate (Ferrous Gluconate) 324 mg PO BID [facility] Stop: 05/11/19 20:59 Last Admin: 04/14/19 07:59 Dose: 324 mg Documented by: Glucagon (Glucagen) 1 mg SQ UD PRN; Protocol PRN Reason: Hypoglycemia Protocol Stop: 05/11/19 15:07 Glucose (Dex4 Glucose) 4 - 8 tabs PO UD PRN; Protocol PRN Reason: Hypoglycemia Protocol Stop: 05/11/19 15:07 Glucose (Glucose 40%) 15 - 30 gm PO UD PRN; Protocol PRN Reason: Hypoglycemia Protocol Stop: 05/11/19 15:07 Piperacillin Sod/Tazobactam (Sod 3.375 gm/ Dextrose) 115 mls @ 28.75 mls/hr IV Q12H [facility]; Protocol Stop: 04/22/19 00:00 Last Admin: 04/14/19 11:32 Dose: 28.8 mls/hr Documented by: Insulin Detemir (Levemir Flextouch) 20 units SQ QPM [facility] Stop: 05/11/19 20:59 Last Admin: 04/13/19 20:56 Dose: 20 units Documented by: Insulin Detemir (Levemir Flextouch) 10 units SQ QAM [facility] Stop: 05/12/19 08:59 Last Admin: 04/14/19 07:59 Dose: 10 units Documented by: Lactobacillus Acidophilus (Floranex) 4 tab PO DAILY [facility] Stop: 05/12/19 08:59 Last Admin: 04/14/19 07:59 Dose: 4 tab Documented by: Levothyroxine Sodium (Synthroid) 50 mcg PO DAILYBB [facility] Stop: 05/12/19 06:29 Last Admin: 04/14/19 05:59 Dose: 50 mcg Documented by: Miscellaneous (Carbohydrates For Hypoglycemia) 15 - 30 gm PO UD PRN PRN Reason: Hypoglycemia Protocol Stop: 05/11/19 15:07 Miscellaneous Information (Consult) 1 ea N/A UD PRN PRN Reason: Consult Stop: 05/11/19 15:13 Multivitamins (Multivitamin Tab) 1 tab PO QAM [facility] Stop: 05/12/19 08:59 Last Admin: 04/14/19 07:59 Dose: 1 tab Documented by: Ondansetron HCl (Zofran) 4 mg IV Q6H PRN PRN Reason: Nausea Stop: 05/11/19 15:07 Sodium Bicarbonate (Sodium Bicarbonate) 650 mg PO BID [facility] Stop: 05/11/19 20:59 Last Admin: 04/14/19 07:59 Dose: 650 mg Documented by: Warfarin Sodium (Coumadin) 6 mg PO SuMoWeFrSa@1600 [facility] Stop: 05/14/19 15:59 Warfarin Sodium (Coumadin) 4 mg PO TuTh@1600 [facility] Stop: 05/13/19 15:59 Last Admin: 04/13/19 16:46 Dose: 4 mg Documented by: PG Care Time/CCT Total # of Minutes Spent Total Time Spent with Patient: Total time spent is greater than 50% in coordination of care (as documented) at patient's floor/unit and/or counseling patient: Coding Level of Care Code 75580 Subseq Hosp Care Lvl 2 Diagnoses UTI (urinary tract infection) N30.00 Hematuria presence: without hematuria Urinary tract infection type: acute cystitis Elevated INR R79.1 CKD (chronic kidney disease) stage 4, GFR 15-29 ml/min N18.4 Depression F32.9 Active/Remission status: remission status unspecified Depression Type: major depressive disorder Major depression recurrence: single episode Hypothyroidism E03.9 Hypothyroidism type: unspecified Chronic indwelling Ch catheter Z96.0 History of DVT (deep vein thrombosis) Z86.718 Diabetes E11.9; Z79.4 Diabetes mellitus complication status: without complication Diabetes mellitus half-way insulin use: with half-way use Diabetes mellitus type: type 2 Paraplegia G82.20 Acute kidney injury N17.9 Catheter-associated urinary tract infection T83.511A; N39.0 (1) UTI (urinary tract infection) Hematuria presence: without hematuria Urinary tract infection type: acute cystitis Qualified Code(s): N30.00 - Acute cystitis without hematuria (2) Diabetes Diabetes mellitus complication status: without complication Diabetes mellitus terminal superintendent insulin use: with half-way use Diabetes mellitus type: type 2 Qualified Code(s): E11.9 - Type 2 diabetes mellitus without complications; Z79.4 - superintendent terminal (current) use of insulin (3) Depression Active/Remission status: remission status unspecified Depression Type: major depressive disorder Major depression recurrence: single episode Qualified Code(s): F32.9 - Major depressive disorder, single episode, unspecified (4) Hypothyroidism Hypothyroidism type: unspecified Qualified Code(s): E03.9 - Hypothyroidism, unspecified
[2019-04-14] MEDS: WARFARIN SOD 6 MG TAB PO SCH (17:00)
[2019-04-14] MEDS: CEFEPIME 1,000 MG in SYRINGE 0 ML IV SCH (20:52)
[2019-04-14] MEDS ORDERED: DEXTROSE 50% 50 ML SYRINGE IV PRN (21:45)
[2019-04-14] MEDS ORDERED: GLUCOSE 40% GEL 15 GM TUBE PO PRN (21:45)
[2019-04-14] MEDS ORDERED: GLUCAGON FOR INJ 1 MG VIAL SQ PRN (21:45)
[2019-04-14] MEDS ORDERED: GLUCOSE 10 TABS/TUBE PO PRN (21:45)
[2019-04-14] MEDS ORDERED: CARBOHYDRATES FOR HYPOGLYCEMIA PO PRN (21:45)
[2019-04-15] MEDS: LEVOTHYROXINE SODIUM 50 MCG TABLET PO SCH (06:09)
[2019-04-15 06:17] LABS: Hemoglobin 8.4 g/dL (14.0-18.0); Mean Corpuscular Hemoglobin 26.8 pg (25-34); Mean Corpuscular Hgb Conc 32.3 g/dL (32-36); Mean Corpuscular Volume 82.8 fL (80-100); Mean Platelet Volume 9.4 fL (7.4-10.4); Platelet Count 383 K/uL (130-400); RDW Coefficient of Variation 21.9 % (11.5-14.5); Red Blood Count 3.14 M/uL (4.7-6.1); White Blood Count 15.98 K/uL (4.8-10.8)
[2019-04-15 06:27] LABS: INR 1.6 (0.9-1.1); Prothrombin Time 15.6 Seconds (9.0-12.0)
[2019-04-15 06:59] LABS: Albumin Level 2.2 gm/dl (3.4-5.0); BUN Creatinine Ratio 12.1 (10-20); Calcium 8.8 mg/dl (8.5-10.1); Creatinine Clr Calc Pharmacy 16.8 ml/min; Est GFR (African American) 13.3; Est GFR (Non-African American) 11.5; Phosphorus 5.1 mg/dl (2.5-4.9)
[2019-04-15] MEDS: SODIUM BICARBONATE 650 MG TAB PO SCH ×2 (08:48→21:35)
[2019-04-15] MEDS: MULTIVITAMIN TAB PO SCH (08:48)
[2019-04-15] MEDS: CITALOPRAM 40 MG TAB PO SCH (08:48)
[2019-04-15] MEDS: CALCIUM CARBONATE 500 MG CHEWABLE TAB PO SCH ×3 (08:48→17:38)
[2019-04-15] MEDS: LACTOBACILLUS ACIDOPHILUS (FLORANEX) TAB PO SCH (08:48)
[2019-04-15] MEDS: FERROUS GLUCONATE 324 MG TAB PO SCH ×2 (08:48→21:34)
[2019-04-15] MEDS: INSULIN ASPART 100 UNITS/ML 3 ML PEN SC SCH ×4 (08:53→21:49)
[2019-04-15] MEDS: INSULIN DETEMIR FLEXPEN/FLEX TOUCH 100 UNITS/ML 3ML SQ SCH ×2 (08:56→21:36)
--- NOTE | 2019-04-15 13:03 | Hospitalist Progress Note ---
Date of Service April 15, 2019 Assessment & Plan (1) UTI (urinary tract infection): Patient with chronic indwelling Ch presenting with acute UTI. Culture from 04/06/19 +Klebsiella PNA and Pseudomonas aeruginosa. Patient previously being treated with Bactrim WBC stable at 15k, no fever, vitals stable will change to Cefepime to plan for home IV treatment ch exchanged on 04/14 (2) Elevated INR: INR = 9.5, repeat 7.9. Slight bleeding from a skin tear on his back. Possibly secondary to effects of Bactrim. Last dose of Coumadin was Sunday 04/09 -Vitamin K 5mg po x 1 dose on admission -Repeat INR down to 1.6 today discussed using Xarelto with the patient, would depend on renal recovery cost would be $47/month, he will consider it (3) CKD (chronic kidney disease) stage 4, GFR 15-29 ml/min: CKD with baseline Cr of 2.78, Cr up to 4.98 at time of admission. Possibly secondary to volume contraction, medication effects from Bactrim. Patient with adequate UOP. K stable represents LATOYA on CKD stage IV Cr down slightly to 4.8 patient is drinking well, continues to make a lot of urine, no need for IV fluids repeat BMP in the morning -Continue sodium bicarbonate 650mg po BID -Continue PO iron and Aranesp for AOCD Dr. Shen following patient would not be interested in HD if it would be needed (4) Depression: Chronic. Stable -Continue Celexa 40mg po daily (5) Hypothyroidism: Chronic -Continue Synthroid 50mcg po daily (6) Chronic indwelling Ch catheter: UTI management as above exchanged ch on 04/14 (7) History of DVT (deep vein thrombosis): Patient on coumadin anticoagulation - see above -Continue to hold Coumadin -INR is 1.6 today again, discussed changing to NOAC since he gets supratherapeutic INR (8) Diabetes: Chronic. -Continue Levemir 10u qM and 20u qPM -ISS monitor for hypoglycemia, no episodes today (9) Paraplegia: Noted -Frequent turning and wound care (10) Acute kidney injury: LATOYA on CKD stage IV associated with CA UTI see above, continue to encourage PO intake, monitor UO K is stable repeat BMP in the morning (11) Catheter-associated urinary tract infection: change to Cefepime will need 2 week course due to ch catheter plan for US guided IV since it will be short time frame Admission and Anticipated Discharge Date Admission Date: April 11, 2019 Anticipated date of discharge: 04/17/19 Subjective patient continues to do well, no complaints eating well, breathing stable, no chest pain Cr down to 4.8, electrolytes stable, making adequate urine ch was exchanged yesteray and US guided IV was placed by IV team discussed that medically he will be ready to go home with home IV medications once Cr improves further Dr. Shen saw patient, appreciate his input Review of Systems Review of Systems: All systems reviewed & are unremarkable except as noted in HPI & below Physical Exam Constitutional: WD/WN, vitals as above Eyes: PERRL, conjunctivae normal, anicteric sclerae ENMT: external ear and nose normal, oropharynx normal Neck: trachea midline, no thyromegaly Respiratory: normal respiratory effort, lungs clear to auscultation Cardiovascular: RRR, no murmur, no edema Gastrointestinal (Abdomen): normal bowel sounds, soft, nontender, no hepatosplenomegaly Musculoskeletal: Head/Neck/Chest: normocephalic and head atraumatic E xtremities: strength 5/5 throughout (upper extremities, lower extremities paralyzed) and + muscle atrophy (lower extremities); no cyanosis, no clubbing and no petechiae Skin: no rashes, warm and dry Neurologic: CN's II-XI intact bilaterally and awake; + does not move all extremities (lower extremity paralysis) Psychiatric: A+Ox3, euthymic affect Lymphatic: no cervical or axillary lymphadenopathy Results & Data ([facility]) Vital Signs (Past 12 Hours) Vital Signs Temp Pulse Resp BP Pulse Ox 04/15/19 07:18 36.5 C 80 18 124/72 100 Laboratory Results Laboratory Results - last 24 hr 04/14/19 04/14/19 04/14/19 17:22 17:25 20:32 WBC RBC Hgb Hct MCV MCH MCHC RDW Std Deviation RDW Coeff of Marvin Plt Count MPV PT INR Sodium Potassium Chloride Carbon Dioxide Anion Gap BUN Creatinine Est Cr Clr Drug Dosing Est GFR ( Amer) Est GFR (Non-Af Amer) BUN/Creatinine Ratio Glucose POC Glucose 305 H* 291 H 311 H* Calcium Phosphorus Albumin 04/14/19 04/15/19 04/15/19 20:33 06:03 06:03 WBC 15.98 H RBC 3.14 L Hgb 8.4 L Hct 26.0 L MCV 82.8 MCH 26.8 MCHC 32.3 RDW Std Deviation 66.0 H RDW Coeff of Marvin 21.9 H Plt Count 383 MPV 9.4 PT INR Sodium 135 L Potassium 4.0 Chloride 107 Carbon Dioxide 21 Anion Gap 7.0 BUN 59 H Creatinine 4.83 H* Est Cr Clr Drug Dosing 16.8 Est GFR ( Amer) 13.3 Est GFR (Non-Af Amer) 11.5 BUN/Creatinine Ratio 12.1 Glucose 168 H POC Glucose 312 H* Calcium 8.8 Phosphorus 5.1 H Albumin 2.2 L 04/15/19 04/15/19 04/15/19 06:03 07:40 11:28 WBC RBC Hgb Hct MCV MCH MCHC RDW Std Deviation RDW Coeff of Marvin Plt Count MPV PT 15.6 H INR 1.6 H Sodium Potassium Chloride Carbon Dioxide Anion Gap BUN Creatinine Est Cr Clr Drug Dosing Est GFR ( Amer) Est GFR (Non-Af Amer) BUN/Creatinine Ratio Glucose POC Glucose 178 H 258 H Calcium Phosphorus Albumin Medications Administered Current Inpatient Medications Acetaminophen (Tylenol) 650 mg PO Q4H PRN PRN Reason: pain/fever Stop: 05/11/19 15:07 Calcium Carbonate (Tums) 500 mg PO TIDM [facility] Stop: 05/13/19 11:59 Last Admin: 04/15/19 12:48 Dose: 500 mg Documented by: Citalopram Hydrobromide (Celexa) 40 mg PO DAILY [facility] Stop: 05/12/19 08:59 Last Admin: 04/15/19 08:48 Dose: 40 mg Documented by: Dextrose (Dextrose 50%) 25 - 50 ml IV UD PRN; Protocol PRN Reason: Hypoglycemia Protocol Stop: 05/11/19 15:07 Dextrose (Dextrose 50%) 25 - 50 ml IV UD PRN; Protocol PRN Reason: Hypoglycemia Protocol Stop: 05/14/19 21:44 Docusate Sodium (Colace) 100 mg PO BID PRN PRN Reason: Constipation Stop: 05/11/19 15:16 Ferrous Gluconate (Ferrous Gluconate) 324 mg PO BID [facility] Stop: 05/11/19 20:59 Last Admin: 04/15/19 08:48 Dose: 324 mg Documented by: Glucagon (Glucagen) 1 mg SQ UD PRN; Protocol PRN Reason: Hypoglycemia Protocol Stop: 05/11/19 15:07 Glucagon (Glucagen) 1 mg SQ UD PRN; Protocol PRN Reason: Hypoglycemia Protocol Stop: 05/14/19 21:44 Glucose (Dex4 Glucose) 4 - 8 tabs PO UD PRN; Protocol PRN Reason: Hypoglycemia Protocol Stop: 05/11/19 15:07 Glucose (Glucose 40%) 15 - 30 gm PO UD PRN; Protocol PRN Reason: Hypoglycemia Protocol Stop: 05/11/19 15:07 Glucose (Dex4 Glucose) 4 - 8 tabs PO UD PRN; Protocol PRN Reason: Hypoglycemia Protocol Stop: 05/14/19 21:44 Glucose (Glucose 40%) 15 - 30 gm PO UD PRN; Protocol PRN Reason: Hypoglycemia Protocol Stop: 05/14/19 21:44 Cefepime HCl 1,000 mg/ Syringe 11.3 mls @ 5.5 mls/min IV Q24H [facility]; Protocol Stop: 04/24/19 20:59 Last Admin: 04/14/19 20:52 Dose: 5.5 mls/min Documented by: Insulin Aspart (Novolog Flexpen) 0 units SC ACHS [facility] Stop: 05/15/19 07:29 Last Admin: 04/15/19 12:48 Dose: 13 units Documented by: Insulin Detemir (Levemir Flextouch) 20 units SQ QPM [facility] Stop: 05/11/19 20:59 Last Admin: 04/14/19 20:53 Dose: 20 units Documented by: Insulin Detemir (Levemir Flextouch) 10 units SQ QAM [facility] Stop: 05/12/19 08:59 Last Admin: 04/15/19 08:56 Dose: 10 units Documented by: Lactobacillus Acidophilus (Floranex) 4 tab PO DAILY [facility] Stop: 05/12/19 08:59 Last Admin: 04/15/19 08:48 Dose: 4 tab Documented by: Levothyroxine Sodium (Synthroid) 50 mcg PO DAILYBB [facility] Stop: 05/12/19 06:29 Last Admin: 04/15/19 06:09 Dose: 50 mcg Documented by: Miscellaneous (Carbohydrates For Hypoglycemia) 15 - 30 gm PO UD PRN PRN Reason: Hypoglycemia Protocol Stop: 05/11/19 15:07 Miscellaneous (Carbohydrates For Hypoglycemia) 15 - 30 gm PO UD PRN PRN Reason: Hypoglycemia Protocol Stop: 05/14/19 21:44 Multivitamins (Multivitamin Tab) 1 tab PO QAM [facility] Stop: 05/12/19 08:59 Last Admin: 04/15/19 08:48 Dose: 1 tab Documented by: Ondansetron HCl (Zofran) 4 mg IV Q6H PRN PRN Reason: Nausea Stop: 05/11/19 15:07 Sodium Bicarbonate (Sodium Bicarbonate) 650 mg PO BID [facility] Stop: 05/11/19 20:59 Last Admin: 04/15/19 08:48 Dose: 650 mg Documented by: Warfarin Sodium (Coumadin) 6 mg PO SuMoWeFrSa@1600 [facility] Stop: 05/14/19 15:59 Last Admin: 04/14/19 17:00 Dose: 6 mg Documented by: Warfarin Sodium (Coumadin) 4 mg PO TuTh@1600 [facility] Stop: 05/13/19 15:59 Last Admin: 04/13/19 16:46 Dose: 4 mg Documented by: PG Care Time/CCT Total # of Minutes Spent Total Time Spent with Patient: Total time spent is greater than 50% in coordination of care (as documented) at patient's floor/unit and/or counseling patient: Coding Level of Care Code 08463 Subseq Hosp Care Lvl 2 Diagnoses UTI (urinary tract infection) N30.00 Urinary tract infection type: acute cystitis Hematuria presence: without hematuria Elevated INR R79.1 CKD (chronic kidney disease) stage 4, GFR 15-29 ml/min N18.4 Depression F32.9 Depression Type: major depressive disorder Major depression recurrence: single episode Active/Remission status: remission status unspecified Hypothyroidism E03.9 Hypothyroidism type: unspecified Chronic indwelling Ch catheter Z96.0 History of DVT (deep vein thrombosis) Z86.718 Diabetes E11.9; Z79.4 Diabetes mellitus type: type 2 Diabetes mellitus termite exterminator helper insulin use: with termite exterminator helper use Diabetes mellitus complication status: without complication Paraplegia G82.20 Acute kidney injury N17.9 Catheter-associated urinary tract infection T83.511A; N39.0 (1) UTI (urinary tract infection) Urinary tract infection type: acute cystitis Hematuria presence: without hematuria Qualified Code(s): N30.00 - Acute cystitis without hematuria (2) Depression Depression Type: major depressive disorder Major depression recurrence: single episode Active/Remission status: remission status unspecified Qualified Code(s): F32.9 - Major depressive disorder, single episode, unspecified (3) Hypothyroidism Hypothyroidism type: unspecified Qualified Code(s): E03.9 - Hypothyroidism, unspecified (4) Diabetes Diabetes mellitus type: type 2 Diabetes mellitus termite exterminator helper insulin use: with group home use Diabetes mellitus complication status: without complication Qualified Code(s): E11.9 - Type 2 diabetes mellitus without complications; Z79.4 - prison (current) use of insulin
--- NOTE | 2019-04-15 13:16 | Nephrology Progress Note ---
Date of Service April 15, 2019 Assessment & Plan (1) Acute kidney injury: CKD IV with baseline creatinine around 3.0 mg/dL. History of obstructive uropathy. Admitted to the hospital with UTI requiring IV antibiotic. LATOYA showing signs of some recovery at this time. Creatinine relatively stable. Electrolytes appropriate. Adequate urine output. Volume status acceptable. He is overall feeling well, otherwise asymptomatic and hemodynamically stable. No uremic symptom. Has been having decent urine output. Blood pressure well controlled. Renal function and electrolyte acceptable. --continue on Tums 1 tab TIDM, sodium bicarbonate 650 mg twice a day --monitor renal function with daily renal panel --at the patient's request, dialysis will not be considered part of the care plan under any circumstances --received Epogen 51740 units x1 dose on 04/12/19 and continue on oral iron --dose medications for GFR less than 30 --OK to be DC when medically stable, please schedule out pt lab monitoring and f/u with Dr. Wallis in CKD clinic in 2-4 weeks after DC (2) Chronic kidney disease, stage 4 (severe): (3) UTI (urinary tract infection): (4) Elevated INR: (5) Anemia: (6) Paraplegia: Subjective No acute events overnight. Luis feels well. No fevers or chills. Denies pain. Brown draining yellow urine. Appetite is good. Review of Systems Review of Systems: All systems reviewed & are unremarkable except as noted in HPI & below Physical Exam Constitutional: well developed; no acute distress Eyes: no scleral abnormality and no corneal abnormality ENMT: Mouth: no oral mucosal abnormality and oral mucous membranes not dry Neck: normal visual inspection and trachea midline Respiratory: normal respiratory effort Auscultation: lungs clear to auscultation bilaterally Cardiovascular: Rate/Rhythm: regular rate Heart Sounds: normal S1 and normal S2 Extremities: no edema Musculoskeletal: Extremities: no cyanosis and no clubbing Skin: normal turgor; no lesions Neurologic: Motor/Sensory: no tremor and no asterixis Psychiatric: Orientation: alert and oriented x 3 Results & Data Vital Signs (Past 12 Hours) Vital Signs Temp Pulse Resp BP Pulse Ox 04/15/19 07:18 36.5 C 80 18 124/72 100 Laboratory Results Laboratory Results - last 24 hr 04/14/19 04/14/19 04/14/19 17:22 17:25 20:32 WBC RBC Hgb Hct MCV MCH MCHC RDW Std Deviation RDW Coeff of Marvin Plt Count MPV PT INR Sodium Potassium Chloride Carbon Dioxide Anion Gap BUN Creatinine Est Cr Clr Drug Dosing Est GFR ( Amer) Est GFR (Non-Af Amer) BUN/Creatinine Ratio Glucose POC Glucose 305 H* 291 H 311 H* Calcium Phosphorus Albumin 04/14/19 04/15/19 04/15/19 20:33 06:03 06:03 WBC 15.98 H RBC 3.14 L Hgb 8.4 L Hct 26.0 L MCV 82.8 MCH 26.8 MCHC 32.3 RDW Std Deviation 66.0 H RDW Coeff of Marvin 21.9 H Plt Count 383 MPV 9.4 PT INR Sodium 135 L Potassium 4.0 Chloride 107 Carbon Dioxide 21 Anion Gap 7.0 BUN 59 H Creatinine 4.83 H* Est Cr Clr Drug Dosing 16.8 Est GFR ( Amer) 13.3 Est GFR (Non-Af Amer) 11.5 BUN/Creatinine Ratio 12.1 Glucose 168 H POC Glucose 312 H* Calcium 8.8 Phosphorus 5.1 H Albumin 2.2 L 04/15/19 04/15/19 04/15/19 06:03 07:40 11:28 WBC RBC Hgb Hct MCV MCH MCHC RDW Std Deviation RDW Coeff of Marvin Plt Count MPV PT 15.6 H INR 1.6 H Sodium Potassium Chloride Carbon Dioxide Anion Gap BUN Creatinine Est Cr Clr Drug Dosing Est GFR ( Amer) Est GFR (Non-Af Amer) BUN/Creatinine Ratio Glucose POC Glucose 178 H 258 H Calcium Phosphorus Albumin PG Care Time/CCT Total # of Minutes Spent Total Time Spent with Patient: Total time spent is greater than 50% in coordination of care (as documented) at patient's floor/unit and/or counseling patient: Coding Level of Care Code 84874 Subseq Hosp Care Lvl 3 Diagnoses Acute kidney injury N17.9 Chronic kidney disease, stage 4 (severe) N18.4 UTI (urinary tract infection) N30.00 Urinary tract infection type: acute cystitis Hematuria presence: without hematuria Elevated INR R79.1 Anemia D64.9 Anemia type: unspecified type Paraplegia G82.20 (1) UTI (urinary tract infection) Urinary tract infection type: acute cystitis Hematuria presence: without hematuria Qualified Code(s): N30.00 - Acute cystitis without hematuria (2) Anemia Anemia type: unspecified type Qualified Code(s): D64.9 - Anemia, unspecified
[2019-04-15] MEDS: WARFARIN SOD 6 MG TAB PO SCH (16:08)
[2019-04-15] MEDS: CEFEPIME 1,000 MG in SYRINGE 0 ML IV SCH (21:34)
[2019-04-16 06:09] LABS: Hematocrit (blood only) 26.1 % (42-52); Hemoglobin 8.3 g/dL (14.0-18.0); Mean Corpuscular Hemoglobin 26.4 pg (25-34); Mean Corpuscular Hgb Conc 31.8 g/dL (32-36); Mean Corpuscular Volume 83.1 fL (80-100); Mean Platelet Volume 9.8 fL (7.4-10.4); Nucleated RBC # (auto) 0.03 K/uL (0-0); Nucleated RBC % (auto) 0.2 %; Platelet Count 417 K/uL (130-400); RDW Coefficient of Variation 21.7 % (11.5-14.5); RDW Standard Deviation 65.8 fL (36.4-46.3); Red Blood Count 3.14 M/uL (4.7-6.1); White Blood Count 16.17 K/uL (4.8-10.8)
[2019-04-16] MEDS: LEVOTHYROXINE SODIUM 50 MCG TABLET PO SCH (06:16)
[2019-04-16 07:22] LABS: BUN Creatinine Ratio 12.8 (10-20); Calcium 9.1 mg/dl (8.5-10.1); Creatinine Clr Calc Pharmacy 17.4 ml/min; Est GFR (African American) 13.9; Potassium 4.1 mmol/L (3.5-5.1)
[2019-04-16] MEDS: LACTOBACILLUS ACIDOPHILUS (FLORANEX) TAB PO SCH (08:29)
[2019-04-16] MEDS: MULTIVITAMIN TAB PO SCH (08:29)
[2019-04-16] MEDS: CALCIUM CARBONATE 500 MG CHEWABLE TAB PO SCH ×2 (08:30→12:38)
[2019-04-16] MEDS: FERROUS GLUCONATE 324 MG TAB PO SCH (08:31)
[2019-04-16] MEDS: CITALOPRAM 40 MG TAB PO SCH (08:31)
[2019-04-16] MEDS: SODIUM BICARBONATE 650 MG TAB PO SCH (08:31)
[2019-04-16] MEDS: INSULIN DETEMIR FLEXPEN/FLEX TOUCH 100 UNITS/ML 3ML SQ SCH (08:39)
[2019-04-16] MEDS: INSULIN ASPART 100 UNITS/ML 3 ML PEN SC SCH ×2 (08:40→12:42)
--- NOTE | 2019-04-16 12:17 | Nephrology Progress Note ---
Date of Service April 16, 2019 Assessment & Plan (1) Acute kidney injury: CKD IV with baseline creatinine around 3.0 mg/dL. History of obstructive uropathy. Admitted to the hospital with UTI requiring IV antibiotic. LATOYA showing signs of some recovery at this time. Electrolytes appropriate. Adequate urine output. Volume status acceptable. He is overall feeling well, otherwise asymptomatic and hemodynamically stable. No uremic symptom. Has been having decent urine output. Blood pressure well controlled. Renal function and electrolyte acceptable. --continue on Tums 1 tab TIDM, sodium bicarbonate 650 mg twice a day --monitor renal function with daily renal panel --at the patient's request, dialysis will not be considered part of the care plan under any circumstances --received Epogen 83121 units x1 dose on 04/12/19 and continue on oral iron --dose medications for GFR less than 30 --OK to be DC when medically stable, please schedule out pt lab monitoring and f/u with Dr. Wallis in CKD clinic in 2-4 weeks after DC (2) Chronic kidney disease, stage 4 (severe): (3) UTI (urinary tract infection): (4) Elevated INR: (5) Anemia: (6) Paraplegia: Subjective No acute events overnight. Luis feels well. No fevers or chills. Denies pain. Brown draining yellow urine. Appetite is good. Review of Systems Review of Systems: All systems reviewed & are unremarkable except as noted in HPI & below Physical Exam Constitutional: well developed; no acute distress Eyes: no scleral abnormality and no corneal abnormality ENMT: Mouth: no oral mucosal abnormality and oral mucous membranes not dry Neck: normal visual inspection and trachea midline Respiratory: normal respiratory effort Auscultation: lungs clear to auscultation bilaterally Cardiovascular: Rate/Rhythm: regular rate Heart Sounds: normal S1 and normal S2 Extremities: no edema Musculoskeletal: Extremities: no cyanosis and no clubbing Skin: normal turgor; no lesions Neurologic: Motor/Sensory: no tremor and no asterixis Psychiatric: Orientation: alert and oriented x 3 Results & Data Vital Signs (Past 12 Hours) Vital Signs Temp Pulse Resp BP Pulse Ox 04/16/19 07:19 36.7 C 82 18 110/66 97 Laboratory Results Laboratory Results - last 24 hr 04/15/19 04/15/19 04/16/19 16:44 20:19 05:32 WBC 16.17 H RBC 3.14 L Hgb 8.3 L Hct 26.1 L MCV 83.1 MCH 26.4 MCHC 31.8 L RDW Std Deviation 65.8 H RDW Coeff of Marvin 21.7 H Plt Count 417 H MPV 9.8 Absolute Nucleated RBC 0.03 H Nucleated RBC % (auto) 0.2 Sodium Potassium Chloride Carbon Dioxide Anion Gap BUN Creatinine Est Cr Clr Drug Dosing Est GFR ( Amer) Est GFR (Non-Af Amer) BUN/Creatinine Ratio Glucose POC Glucose 118 H 145 H Calcium 04/16/19 04/16/19 04/16/19 05:32 07:50 11:39 WBC RBC Hgb Hct MCV MCH MCHC RDW Std Deviation RDW Coeff of Marvin Plt Count MPV Absolute Nucleated RBC Nucleated RBC % (auto) Sodium 136 Potassium 4.1 Chloride 107 Carbon Dioxide 21 Anion Gap 8.0 BUN 59 H Creatinine 4.66 H* Est Cr Clr Drug Dosing 17.4 Est GFR ( Amer) 13.9 Est GFR (Non-Af Amer) 12.0 BUN/Creatinine Ratio 12.8 Glucose 122 H POC Glucose 154 H 259 H Calcium 9.1 PG Care Time/CCT Total # of Minutes Spent Total Time Spent with Patient: Total time spent is greater than 50% in coordination of care (as documented) at patient's floor/unit and/or counseling patient: Coding Level of Care Code 01630 Subseq Hosp Care Lvl 3 Diagnoses Acute kidney injury N17.9 Chronic kidney disease, stage 4 (severe) N18.4 UTI (urinary tract infection) N30.00 Urinary tract infection type: acute cystitis Hematuria presence: without hematuria Elevated INR R79.1 Anemia D64.9 Anemia type: unspecified type Paraplegia G82.20 (1) UTI (urinary tract infection) Urinary tract infection type: acute cystitis Hematuria presence: without hematuria Qualified Code(s): N30.00 - Acute cystitis without hematuria (2) Anemia Anemia type: unspecified type Qualified Code(s): D64.9 - Anemia, unspecified
--- NOTE | 2019-04-16 13:54 | Discharge Summary ---
Date of Service April 16, 2019 Admission HPI Per Admitting Provider Luis Woods is a 69yo C male, T4 paraplegic from fall, CKD IV, DM and anemia. Patient was recently diagnosed with a UTI and started on Bactrim. PCP was notified yesterday by home nursing that the patient's INR was elevated to 8. He was instructed to hold his Coumadin yesterday and today which he did. Patient has an indwelling Ch catheter and has had dark urine output over the last few days. also states that he has a lot of mucus and sediment in his urine which is typical of his UTIs. He has a wound on his back which has been bleeding significantly since yesterday. His reports he soaked through the bed. +subjective fevers and chills +nausea and dry heaves and dizziness en route to hospital Principal Diagnosis Catheter associated UTI Discharge Exam Constitutional WD/WN, vitals as above Eyes PERRL, conjunctivae normal, anicteric sclerae ENMT external ear and nose normal, oropharynx normal Neck trachea midline, no thyromegaly Respiratory normal respiratory effort, lungs clear to auscultation Cardiovascular RRR, no murmur, no edema Gastrointestinal (Abdomen) normal bowel sounds, soft, nontender, no hepatosplenomegaly Musculoskeletal Head/Neck/Chest: normocephalic and head atraumatic Extremities: strength 5/5 throughout (upper extremities, lower extremities paralyzed) and + muscle atrophy (lower extremities); no cyanosis, no clubbing and no petechiae Skin no rashes, warm and dry Neurologic CN's II-XI intact bilaterally and awake; + does not move all extremities (lower extremity paralysis) Psychiatric A+Ox3, euthymic affect Lymphatic no cervical or axillary lymphadenopathy Discharge Data Allergies Allergy/AdvReac Type Severity Reaction Status Date / Time No Known Allergies Allergy Unverified 03/13/19 12:55 Consultations 04/12/19 08:52 Consult Nephrology Routine Hospital Course (1) UTI (urinary tract infection): Patient with chronic indwelling Ch presenting with acute UTI. Culture from 04/06/19 +Klebsiella PNA and Pseudomonas aeruginosa. Patient previously being treated with Bactrim WBC stable at 16k, no fever, vitals stable will change to Cefepime 1gm IV daily (renal dosing) plan for 14 days total starting from day one of this admission US guided IV placed for home IV access [facility] set up for home IV Cefepime to start on day after discharge ch exchanged on 04/14 while in hospital (2) Elevated INR: INR = 9.5, repeat 7.9. Slight bleeding from a skin tear on his back. Possibly secondary to effects of Bactrim. Last dose of Coumadin was Sunday 04/09 -Vitamin K 5mg po x 1 dose on admission -Repeat INR down to 1.6 discussed using Xarelto with the patient, would depend on renal recovery cost would be $47/month, he will consider it could also consider Eliquis since it is better with poor renal function he can d/w PCP of note, will d/c home on Coumadin 4mg daily instead of alternating with 6mg dose since his INR was 9.5 will check INR on 04/19 with home nursing (3) CKD (chronic kidney disease) stage 4, GFR 15-29 ml/min: CKD with baseline Cr of 2.78, Cr up to 4.98 at time of admission. Possibl y secondary to volume contraction, medication effects from Bactrim. Patient with adequate UOP. K stable represents LATOYA on CKD stage IV Cr down slightly to 4.66 patient is drinking well, continues to make a lot of urine, no need for IV fluids -Continue sodium bicarbonate 650mg po BID -Continue PO iron and Aranesp for AOCD Dr. Shen following patient would not be interested in HD if it would be needed will d/c to home with BMP this week, fax results to Dr. Wallis's office (4) Depression: Chronic. Stable -Continue Celexa 40mg po daily (5) Hypothyroidism: Chronic -Continue Synthroid 50mcg po daily (6) Chronic indwelling Ch catheter: UTI management as above exchanged ch on 04/14 (7) History of DVT (deep vein thrombosis): Patient on coumadin anticoagulation - see above -Continue to hold Coumadin -INR is < 2 again, discussed changing to NOAC since he gets supratherapeutic INR d/c home on Coumadin 4mg daily (8) Diabetes: Chronic. -Continue Levemir 10u qM and 20u qPM -ISS monitor for hypoglycemia, no episodes during admission, eating well (9) Paraplegia: Noted -Frequent turning and wound care (10) Acute kidney injury: LATOYA on CKD stage IV associated with CA UTI see above, continue to encourage PO intake, monitor UO K is stable Cr is 4.66 on discharge, check BMP this week (11) Catheter-associated urinary tract infection: change to Cefepime will need 2 week course due to ch catheter plan for US guided IV since it will be short time frame Total Time Total Time Spent Total Time Spent (In Minutes): 35 minutes Total Time Includes: Examination of the Patient, Discharge Planning, Medication Reconciliation, Communication With Other Providers (Dr. Shen) and Other (discussion with patient's ) Discharge Plan Discharge Items Patient Disposition: Home - Home Health Services Reason For Visit: UTI,ELEVATED INR Discharge Diagnosis: Catheter associated UTI Acute kidney injury on CKD stage IV Condition on Discharge: Good Goals: complete course of Cefepime IV check renal panel this week with results to Dr. Wallis check INR this week Activity: Resume your previous activity Non-emergency contact: Primary Care Provider and Access Services Assistant Call non-emergency contact if: you have any medication questions and your symptoms worsen Follow-up/Referrals: Diogo Wallis MD [Physician] - (2-4 weeks) Luis Enrique Weinstein III, MD [Primary Care Provider] - (Patient's will call to make a follow-up appointment.) Diet: Carb Consistent or DM2 and Low Potassium (2gm) Ambulatory Orders: Basic Metabolic Panel (Routine) Timeframe: 3 Days Location: Determined by Patient Ordered By: Javier Dorman Prothrombin Time INR (Routine) Timeframe: 3 Days Location: Determined by Patient Ordered By: Javier Dorman Addtl Attending Provider Instructions: Medications: - CEFEPIME: 1gm IV daily for two weeks, script sent to [facility] - TUMS: take as prescribed - COUMADIN: dose lowered to 4mg daily since your INR was so high Catheter associated UTI outpatient urine culture with Klebsiella and Pseudomonas treated initially with Zosyn, converted to Cefepime for ease of once a day dosing US guided IV placed which can stay for several weeks script sent to [facility] for Cefepime 1gm IV daily, start tomorrow at home catheter exchanged on 04/14 Elevated INR: quite high on admission recommend reducing home dose to 4mg daily we discussed Xarelto as option, but not great with your renal function you can discuss other options such as Eliquis with Dr. Weinstein check INR this week Acute kidney injury on CKD stage IV Cr still elevated from baseline at 4.6 however, you have been making urine, electrolytes are all stable continue to stay well hydrated, follow low potassium diet will ask home RN to check labs this week and fax to Dr. Wallis Pending Studies at Discharge: No Stand-Alone Forms: My [facility] [employer], Smoking Cessation Medications and DC Order Prescriptions: New calcium carbonate [Tums] 200 mg calcium (500 mg) Tablet,Chewable 500 mg PO TIDM 30 Days Qty: 75 RF: 0 Continued multivitamin capsule 1 cap PO DAILY RF: 0 Adult Probiotic 3 billion cell capsule 3,000 mmu cells PO DAILY RF: 0 sodium bicarbonate 650 mg tablet 650 mg PO BID RF: 0 Levemir FlexTouch U-100 Insuln 100 unit/mL (3 mL) insulin pen 10 units SQ .COMPLEX Qty: 15 RF: 11 citalopram [Celexa] 40 mg tablet 40 mg PO DAILY Qty: 90 RF: 3 levothyroxine 50 mcg tablet 50 mcg PO DAILY Qty: 90 RF: 3 Retacrit 10,000 unit/mL solution 20,000 units SQ .every 14 days 360 Days Qty: 4 RF: 11 (DME) lancets [OneTouch Delica Lancets] 30 gauge misc See Dose Instructions .ROUTE .MEDSUPPLY Qty: 25 RF: 0 (DME) pen needle, diabetic [ReliOn Pen [place]] 32 gauge x 5/32" needle See Dose Instructions .ROUTE .MEDSUPPLY Qty: 10 RF: 0 (DME) ReliOn Prime Test Strips strip See Dose Instructions .ROUTE .MEDSUPPLY Qty: 10 RF: 0 (DME) pen needle, diabetic [BD Ultra-Fine Mini Pen Needle] 31 gauge x 3/16" needle See Dose Instructions .ROUTE .MEDSUPPLY Qty: 30 RF: 0 ferrous gluconate [Ferate] 240 mg (27 mg iron) tablet 240 mg PO BID RF: 0 Changed warfarin 2 mg tablet 4 mg PO DAILY Qty: 60 RF: 3 Discontinued sulfamethoxazole-trimethoprim [Bactrim DS] 800-160 mg tablet 1 tab PO BID 7 Days Qty: 14 RF: 0 Discharge Orders: Discharge Order (Routine); Ordered 04/16/19 Ordered By: Javier Dorman Admission Data Admit Date/Time: 02/18/20 14:20 Attending Provider: Javier Dorman Admit Provider: Amira Lamas Primary Care Provider: Luis Enrique Weinstein III Other Providers: Jaci Moreno ; [place] Other Interventions: Discharge Summary Assessment (RN) Last Done: 04/16/19 14:57 DC Date/Time DO NOT enter until pt leaves facility: 04/16/19 17:18 Coding Level of Care Code D/C Day Management >30 mins Diagnoses UTI (urinary tract infection) N30.00 Hematuria presence: without hematuria Urinary tract infection type: acute cystitis Elevated INR R79.1 CKD (chronic kidney disease) stage 4, GFR 15-29 ml/min N18.4 Depression F32.9 Active/Remission status: remission status unspecified Depression Type: major depressive disorder Major depression recurrence: single episode Hypothyroidism E03.9 Hypothyroidism type: unspecified Chronic indwelling Ch catheter Z96.0 History of DVT (deep vein thrombosis) Z86.718 Diabetes E11.9; Z79.4 Diabetes mellitus complication status: without complication Diabetes mellitus usp insulin use: with usp use Diabetes mellitus type: type 2 Paraplegia G82.20 Acute kidney injury N17.9 Catheter-associated urinary tract infection T83.511A; N39.0
[2019-04-16] MEDS: WARFARIN SOD 6 MG TAB PO SCH (16:26)
[2019-04-16] MEDS: CEFEPIME 1,000 MG in SYRINGE 0 ML IV SCH (16:27)
== END 2019-04-16 17:18 | disposition home health service (06) | DRG 699 ==
LOC: 4W 14:20 → SUATTDRO 14:20